=== PATIENT | female | born 1940 | race Two or more races ===

== ENCOUNTER 2017-09-18 14:10 | Inpatient (IN) | payer OTHER ==
[~2017-09-18] VITALS: Ht 162.6 cm; Wt 44.0 kg
[2017-09-18 14:10] VITALS: BP 140/62
[2017-09-18] MEDS ORDERED: Sodium Chloride 500ML 500 ML IV ONE (14:16)
--- NOTE | 2017-09-18 14:32 | Emergency Room Report ---
History of Present Illness General Chief Complaint: Dizziness Source: Patient, EMS Present Illness HPI Patient presents with complaints of significant dizziness Patient also had what sounds to be likely syncopal episode However the patient is a poor historian Reports that she has had dizziness in the past denies any change in medications she has felt weak over the past few days Denies any obvious fevers denies any focal weakness denies any vomiting or diarrhea denies any dysuria frequency Allergies: Uncoded Allergies: "ANTIBIOTICS" (Allergy, Unknown, 09/18/17) Patient History Past Medical History: see triage record Pertinent Family History: none Last Menstrual Period: N/A Now: No Reviewed Nursing Documentation: PMH: Agreed; PSxH: Agreed Nursing Documentation-PMH Past Medical History: No History, Except For History Of Psychiatric Problem: Yes - memory loss, depression Review of Systems All Other Systems: negative except mentioned in HPI Physical Exam Vital Signs Date Time Temp Pulse Resp B/P (MAP) Pulse Ox O2 Delivery O2 Flow Rate FiO2 09/18/17 14:00 98.0 82 20 126/68 98 98.1 Sp02 EP Interpretation: reviewed, normal General Appearance: well appearing, no apparent distress Head: normocephalic, atraumatic Eyes: bilateral eye PERRL, bilateral eye EOMI ENT: hearing grossly normal, normal pharynx, TMs + canals normal, uvula midline Neck: full range of motion, supple, no meningismus, no bony tend Respiratory: lungs clear, normal breath sounds, no rhonchi, no respiratory distress, no retraction, no accessory muscle use Cardiovascular #1: normal peripheral pulses, regular rate, rhythm, no edema, no gallop, no JVD, no murmur Gastrointestinal: normal bowel sounds, non tender, soft, no mass, no organomegaly, non-distended, no guarding, no hernia, no pulsatile mass, no rebound Genitourinary: no CVA tenderness Musculoskeletal: normal inspection Neurologic: oriented x3, responsive, separations scientist III-XII nml as tested, motor strength/ tone normal, sensory intact Psychiatric: mood/affect normal Skin: normal color, no rash, warm/dry, palpation normal Lymphatic: normal inspection, no adenopathy Medical Decision Making Diagnostic Impression: Primary Impression: Dizziness Additional Impression: Syncope ER Course Patient is a fairly complex patient with multiple differential to consideration including but not limited to cardiac cardiopulmonary and vascular emergencies Given the patient's significant dizziness as well MRI was obtained which did not show any acute pathology patient receiving further hydration And requires further inpatient care Labs Test 09/18/17 14:30 09/18/17 15:05 09/19/17 07:34 09/19/17 14:15 White Blood Count 7.2 K/UL (4.8-10.8) 6.9 K/UL (4.8-10.8) Red Blood Count 4.40 M/UL (4.20-5.40) 4.62 M/UL (4.20-5.40) Hemoglobin 13.1 G/DL (12.0-16.0) 13.7 G/DL (12.0-16.0) Hematocrit 37.8 % (37.0-47.0) 40.2 % (37.0-47.0) Mean Corpuscular Volume 86 FL (80-99) 87 FL (80-99) Mean Corpuscular Hemoglobin 29.8 PG (27.0-31.0) 29.7 PG (27.0-31.0) Mean Corpuscular Hemoglobin Concent 34.8 G/DL (32.0-36.0) 34.2 G/DL (32.0-36.0) Red Cell Distribution Width 11.8 % (11.6-14.8) 12.1 % (11.6-14.8) Platelet Count 295 K/UL (150-450) 343 K/UL (150-450) Mean Platelet Volume 5.4 FL (6.5-10.1) 5.2 FL (6.5-10.1) Neutrophils (%) (Auto) 55.7 % (45.0-75.0) 45.4 % (45.0-75.0) Lymphocytes (%) (Auto) 26.3 % (20.0-45.0) 31.6 % (20.0-45.0) Monocytes (%) (Auto) 7.0 % (1.0-10.0) 6.3 % (1.0-10.0) Eosinophils (%) (Auto) 10.2 % (0.0-3.0) 16.0 % (0.0-3.0) Basophils (%) (Auto) 0.9 % (0.0-2.0) 0.7 % (0.0-2.0) Prothrombin Time 10.2 SEC (9.30-11.50) 9.7 SEC (9.30-11.50) Prothromb Time International Ratio 1.0 (0.9-1.1) 0.9 (0.9-1.1) Activated Partial Thromboplast Time 24 SEC (23-33) 19 SEC (23-33) Sodium Level 136 MMOL/L (136-145) 141 MMOL/L (136-145) Potassium Level 3.3 MMOL/L (3.5-5.1) 4.0 MMOL/L (3.5-5.1) Chloride Level 99 MMOL/L (98-107) 104 MMOL/L (98-107) Carbon Dioxide Level 27 MMOL/L (21-32) 27 MMOL/L (21-32) Anion Gap 10 mmol/L (5-15) 10 mmol/L (5-15) Blood Urea Nitrogen 10 mg/dL (7-18) 13 mg/dL (7-18) Creatinine 0.8 MG/DL (0.55-1.30) 0.8 MG/DL (0.55-1.30) Estimat Glomerular Filtration Rate mL/min (>60) mL/min (>60) Glucose Level 107 MG/DL (74-106) 107 MG/DL (74-106) Calcium Level 9.1 MG/DL (8.5-10.1) 9.6 MG/DL (8.5-10.1) Total Bilirubin 0.4 MG/DL (0.2-1.0) 0.5 MG/DL (0.2-1.0) Aspartate Amino Transf (AST/SGOT) 24 U/L (15-37) 24 U/L (15-37) Alanine Aminotransferase (ALT/SGPT) 28 U/L (12-78) 34 U/L (12-78) Alkaline Phosphatase 75 U/L (46-116) 78 U/L (46-116) Total Creatine Kinase 70 U/L (26-308) Creatine Kinase MB < 0.5 NG/ML (0.0-3.6) Creatine Kinase MB Relative Index 0.7 Troponin I 0.000 ng/mL (0.000-0.056) 0.003 ng/mL (0.000-0.056) Total Protein 7.2 G/DL (6.4-8.2) 7.6 G/DL (6.4-8.2) Albumin 3.7 G/DL (3.4-5.0) 3.9 G/DL (3.4-5.0) Globulin 3.5 g/dL 3.7 g/dL Albumin/Globulin Ratio 1.1 (1.0-2.7) 1.1 (1.0-2.7) Lipase 164 U/L (73-393) Urine Color Pale yellow Urine Appearance Clear Urine pH 8 (4.5-8.0) Urine Specific [place] 1.010 (1.005-1.035) Urine Protein Negative (NEGATIVE) Urine Glucose (UA) Negative (NEGATIVE) Urine Ketones Negative (NEGATIVE) Urine Occult Blood 1+ (NEGATIVE) Urine Nitrite Negative (NEGATIVE) Urine Bilirubin Negative (NEGATIVE) Urine Urobilinogen Normal MG/DL (0.0-1.0) Urine Leukocyte Esterase 1+ (NEGATIVE) Urine RBC 2-4 /HPF (0 - 2) Urine WBC 0-2 /HPF (0 - 2) Urine Squamous Epithelial Cells Few /LPF (NONE/OCC) Urine Amorphous Sediment Few /LPF (NONE) Urine Bacteria Few /HPF (NONE) Triglycerides Level 235 MG/DL (30-150) Cholesterol Level 290 MG/DL (< 200) LDL Cholesterol 208 mg/dL (<100) HDL Cholesterol 56 MG/DL (40-60) Cholesterol/HDL Ratio 5.2 (3.3-4.4) Thyroid Stimulating Hormone (TSH) 2.208 uiU/mL (0.358-3.740) EKG Diagnostic Results Rate: normal Rhythm: NSR ST Segments: no acute changes Rhythm Strip Diag. Results EP Interpretation: yes Rate: 66 Rhythm: NSR, no PVC's, no ectopy Chest X-Ray Diagnostic Results Chest X-Ray Diagnostic Results : Chest X-Ray Ordered: Yes # of Views/Limited/Complete: 1 View Indication: Chest Pain EP Interpretation: Yes Interpretation: no consolidation, no effusion Impression: No acute disease Electronically Signed by: Compa Payton, CT/MRI/US Diagnostic Results CT/MRI/US Diagnostic Results : Impression MRI brain no acute disease Last Vital Signs Date Time Temp Pulse Resp B/P (MAP) Pulse Ox O2 Delivery O2 Flow Rate FiO2 09/18/17 14:00 98.0 82 20 126/68 98 98.1 Status: improved Disposition: ADMITTED INPATIENT Condition: Serious Compa Payton DO Sep 18, 2017 14:32
[2017-09-18 15:00] LABS: BASOPHILS % (AUTO) 0.9 % (0.0-2.0); EOSINOPHILS % (AUTO) 10.2 % (0.0-3.0); HEMATOCRIT 37.8 % (37.0-47.0); HEMOGLOBIN 13.1 G/DL (12.0-16.0); LYMPHOCYTES % (AUTO) 26.3 % (20.0-45.0); MEAN CORPUSCULAR VOLUME 86 FL (80-99); NEUTROPHILS % (AUTO) 55.7 % (45.0-75.0); PLATELET COUNT 295 K/UL (150-450); RED CELL DISTRIBUTION WIDTH 11.8 % (11.6-14.8); WHITE BLOOD COUNT 7.2 K/UL (4.8-10.8)
[2017-09-18 15:10] LABS: ANION GAP 10 mmol/L (5-15); BLOOD UREA NITROGEN 10 mg/dL (7-18); CALCIUM 9.1 MG/DL (8.5-10.1); CARBON DIOXIDE 27 MMOL/L (21-32); CHLORIDE 99 MMOL/L (98-107); CREATININE 0.8 MG/DL (0.55-1.30); POTASSIUM 3.3 MMOL/L (3.5-5.1); SODIUM 136 MMOL/L (136-145)
[2017-09-18 15:11] VITALS: BP 135/60
[2017-09-18 15:23] LABS: ALANINE AMINOTRANSFERASE 28 U/L (12-78); ALBUMIN 3.7 G/DL (3.4-5.0); ALBUMIN/GLOBULIN RATIO 1.1 (1.0-2.7); ALKALINE PHOSPHATASE 75 U/L (46-116); ASPARTATE AMINO TRANSFERASE 24 U/L (15-37); BILIRUBIN,TOTAL 0.4 MG/DL (0.2-1.0); CKMB < 0.5 NG/ML (0.0-3.6); CREATINE KINASE 70 U/L (26-308)
[2017-09-18] MEDS ORDERED: RANITIDINE HCL150 MG ORAL (15:36)
[2017-09-18] MEDS ORDERED: FOLIC ACID1 MG ORAL (15:36)
[2017-09-18] MEDS ORDERED: DONEPEZIL HCL5 M2 ORAL (15:36)
[2017-09-18] MEDS ORDERED: D3 DOTS2000 UNI1 PO (15:36)
--- NOTE | 2017-09-18 15:48 | Diagnostic Imaging Report ---
Indication: Chest pain Technique: One view of the chest Comparison: none Findings: Lungs and pleural spaces are clear. Heart size is normal. The aorta is somewhat tortuous and ectatic. There are left axillary surgical clips Impression: No acute process
[2017-09-18 15:50] LABS: APPEARANCE,URINE CLEAR; BILIRUBIN, URINE NEGATIVE (NEGATIVE); COLOR,URINE PALE YELLOW; GLUCOSE, URINE (UA) NEGATIVE (NEGATIVE); KETONES,URINE NEGATIVE (NEGATIVE); LEUKOCYTE ESTERASE ,URINE 1+ (NEGATIVE); NITRITE,URINE NEGATIVE (NEGATIVE); PH,URINE 8 (4.5-8.0); PROTEIN,URINE NEGATIVE (NEGATIVE); UROBILINOGEN,URINE NORMAL MG/DL (0.0-1.0)
[2017-09-18 16:30] VITALS: BP 132/64
[2017-09-18 19:20] VITALS: BP 142/54
[2017-09-18] MEDS ORDERED: Mylanta II UD 30ml ORAL PRN (19:30)
[2017-09-18] MEDS ORDERED: Nitroglycerin Subl 0.4mg tab SL PRN (19:30)
[2017-09-18] MEDS ORDERED: Albuterol/Ipratropium 3ml neb HHN PRN (19:30)
[2017-09-18] MEDS ORDERED: Morphine Sulfate 4mg/ml Inj IVP PRN (19:30)
[2017-09-18] MEDS ORDERED: LORazepam Inj 2mg/ml 1ml IV PRN (19:30)
[2017-09-18] MEDS ORDERED: Miralax 17gm pkt ORAL PRN (19:30)
[2017-09-18 20:54] VITALS: BP 123/65
[2017-09-18] MEDS: Heparin 5000 units/ml inj SUBQ SCH (22:06)
[2017-09-19] VITALS: BP 140/69
[2017-09-19] MEDS ORDERED: ALENDRONATE SOD70 MG PO (02:02)
[2017-09-19] MEDS ORDERED: MIRTAZAPINE15 M3 PO (02:02)
[2017-09-19 04:00] VITALS: BP 144/62
[2017-09-19 08:00] VITALS: BP 128/64
[2017-09-19] MEDS: Donepezil 5mg Tab ORAL SCH (08:15)
[2017-09-19] MEDS: Heparin 5000 units/ml inj SUBQ SCH ×2 (08:17→21:14)
--- NOTE | 2017-09-19 08:44 | Diagnostic Imaging Report ---
Indication: Dizziness and vertigo Technique: sagittal T1 fast spin echo, axial T1 FLAIR, axial T2 FLAIR, axial T2 FS PROPELLER, axial T2* GRE, axial diffusion weighted images. ADC and exponential ADC maps generated Comparison: none Findings: No abnormal areas of restricted diffusion to suggest acute infarction. No acute hemorrhage or edema. No mass effect nor midline shift. There is mild age-related enlargement of the ventricles and extra axial CSF spaces. There is evidence of prior bilateral cataract surgery. The sinuses are unremarkable. The vascular flow voids are preserved. Impression: Essentially unremarkable exam. Minimal age-related volume loss is noted This agrees with the preliminary interpretation provided overnight by [facility] teleradiology service.
[2017-09-19 09:10] LABS: INR 0.9 (0.9-1.1)
[2017-09-19 09:11] LABS: BASOPHILS % (AUTO) 0.7 % (0.0-2.0); HEMATOCRIT 40.2 % (37.0-47.0); HEMOGLOBIN 13.7 G/DL (12.0-16.0); LYMPHOCYTES % (AUTO) 31.6 % (20.0-45.0); MEAN CORPUSCULAR VOLUME 87 FL (80-99); MONOCYTES % (AUTO) 6.3 % (1.0-10.0); NEUTROPHILS % (AUTO) 45.4 % (45.0-75.0); PLATELET COUNT 343 K/UL (150-450); RED BLOOD COUNT 4.62 M/UL (4.20-5.40); RED CELL DISTRIBUTION WIDTH 12.1 % (11.6-14.8); WHITE BLOOD COUNT 6.9 K/UL (4.8-10.8)
[2017-09-19 09:37] LABS: ALANINE AMINOTRANSFERASE 34 U/L (12-78); ALBUMIN 3.9 G/DL (3.4-5.0); ALBUMIN/GLOBULIN RATIO 1.1 (1.0-2.7); ALKALINE PHOSPHATASE 78 U/L (46-116); ANION GAP 10 mmol/L (5-15); ASPARTATE AMINO TRANSFERASE 24 U/L (15-37); BILIRUBIN,TOTAL 0.5 MG/DL (0.2-1.0); BLOOD UREA NITROGEN 13 mg/dL (7-18); CALCIUM 9.6 MG/DL (8.5-10.1); CARBON DIOXIDE 27 MMOL/L (21-32); CHLORIDE 104 MMOL/L (98-107); CHOLESTEROL 290 MG/DL (< 200); CREATININE 0.8 MG/DL (0.55-1.30); HDL CHOLESTEROL 56 MG/DL (40-60); SODIUM 141 MMOL/L (136-145); TRIGLYCERIDES 235 MG/DL (30-150)
--- NOTE | 2017-09-19 11:55 | Cardiology Progress Note ---
Assessment/Plan Assessment/Plan syncope diarrhea hyperlipiedemia breast cancer hx s/p lumpectomy and chem ivf othostatic trop this am echo to be reviwed repeat ekgh tele so fare neg watch for diarrhea carotidiu duplex treat hyperlipdiemai if any vascular disease on carotid info obtained vie staff who speak khmer [id number] Objective Last 24 Hour Vital Signs Date Time Temp Pulse Resp B/P (MAP) Pulse Ox O2 Delivery O2 Flow Rate FiO2 09/19/17 10:15 80 18 Room Air 21 09/19/17 08:00 97.6 80 19 128/64 97 Room Air 97.6 09/19/17 08:00 86 09/19/17 04:08 74 09/19/17 04:00 97.6 74 19 144/62 97 Room Air 97.6 09/19/17 00:00 98.0 78 18 140/69 98 Room Air 98.0 09/19/17 00:00 71 09/18/17 21:20 98.3 71 12 123/65 99 Room Air 98.3 09/18/17 20:54 98.3 71 12 123/65 99 Room Air 98.3 09/18/17 19:20 98.3 70 13 142/54 99 Room Air 98.3 09/18/17 16:30 98.1 74 16 132/64 100 Room Air 98.1 09/18/17 15:11 98.1 75 14 135/60 100 Room Air 98.1 09/18/17 14:10 98.1 76 14 140/62 99 Room Air 98.1 09/18/17 14:00 98.0 82 20 126/68 98 98.1 Intake and Output 09/18/17 09/19/17 19:00 07:00 Intake Total 0 ml 240 ml Balance 0 ml 240 ml Intake Oral 0 ml 240 ml # Voids 4 Laboratory Tests Test 09/18/17 14:30 09/18/17 15:05 09/19/17 07:34 White Blood Count 7.2 K/UL (4.8-10.8) 6.9 K/UL (4.8-10.8) Red Blood Count 4.40 M/UL (4.20-5.40) 4.62 M/UL (4.20-5.40) Hemoglobin 13.1 G/DL (12.0-16.0) 13.7 G/DL (12.0-16.0) Hematocrit 37.8 % (37.0-47.0) 40.2 % (37.0-47.0) Mean Corpuscular Volume 86 FL (80-99) 87 FL (80-99) Mean Corpuscular Hemoglobin 29.8 PG (27.0-31.0) 29.7 PG (27.0-31.0) Mean Corpuscular Hemoglobin Concent 34.8 G/DL (32.0-36.0) 34.2 G/DL (32.0-36.0) Red Cell Distribution Width 11.8 % (11.6-14.8) 12.1 % (11.6-14.8) Platelet Count 295 K/UL (150-450) 343 K/UL (150-450) Mean Platelet Volume 5.4 FL (6.5-10.1) L 5.2 FL (6.5-10.1) L Neutrophils (%) (Auto) 55.7 % (45.0-75.0) 45.4 % (45.0-75.0) Lymphocytes (%) (Auto) 26.3 % (20.0-45.0) 31.6 % (20.0-45.0) Monocytes (%) (Auto) 7.0 % (1.0-10.0) 6.3 % (1.0-10.0) Eosinophils (%) (Auto) 10.2 % (0.0-3.0) H 16.0 % (0.0-3.0) H Basophils (%) (Auto) 0.9 % (0.0-2.0) 0.7 % (0.0-2.0) Prothrombin Time 10.2 SEC (9.30-11.50) 9.7 SEC (9.30-11.50) Prothromb Time International Ratio 1.0 (0.9-1.1) 0.9 (0.9-1.1) Activated Partial Thromboplast Time 24 SEC (23-33) 19 SEC (23-33) L Sodium Level 136 MMOL/L (136-145) 141 MMOL/L (136-145) Potassium Level 3.3 MMOL/L (3.5-5.1) L 4.0 MMOL/L (3.5-5.1) Chloride Level 99 MMOL/L (98-107) 104 MMOL/L (98-107) Carbon Dioxide Level 27 MMOL/L (21-32) 27 MMOL/L (21-32) Anion Gap 10 mmol/L (5-15) 10 mmol/L (5-15) Blood Urea Nitrogen 10 mg/dL (7-18) 13 mg/dL (7-18) Creatinine 0.8 MG/DL (0.55-1.30) 0.8 MG/DL (0.55-1.30) Estimat Glomerular Filtration Rate mL/min (>60) mL/min (>60) Glucose Level 107 MG/DL (74-106) H 107 MG/DL (74-106) H Calcium Level 9.1 MG/DL (8.5-10.1) 9.6 MG/DL (8.5-10.1) Total Bilirubin 0.4 MG/DL (0.2-1.0) 0.5 MG/DL (0.2-1.0) Aspartate Amino Transf (AST/SGOT) 24 U/L (15-37) 24 U/L (15-37) Alanine Aminotransferase (ALT/SGPT) 28 U/L (12-78) 34 U/L (12-78) Alkaline Phosphatase 75 U/L (46-116) 78 U/L (46-116) Total Creatine Kinase 70 U/L (26-308) Creatine Kinase MB < 0.5 NG/ML (0.0-3.6) Creatine Kinase MB Relative Index 0.7 Troponin I 0.000 ng/mL (0.000-0.056) Total Protein 7.2 G/DL (6.4-8.2) 7.6 G/DL (6.4-8.2) Albumin 3.7 G/DL (3.4-5.0) 3.9 G/DL (3.4-5.0) Globulin 3.5 g/dL 3.7 g/dL Albumin/Globulin Ratio 1.1 (1.0-2.7) 1.1 (1.0-2.7) Lipase 164 U/L (73-393) Urine Color Pale yellow Urine Appearance Clear Urine pH 8 (4.5-8.0) Urine Specific [place] 1.010 (1.005-1.035) Urine Protein Negative (NEGATIVE) Urine Glucose (UA) Negative (NEGATIVE) Urine Ketones Negative (NEGATIVE) Urine Occult Blood 1+ (NEGATIVE) H Urine Nitrite Negative (NEGATIVE) Urine Bilirubin Negative (NEGATIVE) Urine Urobilinogen Normal MG/DL (0.0-1.0) Urine Leukocyte Esterase 1+ (NEGATIVE) H Urine RBC 2-4 /HPF (0 - 2) H Urine WBC 0-2 /HPF (0 - 2) Urine Squamous Epithelial Cells Few /LPF (NONE/OCC) Urine Amorphous Sediment Few /LPF (NONE) H Urine Bacteria Few /HPF (NONE) Triglycerides Level 235 MG/DL (30-150) H Cholesterol Level 290 MG/DL (< 200) H LDL Cholesterol 208 mg/dL (<100) H HDL Cholesterol 56 MG/DL (40-60) Cholesterol/HDL Ratio 5.2 (3.3-4.4) H Thyroid Stimulating Hormone (TSH) 2.208 uiU/mL (0.358-3.740) GISELA CLINE Sep 19, 2017 11:55
[2017-09-19 12:00] VITALS: BP 127/70
--- NOTE | 2017-09-19 12:29 | History and Physical ---
History of Present Illness General Date patient seen: Sep 19, 2017 Reason for Hospitalization: Dizziness Present Illness HPI 77 year old female with hx of Depression, breast cancer, s/p resection and chemo BIBA from bus stop where patient has a syncopal episode but denies LOC. Patient fell to her buttocks and denies any injury nor trauma. Patient is [place] Zealander speaking only. Patient is A/OX4, ambulatory, calm and cooperative. She is c/o of recent diarrhea. No episode of chest pain reported. Allergies: Uncoded Allergies: "ANTIBIOTICS" (Allergy, Unknown, 09/18/17) Medication History Scheduled Alendronate Sodium* (Fosamax*), 70 MG PO QWEEK, (Reported) Cholecalciferol (Vitamin D3) (D3 Dots), 100 UNIT PO DAILY, (Reported) Donepezil Hcl* (Donepezil Hcl*), 5 MG ORAL DAILY, (Reported) Folic Acid* (Folic Acid*), 1 MG ORAL DAILY, (Reported) Mirtazapine* (Mirtazapine*), 15 MG PO DAILY, (Reported) Ranitidine Hcl* (Zantac*), 150 MG ORAL TWICE A DAY, (Reported) Patient History Healthcare decision maker Resuscitation status Full Code Advanced Directive on File Past Medical/Surgical History Past Medical/Surgical History: (1) Hypertension (2) Breast cancer Review of Systems All Other Systems: negative except mentioned in HPI Physical Exam General Appearance: cachetic Lines, tubes and drains: peripheral HEENT: normocephalic, atraumatic Neck: non-tender, normal alignment Respiratory/Chest: chest wall non-tender, lungs clear Breasts: no masses Cardiovascular/Chest: normal peripheral pulses Genitourinary/Rectal: normal genital exam Extremities: normal range of motion Skin Exam: normal pigmentation Last 24 Hour Vital Signs Date Time Temp Pulse Resp B/P (MAP) Pulse Ox O2 Delivery O2 Flow Rate FiO2 09/19/17 10:15 80 18 Room Air 21 09/19/17 08:00 97.6 80 19 128/64 97 Room Air 97.6 09/19/17 08:00 86 09/19/17 04:08 74 09/19/17 04:00 97.6 74 19 144/62 97 Room Air 97.6 09/19/17 00:00 98.0 78 18 140/69 98 Room Air 98.0 09/19/17 00:00 71 09/18/17 21:20 98.3 71 12 123/65 99 Room Air 98.3 09/18/17 20:54 98.3 71 12 123/65 99 Room Air 98.3 09/18/17 19:20 98.3 70 13 142/54 99 Room Air 98.3 09/18/17 16:30 98.1 74 16 132/64 100 Room Air 98.1 09/18/17 15:11 98.1 75 14 135/60 100 Room Air 98.1 09/18/17 14:10 98.1 76 14 140/62 99 Room Air 98.1 09/18/17 14:00 98.0 82 20 126/68 98 98.1 Intake and Output 09/18/17 09/19/17 19:00 07:00 Intake Total 0 ml 240 ml Balance 0 ml 240 ml Intake Oral 0 ml 240 ml # Voids 4 Laboratory Tests Test 09/18/17 14:30 09/18/17 15:05 09/19/17 07:34 White Blood Count 7.2 K/UL (4.8-10.8) 6.9 K/UL (4.8-10.8) Red Blood Count 4.40 M/UL (4.20-5.40) 4.62 M/UL (4.20-5.40) Hemoglobin 13.1 G/DL (12.0-16.0) 13.7 G/DL (12.0-16.0) Hematocrit 37.8 % (37.0-47.0) 40.2 % (37.0-47.0) Mean Corpuscular Volume 86 FL (80-99) 87 FL (80-99) Mean Corpuscular Hemoglobin 29.8 PG (27.0-31.0) 29.7 PG (27.0-31.0) Mean Corpuscular Hemoglobin Concent 34.8 G/DL (32.0-36.0) 34.2 G/DL (32.0-36.0) Red Cell Distribution Width 11.8 % (11.6-14.8) 12.1 % (11.6-14.8) Platelet Count 295 K/UL (150-450) 343 K/UL (150-450) Mean Platelet Volume 5.4 FL (6.5-10.1) L 5.2 FL (6.5-10.1) L Neutrophils (%) (Auto) 55.7 % (45.0-75.0) 45.4 % (45.0-75.0) Lymphocytes (%) (Auto) 26.3 % (20.0-45.0) 31.6 % (20.0-45.0) Monocytes (%) (Auto) 7.0 % (1.0-10.0) 6.3 % (1.0-10.0) Eosinophils (%) (Auto) 10.2 % (0.0-3.0) H 16.0 % (0.0-3.0) H Basophils (%) (Auto) 0.9 % (0.0-2.0) 0.7 % (0.0-2.0) Prothrombin Time 10.2 SEC (9.30-11.50) 9.7 SEC (9.30-11.50) Prothromb Time International Ratio 1.0 (0.9-1.1) 0.9 (0.9-1.1) Activated Partial Thromboplast Time 24 SEC (23-33) 19 SEC (23-33) L Sodium Level 136 MMOL/L (136-145) 141 MMOL/L (136-145) Potassium Level 3.3 MMOL/L (3.5-5.1) L 4.0 MMOL/L (3.5-5.1) Chloride Level 99 MMOL/L (98-107) 104 MMOL/L (98-107) Carbon Dioxide Level 27 MMOL/L (21-32) 27 MMOL/L (21-32) Anion Gap 10 mmol/L (5-15) 10 mmol/L (5-15) Blood Urea Nitrogen 10 mg/dL (7-18) 13 mg/dL (7-18) Creatinine 0.8 MG/DL (0.55-1.30) 0.8 MG/DL (0.55-1.30) Estimat Glomerular Filtration Rate mL/min (>60) mL/min (>60) Glucose Level 107 MG/DL (74-106) H 107 MG/DL (74-106) H Calcium Level 9.1 MG/DL (8.5-10.1) 9.6 MG/DL (8.5-10.1) Total Bilirubin 0.4 MG/DL (0.2-1.0) 0.5 MG/DL (0.2-1.0) Aspartate Amino Transf (AST/SGOT) 24 U/L (15-37) 24 U/L (15-37) Alanine Aminotransferase (ALT/SGPT) 28 U/L (12-78) 34 U/L (12-78) Alkaline Phosphatase 75 U/L (46-116) 78 U/L (46-116) Total Creatine Kinase 70 U/L (26-308) Creatine Kinase MB < 0.5 NG/ML (0.0-3.6) Creatine Kinase MB Relative Index 0.7 Troponin I 0.000 ng/mL (0.000-0.056) Total Protein 7.2 G/DL (6.4-8.2) 7.6 G/DL (6.4-8.2) Albumin 3.7 G/DL (3.4-5.0) 3.9 G/DL (3.4-5.0) Globulin 3.5 g/dL 3.7 g/dL Albumin/Globulin Ratio 1.1 (1.0-2.7) 1.1 (1.0-2.7) Lipase 164 U/L (73-393) Urine Color Pale yellow Urine Appearance Clear Urine pH 8 (4.5-8.0) Urine Specific [place] 1.010 (1.005-1.035) Urine Protein Negative (NEGATIVE) Urine Glucose (UA) Negative (NEGATIVE) Urine Ketones Negative (NEGATIVE) Urine Occult Blood 1+ (NEGATIVE) H Urine Nitrite Negative (NEGATIVE) Urine Bilirubin Negative (NEGATIVE) Urine Urobilinogen Normal MG/DL (0.0-1.0) Urine Leukocyte Esterase 1+ (NEGATIVE) H Urine RBC 2-4 /HPF (0 - 2) H Urine WBC 0-2 /HPF (0 - 2) Urine Squamous Epithelial Cells Few /LPF (NONE/OCC) Urine Amorphous Sediment Few /LPF (NONE) H Urine Bacteria Few /HPF (NONE) Triglycerides Level 235 MG/DL (30-150) H Cholesterol Level 290 MG/DL (< 200) H LDL Cholesterol 208 mg/dL (<100) H HDL Cholesterol 56 MG/DL (40-60) Cholesterol/HDL Ratio 5.2 (3.3-4.4) H Thyroid Stimulating Hormone (TSH) 2.208 uiU/mL (0.358-3.740) Height (Feet): 5 Height (Inches): 4.00 Weight (Pounds): 97 Medications Current Medications Medications (Trade) Dose Ordered Sig/Michael Route PRN Reason Start Time Stop Time Status Last Admin Dose Admin Acetaminophen (Tylenol) 650 mg Q4H PRN ORAL Mild Pain/Temp > 100.5 09/19/17 03:30 10/18/17 19:29 Al Hydroxide/Mg Hydroxide (Mylanta II) 30 ml Q6H PRN ORAL dyspepsia 09/18/17 19:30 10/18/17 19:29 Albuterol/ Ipratropium (Albuterol/ Ipratropium) 3 ml EVERY 4 HOURS PRN HHN Shortness of Breath 09/18/17 19:30 09/23/17 19:29 Clonidine HCl (Catapres Tab) 0.1 mg Q4H PRN ORAL For High Blood Pressure 09/18/17 19:30 10/18/17 19:29 Dextrose (Dextrose 50%) 25 ml STAT PRN IV Hypoglycemia 09/18/17 19:30 10/18/17 19:29 Dextrose (Dextrose 50%) 50 ml STAT PRN IV Hypoglycemia 09/18/17 19:30 10/18/17 19:29 Donepezil HCl (Aricept) 5 mg DAILY ORAL 09/19/17 09:00 10/19/17 08:59 09/19/17 08:15 Heparin Sodium (Porcine) (Heparin 5000 units/ml) 5,000 units EVERY 12 HOURS SUBQ 09/18/17 21:00 10/18/17 20:59 09/19/17 08:17 Lorazepam (Ativan 2mg/ml 1ml) 0.5 mg Q4H PRN IV For Anxiety 09/18/17 19:30 09/25/17 19:29 Morphine Sulfate (Morphine Sulfate) 1 mg EVERY 4 HOURS PRN IVP For Pain 7-10 09/18/17 19:30 09/25/17 19:29 Nitroglycerin (Ntg) 0.4 mg Q5M X 3 DOSES PRN SL Prn Chest Pain 09/18/17 19:30 10/18/17 19:29 Ondansetron HCl (Zofran) 4 mg Q6H PRN IVP Nausea & Vomiting 09/18/17 19:30 10/18/17 19:29 Polyethylene Glycol (Miralax) 17 gm HSPRN PRN ORAL Constipation 09/18/17 19:30 10/18/17 19:29 Sodium Chloride 1,000 ml @ 75 mls/hr [id number] IV 09/19/17 12:00 10/19/17 11:59 Temazepam (Restoril) 15 mg HSPRN PRN ORAL Insomnia 09/18/17 19:30 09/25/17 19:29 Assessment/Plan Problem List: (1) Acute encephalopathy ICD Codes: G93.40 - Encephalopathy, unspecified SNOMED: 31287970, [id number] (2) Syncope ICD Codes: R55 - Syncope and collapse SNOMED: 613824278 (3) Breast cancer ICD Codes: C50.919 - Malignant neoplasm of unspecified site of unspecified female breast SNOMED: 435647961 (4) Depression ICD Codes: F32.9 - Major depressive disorder, single episode, unspecified SNOMED: 87231098 Assessment/Plan telemetry monitoring echo doppler of carotid artery cardiology evaluation Maryse Estes MD Sep 19, 2017 12:29
--- NOTE | 2017-09-19 12:59 | Cardiology Report ---
APPROVED REPORT EXAM: Two-dimensional and M-mode echocardiogram with Doppler and color Doppler. INDICATION LV function M-Mode DIMENSIONS IVSd1.3 (0.7-1.1cm)Left Atrium (MM)2.2 (1.6-4.0cm) LVDd4.8 (3.5-5.6cm)Aortic Root3.1 (2.0-3.7cm) PWd1.3 (0.7-1.1cm)Aortic Cusp Exc.1.7 (1.5-2.0cm) LVDs3.2 (2.5-4.0cm) PWs1.7 cm Normal left ventricular chamber size, systolic function and wall motion. Left ventricular ejection fraction estimated to be 500-55 %. Mild left ventricular hypertrophy. No evidence of pericardial effusion. All other cardiac chamber sizes are within normal limits. Mild focal aortic valve sclerosis with adequate cusp excursion. Mildly thickened mitral valve leaflets with normal excursion. Mitral annulus and aortic root calcification. Pulmonic valve not well visualized. Normal tricuspid valve structure. IVC at normal size with physiologic collapse. A color flow and spectral Doppler study was performed and revealed: Mild aortic regurgitation. Mild mitral regurgitation. Mitral diastolic velocities suggest reduced left ventricular relaxation c/w mild LV diastolic dysfunction (Grade I ). Mild tricuspid regurgitation. Tricuspid systolic velocities suggests peak right ventricular systolic pressure of 34 mmHg.
--- NOTE | 2017-09-19 13:43 | Cardiology Report ---
APPROVED REPORT EKG Measurement Heart [id number] Normal sinus rhythm Prolonged QT Abnormal ECG
[2017-09-19 16:00] VITALS: BP 143/70
--- NOTE | 2017-09-19 18:00 | Consultation ---
DATE OF CONSULTATION: 09/19/2017 CARDIOLOGY CONSULTATION CONSULTING PHYSICIAN: Pepe Arriaza M.D. REFERRING PHYSICIAN: Maryse Estes M.D. REASON FOR REFERRAL: Possible syncope. HISTORY OF PRESENT ILLNESS: This is an elderly female, who has had an episode of falling yesterday. She had a couple bouts of diarrhea at home and she got up to go to the store into the light and as she was walking she felt dizzy and she passed out and fell on the floor. She tried to get up the second time, got up stood up and then felt dizzy and fainted again. The paramedics were summoned. The patient was evaluated by them and their notes indicate the patient was found oriented, complaining of dizziness with a ground level fall. No other complaints at that time. She did not injure herself. They mention that she did not have any syncope. They documented a blood pressure of 130/75 with a heart rate of 88 at the time of being found saturation of 98% and her blood pressure does not seem to change much on route. The patient does however indicate that she has had episodes of syncope on several occasions previously a year ago. She has been eating, but no vomiting. She did have the diarrhea yesterday as mentioned. The patient denies any pain, pressure or tightness in her chest. She does occasionally get up because of shortness of breath. Walks around, drink some milk and eventually goes back to bed. She has occasionally had to sleep in a sitting position because of shortness of breath. She denies any heart pounding or palpitations. PAST MEDICAL HISTORY: Positive for depression and history of breast cancer status post lumpectomy and chemotherapy. She also has a depression and osteoporosis. She denies any diabetes or high blood pressure high cholesterol, heart attack, stroke, hepatitis, tuberculosis, asthma, emphysema. No ulcers. No kidney, liver problems, thyroid problems, anemia, or arthritis. ALLERGIES: She is allergic to seafood and several antibiotics. SOCIAL HISTORY: She does not smoke, does not drink alcoholic beverages and no drug use. She lives alone by herself. REVIEW OF SYSTEMS: GASTROINTESTINAL: Positive for diarrhea on a couple occasions yesterday. No bloody or black stools. GENITOURINARY: She denies. PULMONARY: She denies. CONSTITUTIONAL: She does have some sweats at times. NEUROLOGIC: Negative. PHYSICAL EXAMINATION: GENERAL: Shows to be elderly female, in no respiratory distress. HEENT: Unremarkable. NECK: Supple. No jugular venous distention. No abdominojugular reflux noted. LUNGS: Appear to be clear to auscultation and percussion. CARDIAC: S1 is normal. S2 is normal. Regular rate and rhythm. No heaves, thrills, or gallops noted. ABDOMEN: Soft and nontender. Positive bowel sounds. EXTREMITIES: There is no edema. NEUROLOGICAL: Awake, alert, and responsive, in no apparent respiratory distress. LABORATORY AND DIAGNOSTIC DATA: White count 6.9, hemoglobin 13.7, and platelet count 343. Sodium is 141, potassium 4.0, chloride 104, bicarbonate 27, BUN of 13 and creatinine 0.8. She did have a blood sugar of 107. Troponin one set was okay. Albumin of 3.9. Triglycerides of 235 and total cholesterol of 290 with a LDL of 208 and HDL of 56, and TSH of 2.2. Her coagulations, INR 0.9 and PTT of 19. Her urinalysis is fairly unremarkable with 1+ leukocyte esterase, 2-4 rbc's and 0-2 wbc's. She has had some studies including a chest x-ray that showed no acute processes and she did have an MRI of her brain already today that shows unremarkable examination, minimal age related volume loss is noted. Her electrocardiogram shows normal sinus rhythm with some nonspecific T-wave changes and telemetry is unremarkable. The preliminary echocardiogram shows ejection fraction of 60% and moderate aortic regurgitation being documented. ASSESSMENT AND PLAN: 1. Syncope/near syncope. 2. Diarrhea. 3. History of breast cancer. 4. Osteoporosis. 5. Depression. 6. Hyperlipidemia. Dr. Estes, this patient was seen in cardiac consultation. The patient's episode of syncope occurred apparently after 2 sets of diarrhea. Her telemetry and EKG are fairly unremarkable. Echocardiogram shows normal wall motion. Preliminary, she does have some aortic regurgitation and does not appear to be in any significant degree. I will review that echocardiogram. Orthostatic vitals will be ordered. IV fluids will be administered for the time being and she does have significantly elevated cholesterol. She should have a carotid duplex performed if she has any degree of calcification of her carotid arteries. I suspect she should be on medication for her significant elevated lipids and repeat cardiac enzymes to be performed, although she does not endorse any symptoms of coronary syndrome. Pepe Arriaza M.D. DR: ANDREA JOB#: [id number] CC:
[2017-09-19 20:00] VITALS: BP 130/72
--- NOTE | 2017-09-19 23:27 | Consultation ---
History of Present Illness General Date patient seen: Sep 19, 2017 Chief Complaint: Dizziness Present Illness HPI the pt is a 77 yo female with hx of depression mmp who was admitted after a fall. the pt stated that she has been dx with dementia however it is mild. she came to hospital on remeron and aricept. the pt has been anxious. no si/hi Allergies: Uncoded Allergies: "ANTIBIOTICS" (Allergy, Unknown, 09/18/17) Medication History Scheduled Alendronate Sodium* (Fosamax*), 70 MG PO QWEEK, (Reported) Cholecalciferol (Vitamin D3) (D3 Dots), 100 UNIT PO DAILY, (Reported) Donepezil Hcl* (Donepezil Hcl*), 5 MG ORAL DAILY, (Reported) Folic Acid* (Folic Acid*), 1 MG ORAL DAILY, (Reported) Mirtazapine* (Mirtazapine*), 15 MG PO DAILY, (Reported) Ranitidine Hcl* (Zantac*), 150 MG ORAL TWICE A DAY, (Reported) Patient History Limited by: medical condition History Provided By: Patient, Medical Record, PMD Healthcare decision maker Resuscitation status Full Code Advanced Directive on File Past Medical/Surgical History Past Medical/Surgical History: (1) Breast cancer (2) Hypertension (3) Depression (4) Syncope (5) Acute encephalopathy Review of Systems Psychiatric: Reports: prior hx, anxiety, depressed feelings, emotional problems Physical Exam General Appearance: no apparent distress, alert Neurologic: oriented x 3, responsive, depressed affect Last 24 Hour Vital Signs Date Time Temp Pulse Resp B/P (MAP) Pulse Ox O2 Delivery O2 Flow Rate FiO2 09/19/17 20:00 83 09/19/17 20:00 97.9 74 16 130/72 97 Room Air 21 97.9 09/19/17 16:00 97.6 92 18 143/70 97 Room Air 21 97.6 09/19/17 16:00 93 09/19/17 12:00 97.6 78 18 127/70 97 Room Air 21 97.6 09/19/17 12:00 73 09/19/17 11:58 78 79 77 09/19/17 10:15 80 18 Room Air 21 09/19/17 08:00 97.6 80 19 128/64 97 Room Air 97.6 09/19/17 08:00 86 09/19/17 04:08 74 09/19/17 04:00 97.6 74 19 144/62 97 Room Air 97.6 09/19/17 00:00 98.0 78 18 140/69 98 Room Air 98.0 09/19/17 00:00 71 Intake and Output 09/18/17 09/19/17 19:00 07:00 Intake Total 0 ml 240 ml Balance 0 ml 240 ml Intake Oral 0 ml 240 ml # Voids 4 Laboratory Tests Test 09/19/17 07:34 09/19/17 14:15 White Blood Count 6.9 K/UL (4.8-10.8) Red Blood Count 4.62 M/UL (4.20-5.40) Hemoglobin 13.7 G/DL (12.0-16.0) Hematocrit 40.2 % (37.0-47.0) Mean Corpuscular Volume 87 FL (80-99) Mean Corpuscular Hemoglobin 29.7 PG (27.0-31.0) Mean Corpuscular Hemoglobin Concent 34.2 G/DL (32.0-36.0) Red Cell Distribution Width 12.1 % (11.6-14.8) Platelet Count 343 K/UL (150-450) Mean Platelet Volume 5.2 FL (6.5-10.1) L Neutrophils (%) (Auto) 45.4 % (45.0-75.0) Lymphocytes (%) (Auto) 31.6 % (20.0-45.0) Monocytes (%) (Auto) 6.3 % (1.0-10.0) Eosinophils (%) (Auto) 16.0 % (0.0-3.0) H Basophils (%) (Auto) 0.7 % (0.0-2.0) Prothrombin Time 9.7 SEC (9.30-11.50) Prothromb Time International Ratio 0.9 (0.9-1.1) Activated Partial Thromboplast Time 19 SEC (23-33) L Sodium Level 141 MMOL/L (136-145) Potassium Level 4.0 MMOL/L (3.5-5.1) Chloride Level 104 MMOL/L (98-107) Carbon Dioxide Level 27 MMOL/L (21-32) Anion Gap 10 mmol/L (5-15) Blood Urea Nitrogen 13 mg/dL (7-18) Creatinine 0.8 MG/DL (0.55-1.30) Estimat Glomerular Filtration Rate mL/min (>60) Glucose Level 107 MG/DL (74-106) H Calcium Level 9.6 MG/DL (8.5-10.1) Total Bilirubin 0.5 MG/DL (0.2-1.0) Aspartate Amino Transf (AST/SGOT) 24 U/L (15-37) Alanine Aminotransferase (ALT/SGPT) 34 U/L (12-78) Alkaline Phosphatase 78 U/L (46-116) Total Protein 7.6 G/DL (6.4-8.2) Albumin 3.9 G/DL (3.4-5.0) Globulin 3.7 g/dL Albumin/Globulin Ratio 1.1 (1.0-2.7) Triglycerides Level 235 MG/DL (30-150) H Cholesterol Level 290 MG/DL (< 200) H LDL Cholesterol 208 mg/dL (<100) H HDL Cholesterol 56 MG/DL (40-60) Cholesterol/HDL Ratio 5.2 (3.3-4.4) H Thyroid Stimulating Hormone (TSH) 2.208 uiU/mL (0.358-3.740) Troponin I 0.003 ng/mL (0.000-0.056) Height (Feet): 5 Height (Inches): 4.00 Weight (Pounds): 97 Medications Current Medications Medications (Trade) Dose Ordered Sig/Michael Route PRN Reason Start Time Stop Time Status Last Admin Dose Admin Acetaminophen (Tylenol) 650 mg Q4H PRN ORAL Mild Pain/Temp > 100.5 09/19/17 03:30 10/18/17 19:29 Al Hydroxide/Mg Hydroxide (Mylanta II) 30 ml Q6H PRN ORAL dyspepsia 09/18/17 19:30 10/18/17 19:29 Albuterol/ Ipratropium (Albuterol/ Ipratropium) 3 ml EVERY 4 HOURS PRN HHN Shortness of Breath 09/18/17 19:30 09/23/17 19:29 Clonidine HCl (Catapres Tab) 0.1 mg Q4H PRN ORAL For High Blood Pressure 09/18/17 19:30 10/18/17 19:29 Dextrose (Dextrose 50%) 25 ml STAT PRN IV Hypoglycemia 09/18/17 19:30 10/18/17 19:29 Dextrose (Dextrose 50%) 50 ml STAT PRN IV Hypoglycemia 09/18/17 19:30 10/18/17 19:29 Donepezil HCl (Aricept) 5 mg DAILY ORAL 09/19/17 09:00 10/19/17 08:59 09/19/17 08:15 Heparin Sodium (Porcine) (Heparin 5000 units/ml) 5,000 units EVERY 12 HOURS SUBQ 09/18/17 21:00 10/18/17 20:59 09/19/17 21:14 Lorazepam (Ativan 2mg/ml 1ml) 0.5 mg Q4H PRN IV For Anxiety 09/18/17 19:30 09/25/17 19:29 Morphine Sulfate (Morphine Sulfate) 1 mg EVERY 4 HOURS PRN IVP For Pain 7-10 09/18/17 19:30 09/25/17 19:29 Nitroglycerin (Ntg) 0.4 mg Q5M X 3 DOSES PRN SL Prn Chest Pain 09/18/17 19:30 10/18/17 19:29 Ondansetron HCl (Zofran) 4 mg Q6H PRN IVP Nausea & Vomiting 09/18/17 19:30 10/18/17 19:29 Polyethylene Glycol (Miralax) 17 gm HSPRN PRN ORAL Constipation 09/18/17 19:30 10/18/17 19:29 Sodium Chloride 1,000 ml @ 75 mls/hr [id number] IV 09/19/17 12:00 10/19/17 11:59 09/19/17 12:58 Temazepam (Restoril) 15 mg HSPRN PRN ORAL Insomnia 09/18/17 19:30 09/25/17 19:29 Assessment/Plan Status: stable Assessment/Plan mdd anxiety d/o dementia remeron 5mg qhs Lorena Menchaca M.D. Sep 19, 2017 23:27
[2017-09-20] VITALS: BP 131/68
[2017-09-20 04:00] VITALS: BP 121/65
[2017-09-20 08:00] VITALS: BP 129/73
[2017-09-20] MEDS: Donepezil 5mg Tab ORAL SCH (08:18)
[2017-09-20] MEDS: Heparin 5000 units/ml inj SUBQ SCH (08:20)
[2017-09-20 12:00] VITALS: BP 113/59
--- NOTE | 2017-09-20 12:22 | Pulmonology Progress Note ---
Assessment/Plan Problems: (1) Acute encephalopathy (2) Syncope (3) Breast cancer (4) Depression Assessment/Plan asymptoamtic telemetry reviewed PT noted reviewed echo reviewed pt feeling better, asymptomatic dc home with HH today Subjective ROS Limited/Unobtainable: No Allergies: Uncoded Allergies: "ANTIBIOTICS" (Allergy, Unknown, 09/18/17) Objective Last 24 Hour Vital Signs Date Time Temp Pulse Resp B/P (MAP) Pulse Ox O2 Delivery O2 Flow Rate FiO2 09/20/17 08:10 86 09/20/17 08:05 79 09/20/17 08:00 98.0 94 20 129/73 99 Room Air 98.0 09/20/17 08:00 77 09/20/17 08:00 73 09/20/17 07:45 111 16 Room Air 21 09/20/17 04:00 73 09/20/17 04:00 98.0 82 16 121/65 90 98.0 09/20/17 00:00 97 09/20/17 00:00 97.7 74 16 131/68 97 Room Air 21 97.7 09/19/17 20:00 83 09/19/17 20:00 97.9 74 16 130/72 97 Room Air 21 97.9 09/19/17 19:08 77 16 Room Air 21 09/19/17 16:00 97.6 92 18 143/70 97 Room Air 21 97.6 09/19/17 16:00 93 Intake and Output 09/19/17 09/20/17 19:00 07:00 Intake Total 1410 ml Balance 1410 ml IV Total 450 ml Other 960 ml # Voids 4 2 Objective General Appearance: WD/WN, no acute distress HEENT: atraumatic Respiratory/Chest: normal breath sounds Abdomen: normal bowel sounds, soft, non tender Extremities: no cyanosis Skin: no ulcers Neurologic/Psychiatric: art preparator II-XII grossly normal, no motor/sensory deficits Laboratory Tests 09/19/17 14:15: Troponin I 0.003 Current Medications Medications (Trade) Dose Ordered Sig/Michael Route PRN Reason Start Time Stop Time Status Last Admin Dose Admin Acetaminophen (Tylenol) 650 mg Q4H PRN ORAL Mild Pain/Temp > 100.5 09/19/17 03:30 10/18/17 19:29 Al Hydroxide/Mg Hydroxide (Mylanta II) 30 ml Q6H PRN ORAL dyspepsia 09/18/17 19:30 10/18/17 19:29 Albuterol/ Ipratropium (Albuterol/ Ipratropium) 3 ml EVERY 4 HOURS PRN HHN Shortness of Breath 09/18/17 19:30 09/23/17 19:29 Clonidine HCl (Catapres Tab) 0.1 mg Q4H PRN ORAL For High Blood Pressure 09/18/17 19:30 10/18/17 19:29 Dextrose (Dextrose 50%) 25 ml STAT PRN IV Hypoglycemia 09/18/17 19:30 10/18/17 19:29 Dextrose (Dextrose 50%) 50 ml STAT PRN IV Hypoglycemia 09/18/17 19:30 10/18/17 19:29 Donepezil HCl (Aricept) 5 mg DAILY ORAL 09/19/17 09:00 10/19/17 08:59 09/20/17 08:18 Heparin Sodium (Porcine) (Heparin 5000 units/ml) 5,000 units EVERY 12 HOURS SUBQ 09/18/17 21:00 10/18/17 20:59 09/20/17 08:20 Lorazepam (Ativan 2mg/ml 1ml) 0.5 mg Q4H PRN IV For Anxiety 09/18/17 19:30 09/25/17 19:29 Mirtazapine (Remeron) 15 mg BEDTIME ORAL 09/20/17 21:00 10/20/17 20:59 Morphine Sulfate (Morphine Sulfate) 1 mg EVERY 4 HOURS PRN IVP For Pain 7-10 09/18/17 19:30 09/25/17 19:29 Nitroglycerin (Ntg) 0.4 mg Q5M X 3 DOSES PRN SL Prn Chest Pain 09/18/17 19:30 10/18/17 19:29 Ondansetron HCl (Zofran) 4 mg Q6H PRN IVP Nausea & Vomiting 09/18/17 19:30 10/18/17 19:29 Polyethylene Glycol (Miralax) 17 gm HSPRN PRN ORAL Constipation 09/18/17 19:30 10/18/17 19:29 Sodium Chloride 1,000 ml @ 75 mls/hr [id number] IV 09/19/17 12:00 5/24/18 11:59 09/20/17 01:36 Temazepam (Restoril) 15 mg HSPRN PRN ORAL Insomnia 09/18/17 19:30 09/25/17 19:29 Maryse Estes MD Sep 20, 2017 12:22
--- NOTE | 2017-09-21 14:40 | General Progress Note ---
Assessment/Plan Status: stable, progressing Assessment/Plan mdd anxiety d/o dementia remeron 5mg qhs aricept Subjective Date patient seen: Sep 20, 2017 Allergies: Uncoded Allergies: "ANTIBIOTICS" (Allergy, Unknown, 09/18/17) Subjective this is the late entry the pt was seen on 09/20 Objective Height (Feet): 5 Height (Inches): 4.00 Weight (Pounds): 97 General Appearance: WD/WN, no apparent distress, alert Lorena Calvillo M.D. Sep 21, 2017 14:40
--- NOTE | 2017-09-21 17:02 | Discharge Summary ---
Discharge Summary Discharge Summary Discharge Summary DATE OF ADMISSION: 09/18/2017 DATE OF DISCHARGE: 09/20/2017 CONSULTANTS: Dr. Lorena Arriaza BRIEF HOSPITAL COURSE: Patient is a 77-year-old female with history of depression, breast CA status post resection and chemotherapy, was brought in by ambulance from a bus stop where patient had a syncopal episode however denied loss of consciousness. She fell on her buttocks, denied any injury or trauma. On evaluation at ED, EKG was in normal sinus rhythm. Chest x-ray showed no acute disease. MRI of the brain showed no acute disease. She was admitted for syncope and acute encephalopathy. She underwent cardiac evaluation. She denied chest pain pressure or tightness in the chest. Electrocardiogram with nonspecific T-wave changes, telemetry was unremarkable. Echocardiogram showed ejection fraction 50-55%. There was mild left ventricular hypertrophy, no evidence of pericardial effusion, mild aortic regurgitation, mild mitral vegetation. Carotid duplex showed no significant plaque in the common carotid artery. There was minimal degree of stenosis in the right internal carotid and minimal stenosis in the external carotid artery on the right; there was minimal stenosis on the internal carotid and external carotid on the left. Vertebral arteries were patent. Cholesterol panel was checked. Patient had been anxious and has dementia. She was continued on Remeron and Aricept. She was feeling better and was asymptomatic. She was given physical therapy. She was eventually discharged home with home health. FINAL DIAGNOSES: Acute encephalopathy resolved Syncope Major depressive disorder Anxiety disorder Dementia History of breast CA DISPOSITION: Patient was discharged home with home health DISCHARGE MEDICATIONS: Refer to Discharge Medication List. DISCHARGE INSTRUCTIONS: Follow up with PCP in a week. I have been assigned to dictate discharge summary on this account, and I was not involved in the patient's management. Kassi Motley NP Sep 21, 2017 17:02
== END 2017-09-20 13:45 | disposition home or self-care (01) | DRG 72 ==
LOC: EDBD 14:10 → EMR 16:15 → OBSVTOIN 18:12 → 2E 18:12 → EDBEDREQ 18:58
DX: G93.40 Encephalopathy, unspecified (principal); R55 Syncope and collapse; R19.7 Diarrhea, unspecified; Z85.3 Personal history of malignant neoplasm of breast; M81.0 Age-related osteoporosis without current pathological fracture; F32.9 Major depressive disorder, single episode, unspecified; E78.5 Hyperlipidemia, unspecified; F41.9 Anxiety disorder, unspecified; F03.90 Unspecified dementia, unspecified severity, without behavioral disturbance, psychotic disturbance, mood disturbance, and anxiety; I10 Essential (primary) hypertension; Z91.81 History of falling; Z88.1 Allergy status to other antibiotic agents
CPT/HCPCS: 36415; 70551; 71045; 80053; 80061; 81003; 82550; 82553; 83690; 84443; 84484; 85025; 85610; 85730; 93005; 93306; 93880; 94664; 99285; J8499

== ENCOUNTER 2017-11-01 21:13 | Emergency (ER) | payer MEDICARE, MEDICAID ==
[~2017-11-01] VITALS: Ht 152.4 cm; Wt 47.6 kg
--- NOTE | 2017-11-01 21:12 | Emergency Room Report ---
History of Present Illness Present Illness HPI Patient is a 78 year-old female who presented by EMS after increased dizziness for approximately one week. Patient prior history dementia as well as depression. She reports having increased dizziness. The patient states she lives by herself. She went to her relatives house ambulate. The patient was noted to have elevated blood pressure and was subsequently transported to the hospital. The patient does not remember what the blood pressure was. Allergies: Coded Allergies: PENICILLINS (Unverified Allergy, Unknown, 11/01/17) Uncoded Allergies: "ANTIBIOTICS" (Allergy, Unknown, 09/18/17) Patient History Past Medical History: see triage record Reviewed Nursing Documentation: PMH: Agreed; PSxH: Agreed Review of Systems All Other Systems: negative except mentioned in HPI Physical Exam Sp02 EP Interpretation: reviewed, normal General Appearance: normal inspection, well appearing, no apparent distress, alert, GCS 15, Chronically Ill Head: atraumatic ENT: normal ENT inspection, hearing grossly normal, normal voice Neck: normal inspection, full range of motion, supple, no bony tend Respiratory: normal inspection, lungs clear, normal breath sounds, no respiratory distress, no retraction, no wheezing Cardiovascular #1: regular rate, rhythm, no edema Gastrointestinal: normal inspection, normal bowel sounds, non tender, soft, no guarding, no hernia Genitourinary: no CVA tenderness Musculoskeletal: normal inspection, back normal, normal range of motion Neurologic: normal inspection, alert, oriented x3, responsive, tax accounting manager III-XII nml as tested, speech normal Psychiatric: normal inspection, judgement/insight normal, mood/affect normal Skin: normal inspection, normal color, no rash Medical Decision Making Diagnostic Impression: Primary Impression: Hypothyroid ER Course The patient presented for dizziness. Differential diagnosis included but not limited to urinary tract infection, anemia, arrhythmia, abdominal aortic aneurysm, CVA, subarachnoid hemorrhage, benign positional vertigo.Because of complexity of patient's case laboratory testing and imaging studies were ordered.The laboratory testing was notable for mildly elevated TSH. On previous blood draws had been normal. The patient does not appear to be in any acute distress. EKG interpreted by me showed normal sinus rhythm with a rate of [address] or T wave changes.The patient is advised to follow up with primary care doctor in 1-2 days. Patient is advised to return if any worsening condition or if any changes in status that are concerning. This report is dictated with [employer] rebar bender software which may occasionally lead to discrepancies related to use of this software. Labs Test 11/01/17 21:40 11/01/17 21:45 Urine Color Pale yellow Urine Appearance Clear Urine pH 8 (4.5-8.0) Urine Specific Avery 1.010 (1.005-1.035) Urine Protein Negative (NEGATIVE) Urine Glucose (UA) Negative (NEGATIVE) Urine Ketones Negative (NEGATIVE) Urine Occult Blood 2+ (NEGATIVE) Urine Nitrite Negative (NEGATIVE) Urine Bilirubin Negative (NEGATIVE) Urine Urobilinogen Normal MG/DL (0.0-1.0) Urine Leukocyte Esterase Negative (NEGATIVE) Urine RBC 0-2 /HPF (0 - 2) Urine WBC 0 /HPF (0 - 2) Urine Squamous Epithelial Cells Occasional /LPF Urine Bacteria None /HPF (NONE) White Blood Count 8.0 K/UL (4.8-10.8) Red Blood Count 4.51 M/UL (4.20-5.40) Hemoglobin 13.1 G/DL (12.0-16.0) Hematocrit 38.0 % (37.0-47.0) Mean Corpuscular Volume 84 FL (80-99) Mean Corpuscular Hemoglobin 28.9 PG (27.0-31.0) Mean Corpuscular Hemoglobin Concent 34.4 G/DL (32.0-36.0) Red Cell Distribution Width 11.2 % (11.6-14.8) Platelet Count 180 K/UL (150-450) Mean Platelet Volume 5.7 FL (6.5-10.1) Neutrophils (%) (Auto) 46.3 % (45.0-75.0) Lymphocytes (%) (Auto) 35.4 % (20.0-45.0) Monocytes (%) (Auto) 7.9 % (1.0-10.0) Eosinophils (%) (Auto) 8.6 % (0.0-3.0) Basophils (%) (Auto) 1.7 % (0.0-2.0) Erythrocyte Sedimentation Rate 27 MM/HR (0-30) Sodium Level 136 MMOL/L (136-145) Potassium Level 3.7 MMOL/L (3.5-5.1) Chloride Level 98 MMOL/L (98-107) Carbon Dioxide Level 29 MMOL/L (21-32) Anion Gap 9 mmol/L (5-15) Blood Urea Nitrogen 14 mg/dL (7-18) Creatinine 0.8 MG/DL (0.55-1.30) Estimat Glomerular Filtration Rate mL/min (>60) Glucose Level 142 MG/DL (74-106) Calcium Level 9.7 MG/DL (8.5-10.1) Total Bilirubin 0.3 MG/DL (0.2-1.0) Aspartate Amino Transf (AST/SGOT) 34 U/L (15-37) Alanine Aminotransferase (ALT/SGPT) 32 U/L (12-78) Alkaline Phosphatase 75 U/L (46-116) Pro-B-Type Natriuretic Peptide 181 pg/mL (0-125) Total Protein 7.9 G/DL (6.4-8.2) Albumin 4.0 G/DL (3.4-5.0) Globulin 3.9 g/dL Albumin/Globulin Ratio 1.0 (1.0-2.7) Thyroid Stimulating Hormone (TSH) 3.766 uiU/mL (0.358-3.740) EKG Diagnostic Results Rate: normal Rhythm: NSR ST Segments: no acute changes ASA given to the pt in ED: No Status: improved Disposition: HOME, SELF-CARE Condition: Stable Scripts Levothyroxine Sodium* (SYNTHROID*) 25 Mcg Tablet 25 MCG ORAL DAILY, #14 TAB Take in the morning on an empty stomach, at least 30 minutes before food. Prov: Terrell Harrison MD 11/01/17 Terrell Harrison MD Nov 01, 2017 21:12
[~2017-11-01 21:13] MED LIST: ALENDRONATE SOD70 MG PO; D3 DOTS2000 UNI1 PO; DONEPEZIL HCL5 M2 ORAL; FOLIC ACID1 MG ORAL; MIRTAZAPINE15 M3 PO; RANITIDINE HCL150 MG ORAL
[2017-11-01 21:30] VITALS: BP 140/72
[2017-11-01] MEDS ORDERED: Meclizine 25mg tab ORAL ONE (21:30)
[2017-11-01] MEDS ORDERED: Thiamine HCl 100 MG in D5W 55 ML IVPB ONE (21:30)
[2017-11-01 21:52] LABS: APPEARANCE,URINE CLEAR; BILIRUBIN, URINE NEGATIVE (NEGATIVE); COLOR,URINE PALE YELLOW; GLUCOSE, URINE (UA) NEGATIVE (NEGATIVE); KETONES,URINE NEGATIVE (NEGATIVE); LEUKOCYTE ESTERASE ,URINE NEGATIVE (NEGATIVE); NITRITE,URINE NEGATIVE (NEGATIVE); PH,URINE 8 (4.5-8.0); PROTEIN,URINE NEGATIVE (NEGATIVE); UROBILINOGEN,URINE NORMAL MG/DL (0.0-1.0)
[2017-11-01 21:55] LABS: BASOPHILS % (AUTO) 1.7 % (0.0-2.0); EOSINOPHILS % (AUTO) 8.6 % (0.0-3.0); HEMOGLOBIN 13.1 G/DL (12.0-16.0); LYMPHOCYTES % (AUTO) 35.4 % (20.0-45.0); MEAN CORPUSCULAR VOLUME 84 FL (80-99); MONOCYTES % (AUTO) 7.9 % (1.0-10.0); NEUTROPHILS % (AUTO) 46.3 % (45.0-75.0); PLATELET COUNT 180 K/UL (150-450); RED BLOOD COUNT 4.51 M/UL (4.20-5.40); RED CELL DISTRIBUTION WIDTH 11.2 % (11.6-14.8)
[2017-11-01] MEDS ORDERED: Meclizine 25mg tab ONE (22:00)
[2017-11-01] MEDS ORDERED: Thiamine HCl 100mg/ml 2 ml Inj ONE (22:00)
[2017-11-01 22:06] LABS: ANION GAP 9 mmol/L (5-15); BLOOD UREA NITROGEN 14 mg/dL (7-18); CALCIUM 9.7 MG/DL (8.5-10.1); CARBON DIOXIDE 29 MMOL/L (21-32); CHLORIDE 98 MMOL/L (98-107); CREATININE 0.8 MG/DL (0.55-1.30); POTASSIUM 3.7 MMOL/L (3.5-5.1); SODIUM 136 MMOL/L (136-145)
[2017-11-01 22:18] LABS: ALANINE AMINOTRANSFERASE 32 U/L (12-78); ALKALINE PHOSPHATASE 75 U/L (46-116); ASPARTATE AMINO TRANSFERASE 34 U/L (15-37); BILIRUBIN,TOTAL 0.3 MG/DL (0.2-1.0)
[2017-11-01 22:30] VITALS: BP 139/68
[2017-11-01] MEDS ORDERED: SYNTHROID25 MCG ORAL (22:52)
[2017-11-01 23:05] VITALS: BP 140/72
--- NOTE | 2017-11-02 09:14 | Diagnostic Imaging Report ---
Indication: Syncope times one day Technique: Continuous helical CT scanning of the head was performed without intravenous contrast material. Axial and coronal 5 mm sections were generated. Radiation dose was minimized using automated exposure control Dose: Total Dose Length Product - DLP 1295.[address] Dose Index - CTDIvol(s) 70.38 mGy. Comparison: none Findings: The ventricular system is normal in size and configuration for age. There is no shift of midline structures. No abnormal extra-axial fluid collections are noted. There is no evidence of intracerebral bleeding. No other abnormal high or low density areas are noted within the brain. Impression: Normal CT scan of the head without contrast material. This agrees with the preliminary interpretation provided overnight by [facility] teleradiology service. The CT scanner at [facility] is accredited by the [employer] and the scans are performed using protocols designed to limit radiation exposure to as low as reasonably achievable to attain images of sufficient resolution adequate for diagnostic evaluation. Noncontrast
--- NOTE | 2017-11-03 12:34 | Cardiology Report ---
APPROVED REPORT EKG Measurement Heart [id number] Normal sinus rhythm Minimal voltage criteria for LVH, may be normal variant Borderline ECG
== END 2017-11-01 23:05 | disposition home or self-care (01) ==
LOC: EDBD 21:13 → EMR 21:42
DX: E03.9 Hypothyroidism, unspecified (principal); Z88.0 Allergy status to penicillin; R55 Syncope and collapse
CPT/HCPCS: 36415; 70450; 80053; 81001; 83880; 84443; 85025; 85651; 93005; 96360; 96365; 96374; 96375; 99283; 99284

== ENCOUNTER 2018-11-20 19:57 | Inpatient (IN) | payer OTHER, MEDICAID ==
[~2018-11-20] VITALS: Ht 152.4 cm; Wt 46.7 kg
[~2018-11-20 19:57] MED LIST changes: +SYNTHROID25 MCG ORAL
[2018-11-20 20:00] VITALS: BP 145/88
--- NOTE | 2018-11-20 20:00 | NUR ---
ED Nurse Note: Pt BIBA from home c/o dizziness that started this afternoon, pt was crying during ambulance ride. PT appears anxious. VSS Pt A&Ox4. Daughters and bedside
[2018-11-20] MEDS ORDERED: Meclizine 25mg tab ORAL ONE (20:15)
[2018-11-20] MEDS ORDERED: Metoclopramide 10mg/2ml Inj IVP ONE (20:15)
[2018-11-20 20:35] LABS: APPEARANCE,URINE CLEAR; BILIRUBIN, URINE NEGATIVE (NEGATIVE); COLOR,URINE PALE YELLOW; GLUCOSE, URINE (UA) NEGATIVE (NEGATIVE); KETONES,URINE NEGATIVE (NEGATIVE); LEUKOCYTE ESTERASE ,URINE NEGATIVE (NEGATIVE); NITRITE,URINE NEGATIVE (NEGATIVE); PH,URINE 8 (4.5-8.0); PROTEIN,URINE NEGATIVE (NEGATIVE); UROBILINOGEN,URINE NORMAL MG/DL (0.0-1.0)
[2018-11-20] MEDS ORDERED: ARICEPT5 MG ORAL (20:57)
[2018-11-20 21:30] LABS: BASOPHILS % (AUTO) 1.1 % (0.0-2.0); EOSINOPHILS % (AUTO) 4.8 % (0.0-3.0); HEMATOCRIT 37.8 % (37.0-47.0); HEMOGLOBIN 12.8 G/DL (12.0-16.0); LYMPHOCYTES % (AUTO) 27.3 % (20.0-45.0); MEAN CORPUSCULAR VOLUME 85 FL (80-99); MONOCYTES % (AUTO) 7.1 % (1.0-10.0); NEUTROPHILS % (AUTO) 59.8 % (45.0-75.0); PLATELET COUNT 346 K/UL (150-450); RED BLOOD COUNT 4.42 M/UL (4.20-5.40); RED CELL DISTRIBUTION WIDTH 10.5 % (11.6-14.8); WHITE BLOOD COUNT 9.4 K/UL (4.8-10.8)
[2018-11-20 21:41] LABS: ANION GAP 13 mmol/L (5-15); BLOOD UREA NITROGEN 14 mg/dL (7-18); CALCIUM 9.4 MG/DL (8.5-10.1); CARBON DIOXIDE 25 MMOL/L (21-32); CHLORIDE 98 MMOL/L (98-107); CREATININE 0.8 MG/DL (0.55-1.30); POTASSIUM 4.4 MMOL/L (3.5-5.1); SODIUM 135 MMOL/L (136-145)
[2018-11-20 21:55] LABS: ALANINE AMINOTRANSFERASE 24 U/L (12-78); ALBUMIN 4.1 G/DL (3.4-5.0); ALBUMIN/GLOBULIN RATIO 1.2 (1.0-2.7); ALKALINE PHOSPHATASE 82 U/L (46-116); ASPARTATE AMINO TRANSFERASE 52 U/L (15-37); BILIRUBIN,TOTAL 0.5 MG/DL (0.2-1.0); CKMB 1.3 NG/ML (0.0-3.6); CREATINE KINASE 246 U/L (26-308)
--- NOTE | 2018-11-20 21:57 | Emergency Room Report ---
History of Present Illness General Chief Complaint: Dizziness Source: Patient (Nelson Hutchins MD) Present Illness HPI 78-year-old female presents ED for evaluation. Patient brought in by EMS from home complaining of dizziness today. States that she nearly passed out. States she feels weak. Denies chest pain or shortness of breath. Denies fevers or chills. No other aggravating relieving factors. Denies any other associated symptoms (Nelson Hutchins MD) Allergies: Coded Allergies: PENICILLINS (Unverified Allergy, Unknown, 11/01/17) Uncoded Allergies: "ANTIBIOTICS" (Allergy, Unknown, 09/18/17) Patient History Past Medical History: HTN Past Surgical History: none Pertinent Family History: none Social History: Denies: smoking, alcohol use, drug use Now: No Immunizations: UTD Reviewed Nursing Documentation: PMH: Agreed; PSxH: Agreed (Nelson Hutchins MD) Nursing Documentation-PMH Hx Hypertension: Yes Hx Cancer: Yes Hx Gastrointestinal Problems: No Hx Neurological Problems: Yes Hx Memory Loss: Yes Hx Syncope: Yes (Nelson Hutchins MD) Review of Systems All Other Systems: negative except mentioned in HPI (Nelson Hutchins MD) Physical Exam Vital Signs Date Time Temp Pulse Resp B/P (MAP) Pulse Ox O2 Delivery O2 Flow Rate FiO2 11/20/18 19:53 96.4 88 16 154/87 (109) 98 11/20/18 20:00 Room Air Sp02 EP Interpretation: reviewed, normal General Appearance: no apparent distress, alert, GCS 15, non-toxic Head: normocephalic, atraumatic Eyes: bilateral eye normal inspection, bilateral eye PERRL ENT: hearing grossly normal, normal pharynx, no angioedema, normal voice Neck: full range of motion, supple/symm/no masses Respiratory: chest non-tender, lungs clear, normal breath sounds, speaking full sentences Cardiovascular #1: regular rate, rhythm, no edema Cardiovascular #2: 2+ carotid (R), 2+ carotid (L), 2+ radial (R), 2+ radial (L) , 2+ dorsalis pedis (R), 2+ dorsalis pedis (L) Gastrointestinal: normal bowel sounds, non tender, soft, non-distended, no guarding, no rebound Rectal: deferred Genitourinary: normal inspection, no CVA tenderness Musculoskeletal: back normal, gait/station normal, normal range of motion, non- tender Neurologic: alert, oriented x3, responsive, motor strength/tone normal, sensory intact, speech normal Psychiatric: judgement/insight normal, memory normal, mood/affect normal, no suicidal/homicidal ideation Reflexes: 3+ bicep (R), 3+ bicep (L), 3+ tricep (R), 3+ tricep (L), 3+ knee (R) , 3+ knee (L) Skin: normal color, no rash, warm/dry, well hydrated Lymphatic: no adenopathy (Nelson Hutchins MD) Medical Decision Making Medicare Attestation The history of Latonia Riggs has been reviewed and management options for her have been examined and discussed by Nelson Hutchins. I have personally examined and interviewed the patient. (Nelson Hutchins MD) Diagnostic Impression: Primary Impression: Syncope Qualified Codes: R55 - Syncope and collapse Additional Impression: Dizziness Labs Test 11/20/18 20:00 11/20/18 21:15 Urine Color Pale yellow Urine Appearance Clear Urine pH 8 (4.5-8.0) Urine Specific [place] 1.010 (1.005-1.035) Urine Protein Negative (NEGATIVE) Urine Glucose (UA) Negative (NEGATIVE) Urine Ketones Negative (NEGATIVE) Urine Blood 2+ (NEGATIVE) Urine Nitrite Negative (NEGATIVE) Urine Bilirubin Negative (NEGATIVE) Urine Urobilinogen Normal MG/DL (0.0-1.0) Urine Leukocyte Esterase Negative (NEGATIVE) Urine RBC 0-2 /HPF (0 - 2) Urine WBC 0 /HPF (0 - 2) Urine Squamous Epithelial Cells Occasional /LPF Urine Bacteria None /HPF (NONE) White Blood Count 9.4 K/UL (4.8-10.8) Red Blood Count 4.42 M/UL (4.20-5.40) Hemoglobin 12.8 G/DL (12.0-16.0) Hematocrit 37.8 % (37.0-47.0) Mean Corpuscular Volume 85 FL (80-99) Mean Corpuscular Hemoglobin 28.8 PG (27.0-31.0) Mean Corpuscular Hemoglobin Concent 33.8 G/DL (32.0-36.0) Red Cell Distribution Width 10.5 % (11.6-14.8) Platelet Count 346 K/UL (150-450) Mean Platelet Volume 5.0 FL (6.5-10.1) Neutrophils (%) (Auto) 59.8 % (45.0-75.0) Lymphocytes (%) (Auto) 27.3 % (20.0-45.0) Monocytes (%) (Auto) 7.1 % (1.0-10.0) Eosinophils (%) (Auto) 4.8 % (0.0-3.0) Basophils (%) (Auto) 1.1 % (0.0-2.0) Sodium Level 135 MMOL/L (136-145) Potassium Level 4.4 MMOL/L (3.5-5.1) Chloride Level 98 MMOL/L (98-107) Carbon Dioxide Level 25 MMOL/L (21-32) Anion Gap 13 mmol/L (5-15) Blood Urea Nitrogen 14 mg/dL (7-18) Creatinine 0.8 MG/DL (0.55-1.30) Estimat Glomerular Filtration Rate mL/min (>60) Glucose Level 122 MG/DL (74-106) Calcium Level 9.4 MG/DL (8.5-10.1) Troponin I 0.000 ng/mL (0.000-0.056) (Nelson Hutchins MD) ER Course Patient presents with dizziness and near syncope. She signed out to me. Labs unremarkable. Urine negative for infection. She felt better now. Because of her age and medical problems, we will place her in telemetry observation. She is approved for admission here. I discussed the case with Dr. Ya. (Ho Dennis MD) EKG Diagnostic Results Rate: normal Rhythm: NSR ST Segments: no acute changes ASA given to the pt in ED: No (Nelson Hutchins MD) Rhythm Strip Diag. Results EP Interpretation: yes Rhythm: NSR, no PVC's, no ectopy (Nelson Hutchins MD) Chest X-Ray Diagnostic Results Chest X-Ray Diagnostic Results : Chest X-Ray Ordered: Yes # of Views/Limited/Complete: 1 View Indication: Other EP Interpretation: Yes Interpretation: no consolidation, no effusion, no pneumothorax, no acute cardiopulmonary disease Impression: No acute disease Electronically Signed by: Electronically signed by Nelson Hutchins MD (Nelson Hutchins MD) CT/MRI/US Diagnostic Results CT/MRI/US Diagnostic Results : Imaging Test Ordered: CT Head Impression no acute process (Nelson Hutchins MD) Last Vital Signs Date Time Temp Pulse Resp B/P (MAP) Pulse Ox O2 Delivery O2 Flow Rate FiO2 11/20/18 20:00 98.4 80 16 145/88 98 Room Air Status: improved (Nelson Hutchins MD) Status: improved (Ho Dennis MD) Disposition: PLACE IN OBSERVATION Condition: Serious Referrals: NOT CHOSEN IPA/,REFERRING (PCP) Nelson Hutchins MD Nov 20, 2018 21:57 Ho Dennis MD Nov 20, 2018 22:40
[2018-11-20 22:00] VITALS: BP 133/78
[2018-11-20 23:30] VITALS: BP 145/65
[2018-11-20] MEDS ORDERED: Acetaminophen 500mg (ES) tab ORAL PRN (23:30)
--- NOTE | 2018-11-20 23:30 | NUR ---
TRANSFER TO FLOOR: Patient transferred to as ordered, per Dr Parekh. Report given to KATHLEEN Lugo. Belongings and medications given to . Family and or S/O informed of transfer.
--- NOTE | 2018-11-20 23:31 | NUR ---
NURSE NOTES: Received pt from ED via gurney. Pt is being admitted for dizziness. Pt is awake, AOx4. In no acute distress. VS stable. Placed on engine monitor. Oriented pt to room and unit. Bed in lowest position, call light within reach. Admission orders received and carried out.
[2018-11-21] MEDS ORDERED: ATORVASTATIN CA20 MG ORAL (01:46)
[2018-11-21] MEDS ORDERED: amoxicillin (01:46)
[2018-11-21] MEDS ORDERED: IBUPROFEN600 MG ORAL (01:46)
[2018-11-21 04:00] VITALS: BP 120/50
--- NOTE | 2018-11-21 07:22 | NUR ---
HAND-OFF: Report given to KATHLEEN Parks.
--- NOTE | 2018-11-21 07:28 | NUR ---
NURSE NOTES: Received bedside report from Parish WANG. Pt. in bed, awake, a/o x 4. No sign of distress. Denies pain at present. IV at left hand #22g. in placed S.L. Bed in low position, locked. Call light within reach. Will cont. to monitor.
[2018-11-21 08:00] VITALS: BP 113/49
[2018-11-21 08:54] LABS: BASOPHILS % (AUTO) 1.1 % (0.0-2.0); EOSINOPHILS % (AUTO) 10.9 % (0.0-3.0); HEMATOCRIT 38.1 % (37.0-47.0); HEMOGLOBIN 12.8 G/DL (12.0-16.0); LYMPHOCYTES % (AUTO) 30.7 % (20.0-45.0); MEAN CORPUSCULAR VOLUME 85 FL (80-99); MONOCYTES % (AUTO) 7.4 % (1.0-10.0); NEUTROPHILS % (AUTO) 49.9 % (45.0-75.0); PLATELET COUNT 297 K/UL (150-450); RED BLOOD COUNT 4.49 M/UL (4.20-5.40); RED CELL DISTRIBUTION WIDTH 11.2 % (11.6-14.8); WHITE BLOOD COUNT 5.6 K/UL (4.8-10.8)
[2018-11-21 09:19] LABS: ALANINE AMINOTRANSFERASE 22 U/L (12-78); ALBUMIN 3.9 G/DL (3.4-5.0); ALBUMIN/GLOBULIN RATIO 1.3 (1.0-2.7); ALKALINE PHOSPHATASE 79 U/L (46-116); ANION GAP 10 mmol/L (5-15); ASPARTATE AMINO TRANSFERASE 20 U/L (15-37); BILIRUBIN,TOTAL 0.6 MG/DL (0.2-1.0); BLOOD UREA NITROGEN 11 mg/dL (7-18); CALCIUM 8.7 MG/DL (8.5-10.1); CARBON DIOXIDE 26 MMOL/L (21-32); CHLORIDE 104 MMOL/L (98-107); CREATININE 0.8 MG/DL (0.55-1.30); POTASSIUM 3.1 MMOL/L (3.5-5.1); SODIUM 140 MMOL/L (136-145)
--- NOTE | 2018-11-21 10:33 | Diagnostic Imaging Report ---
Indication: Headache Technique: Contiguous 5 mm thick transaxial imaging of the head obtained in a Siemens Sensation [address] scanner. Soft tissue and bone windows generated. Automatic Exposure Control was utilized. Total Dose length Product (DLP): 1333.[address] Dose Index Volume (CTDIvol): 70.38 mGy Comparison: 11/01/2017 Findings: There is mild prominence of the ventricles, basal cisterns, and cerebral sulci consistent with atrophy. Mild, nonspecific, white matter hypoattenuation is noted throughout the brain consistent with chronic small vessel disease. There is no midline shift, edema, acute hemorrhage, mass effect, or abnormal extra-axial fluid collections. Bones are unremarkable. Impression: No acute intracranial bleed, mass effect or edema. Mild atrophy of the brain. Nonspecific white matter hypoattenuation probably due to chronic small vessel disease. [facility] has communicated the preliminary results to the Emergency Department. Their findings are largely concordant with this report. The CT scanner at [facility] is accredited by the [employer] and the scans are performed using dose optimization techniques as appropriate to a performed exam including Automatic Exposure control.
[2018-11-21 12:00] VITALS: BP 118/57
--- NOTE | 2018-11-21 12:23 | Diagnostic Imaging Report ---
Indication: Dyspnea Comparison: 09/18/2017 A single view chest radiograph was obtained. Findings: Cardiomediastinal appearance is within normal limits for age. The lungs are clear. Pulmonary vascularity is appropriate. The diaphragmatic contour is smooth and costophrenic angles are sharp. No pleural effusions are identified. The bones are osteopenic. Surgical clips noted in the left axilla. Impression: No acute findings
--- NOTE | 2018-11-21 12:54 | NUR ---
*-* INSURANCE *-* ALL CLINICALS HAVE BEEN FAXED TO: [facility] NCM: NONE AT THIS TIME PLEASE FAX THE REVIEW/CLINICAL COORD: JOSH GAXIOLA P- [phone] FX: [phone].(PROVIDED BY [facility]) FX: [phone]...REVIEW/CLINICAL
--- NOTE | 2018-11-21 13:12 | NUR ---
CASE MANAGEMENT:REVIEW 78 YR OLD FEMALE BIBA FROM HOME CC: DIZZINESS SI:DIZZINESS 96.4 88 16 154/87 98% ON RA GLUCOSE+122 IS: MECLIZINE PO IV REGLAN 1L NS BOLUS CT HEAD CHEST XRAY : TELEMETRY STATUS PLAN: NEURO CHECKS Q4HRS
--- NOTE | 2018-11-21 15:54 | Consultation ---
History of Present Illness General Date patient seen: Nov 21, 2018 Chief Complaint: Dizziness Referring physician: Dr. Benton Present Illness Allergies: Coded Allergies: PENICILLINS (Unverified Allergy, Unknown, 11/01/17) Uncoded Allergies: "ANTIBIOTICS" (Allergy, Unknown, 09/18/17) Medication History Scheduled Alendronate Sodium* (Fosamax*), 70 MG PO QWEEK, (Reported) Atorvastatin Calcium* (Atorvastatin Calcium*), 10 MG ORAL BEDTIME, (Reported) Cholecalciferol (Vitamin D3) (D3 Dots), 100 UNIT PO DAILY, (Reported) Donepezil Hcl* (Donepezil Hcl*), 5 MG ORAL DAILY, (Reported) Donepezil Hcl* (Aricept*), 5 MG ORAL DAILY, (Reported) Folic Acid* (Folic Acid*), 1 MG ORAL DAILY, (Reported) Levothyroxine Sodium* (Synthroid*), 25 MCG ORAL DAILY Mirtazapine* (Mirtazapine*), 15 MG PO DAILY, (Reported) Ranitidine Hcl* (Zantac*), 150 MG ORAL TWICE A DAY, (Reported) [amoxicillin], 500 MG Q8HR, (Reported) Scheduled PRN Ibuprofen* (Motrin*), 600 MG ORAL Q4HR PRN for For Pain, (Reported) Patient History Healthcare decision maker Resuscitation status Full Code Advanced Directive on File Physical Exam Last 24 Hour Vital Signs Date Time Temp Pulse Resp B/P (MAP) Pulse Ox O2 Delivery O2 Flow Rate FiO2 11/21/18 12:00 98.1 88 20 118/57 (77) 98 11/21/18 09:00 Room Air 11/21/18 08:00 98.4 72 18 113/49 (70) 97 11/21/18 07:53 73 11/21/18 04:00 56 11/21/18 04:00 97.4 56 18 120/50 (73) 97 11/20/18 23:59 69 11/20/18 23:30 97.5 69 18 145/65 (91) 97 11/20/18 23:30 98.4 80 18 136/78 98 Room Air 11/20/18 22:00 98.4 78 16 133/78 98 Room Air 11/20/18 21:00 Room Air 11/20/18 20:00 98.4 80 16 145/88 98 Room Air 11/20/18 20:00 80 18 11/20/18 19:53 96.4 88 16 154/87 (109) 98 Intake and Output 11/20/18 11/21/18 19:00 07:00 # Voids 2 Laboratory Tests Test 11/20/18 20:00 11/20/18 21:15 11/21/18 07:42 Urine Color Pale yellow Urine Appearance Clear Urine pH 8 (4.5-8.0) Urine Specific [place] 1.010 (1.005-1.035) Urine Protein Negative (NEGATIVE) Urine Glucose (UA) Negative (NEGATIVE) Urine Ketones Negative (NEGATIVE) Urine Blood 2+ (NEGATIVE) H Urine Nitrite Negative (NEGATIVE) Urine Bilirubin Negative (NEGATIVE) Urine Urobilinogen Normal MG/DL (0.0-1.0) Urine Leukocyte Esterase Negative (NEGATIVE) Urine RBC 0-2 /HPF (0 - 2) Urine WBC 0 /HPF (0 - 2) Urine Squamous Epithelial Cells Occasional /LPF Urine Bacteria None /HPF (NONE) White Blood Count 9.4 K/UL (4.8-10.8) 5.6 K/UL (4.8-10.8) Red Blood Count 4.42 M/UL (4.20-5.40) 4.49 M/UL (4.20-5.40) Hemoglobin 12.8 G/DL (12.0-16.0) 12.8 G/DL (12.0-16.0) Hematocrit 37.8 % (37.0-47.0) 38.1 % (37.0-47.0) Mean Corpuscular Volume 85 FL (80-99) 85 FL (80-99) Mean Corpuscular Hemoglobin 28.8 PG (27.0-31.0) 28.4 PG (27.0-31.0) Mean Corpuscular Hemoglobin Concent 33.8 G/DL (32.0-36.0) 33.4 G/DL (32.0-36.0) Red Cell Distribution Width 10.5 % (11.6-14.8) L 11.2 % (11.6-14.8) L Platelet Count 346 K/UL (150-450) 297 K/UL (150-450) Mean Platelet Volume 5.0 FL (6.5-10.1) L 4.8 FL (6.5-10.1) L Neutrophils (%) (Auto) 59.8 % (45.0-75.0) 49.9 % (45.0-75.0) Lymphocytes (%) (Auto) 27.3 % (20.0-45.0) 30.7 % (20.0-45.0) Monocytes (%) (Auto) 7.1 % (1.0-10.0) 7.4 % (1.0-10.0) Eosinophils (%) (Auto) 4.8 % (0.0-3.0) H 10.9 % (0.0-3.0) H Basophils (%) (Auto) 1.1 % (0.0-2.0) 1.1 % (0.0-2.0) Sodium Level 135 MMOL/L (136-145) L 140 MMOL/L (136-145) Potassium Level 4.4 MMOL/L (3.5-5.1) 3.1 MMOL/L (3.5-5.1) L Chloride Level 98 MMOL/L (98-107) 104 MMOL/L (98-107) Carbon Dioxide Level 25 MMOL/L (21-32) 26 MMOL/L (21-32) Anion Gap 13 mmol/L (5-15) 10 mmol/L (5-15) Blood Urea Nitrogen 14 mg/dL (7-18) 11 mg/dL (7-18) Creatinine 0.8 MG/DL (0.55-1.30) 0.8 MG/DL (0.55-1.30) Estimat Glomerular Filtration Rate mL/min (>60) mL/min (>60) Glucose Level 122 MG/DL (74-106) H 116 MG/DL (74-106) H Calcium Level 9.4 MG/DL (8.5-10.1) 8.7 MG/DL (8.5-10.1) Total Bilirubin 0.5 MG/DL (0.2-1.0) 0.6 MG/DL (0.2-1.0) Aspartate Amino Transf (AST/SGOT) 52 U/L (15-37) H 20 U/L (15-37) Alanine Aminotransferase (ALT/SGPT) 24 U/L (12-78) 22 U/L (12-78) Alkaline Phosphatase 82 U/L (46-116) 79 U/L (46-116) Total Creatine Kinase 246 U/L (26-308) Creatine Kinase MB 1.3 NG/ML (0.0-3.6) Creatine Kinase MB Relative Index 0.5 Troponin I 0.000 ng/mL (0.000-0.056) Pro-B-Type Natriuretic Peptide 209 pg/mL (0-125) H Total Protein 7.4 G/DL (6.4-8.2) 6.9 G/DL (6.4-8.2) Albumin 4.1 G/DL (3.4-5.0) 3.9 G/DL (3.4-5.0) Globulin 3.3 g/dL 3.0 g/dL Albumin/Globulin Ratio 1.2 (1.0-2.7) 1.3 (1.0-2.7) Height (Feet): 5 Height (Inches): 4.00 Weight (Pounds): 103 Medications Current Medications Medications (Trade) Dose Ordered Sig/Michael Route PRN Reason Start Time Stop Time Status Last Admin Dose Admin Acetaminophen (Tylenol) 500 mg Q4H PRN ORAL Mild Pain/Temp > 100.5 11/20/18 23:30 12/20/18 23:29 Assessment/Plan Problem List: (1) Breast cancer ICD Codes: C50.919 - Malignant neoplasm of unspecified site of unspecified female breast SNOMED: 312863138 (2) Hypertension ICD Codes: I10 - Essential (primary) hypertension SNOMED: 52107147 (3) Depression ICD Codes: F32.9 - Major depressive disorder, single episode, unspecified SNOMED: 80327414 (4) Acute encephalopathy ICD Codes: G93.40 - Encephalopathy, unspecified SNOMED: 01075081, 070140948 (5) Hypothyroid ICD Codes: E03.9 - Hypothyroidism, unspecified SNOMED: 09752495 (6) Syncope ICD Codes: R55 - Syncope and collapse SNOMED: 026186302 Qualifiers: Qualified Codes: R55 - Syncope and collapse (7) Dizziness ICD Codes: R42 - Dizziness and giddiness SNOMED: 657799365, 930509305 (8) Dizziness of unknown cause ICD Codes: R42 - Dizziness and giddiness SNOMED: 294720826 Jing Reyes N.P. Nov 21, 2018 15:54
[2018-11-21 16:00] VITALS: BP 103/58
--- NOTE | 2018-11-21 19:15 | NUR ---
NURSE NOTES: Received pt and report from KATHLEEN Parks. Observed pt resting in bed with both eyes open. school lunch monitor is in placed, IV site intact, asymptomatic, and patent. Bed is in the lowest position and locked. Call light within reach. No signs/symptoms of acute distress noted at this time. Will continue plan of care.
--- NOTE | 2018-11-21 19:23 | NUR ---
HAND-OFF: Report given to Tawny Rn. Pt. remain stable.
[2018-11-21 20:00] VITALS: BP 122/55
[2018-11-22] VITALS: BP 136/65
[2018-11-22 04:00] VITALS: BP_SYST 130; BP_SYST 145; BP_DIAS 48; BP_DIAS 56
--- NOTE | 2018-11-22 04:00 | History and Physical Report ---
DATE OF ADMISSION: 11/20/2018 HISTORY OF PRESENT ILLNESS: The patient is admitted for near-syncope and dizziness. The patient cannot speak Upper Sorbian. She states that she was feeling lightheaded and about to pass out, but did not and admitted for those symptoms. The patient has a family history of breast cancer. Denies nausea, vomiting, diarrhea, fever, or chills. She also has history of hypertension. Denies fever or chills. PAST MEDICAL HISTORY: Osteoporosis, hyperlipidemia, organic brain syndrome, hypothyroidism, depression, GERD, breast cancer, hypertension. PAST SURGICAL HISTORY: Status post removal of breast cancer. ALLERGIES: To penicillin. MEDICATIONS: Levoxyl, folic acid, donepezil, vitamin C, Lipitor, and Fosamax. FAMILY HISTORY: Noncontributory. SOCIAL HISTORY: Denies smoking, alcohol, or illicit drugs. REVIEW OF SYSTEMS: HEENT: Denies headaches. RESPIRATORY: Denies shortness of breath. Denies cough. CARDIOVASCULAR: Denies chest pain. Denies orthopnea. GASTROINTESTINAL: Denies nausea, vomiting, or diarrhea. EXTREMITIES: Feels weak. NEUROLOGIC: Does have dizziness and presyncope. . The patient is a relatively poor historian. PHYSICAL EXAMINATION: VITAL SIGNS: Temperature 98.1, pulse is 98, blood pressure 118/57. HEENT: PERRLA. NECK: Supple. CHEST: Clear to auscultation. CARDIOVASCULAR: Regular rate and rhythm. No murmurs or extra sounds. GASTROINTESTINAL: Soft, nontender, and nondistended. No organomegaly. EXTREMITIES: No edema. Moves all extremities. Sensory intact. Reflexes equal on both sides. LABORATORY DATA: WBC 9.4, hemoglobin of 12.8, platelets 284,000. Sodium 135, potassium 4.4, BUN 14, creatinine . ASSESSMENT AND PLAN: Syncopal episode. I have asked Dr. Davis and Dr. Ibanez to see the patient for the dizziness to rule out vertigo workup. Compa Ya M.D. DR: Wagner JOB#: [id number] CC:
--- NOTE | 2018-11-22 07:19 | NUR ---
NURSE NOTES: Report received from KATHLEEN Hector. Observed patient in bed eating breakfast. Denies pain at this time. No distress noted in room air. IV site intact and patent. Bed in lowest position. Call light within reach. Will continue to monitor.
--- NOTE | 2018-11-22 07:32 | NUR ---
HAND-OFF: Report given to KATHLEEN Simpson.
[2018-11-22 08:00] VITALS: BP 123/67
[2018-11-22 10:09] LABS: BASOPHILS % (AUTO) 0.7 % (0.0-2.0); EOSINOPHILS % (AUTO) 11.3 % (0.0-3.0); HEMATOCRIT 38.5 % (37.0-47.0); HEMOGLOBIN 12.7 G/DL (12.0-16.0); LYMPHOCYTES % (AUTO) 25.5 % (20.0-45.0); MEAN CORPUSCULAR VOLUME 86 FL (80-99); MONOCYTES % (AUTO) 8.9 % (1.0-10.0); NEUTROPHILS % (AUTO) 53.6 % (45.0-75.0); PLATELET COUNT 347 K/UL (150-450); RED BLOOD COUNT 4.48 M/UL (4.20-5.40); RED CELL DISTRIBUTION WIDTH 11.2 % (11.6-14.8)
[2018-11-22 10:42] LABS: ALANINE AMINOTRANSFERASE 23 U/L (12-78); ALBUMIN 3.5 G/DL (3.4-5.0); ALKALINE PHOSPHATASE 77 U/L (46-116); ANION GAP 8 mmol/L (5-15); ASPARTATE AMINO TRANSFERASE 16 U/L (15-37); BILIRUBIN,TOTAL 0.3 MG/DL (0.2-1.0); BLOOD UREA NITROGEN 20 mg/dL (7-18); CALCIUM 9.6 MG/DL (8.5-10.1); CARBON DIOXIDE 28 MMOL/L (21-32); CHLORIDE 104 MMOL/L (98-107); CREATININE 0.8 MG/DL (0.55-1.30); POTASSIUM 3.6 MMOL/L (3.5-5.1); SODIUM 140 MMOL/L (136-145)
--- NOTE | 2018-11-22 11:30 | NUR ---
NURSE NOTES: Patient discharged to home via private vehicle accompanied with family member. Patient is alert and oriented x 4 and verbally responsive. No distress noted in room air. All discharge instructions given to patient and family member with verbalized understanding. Belongings checked with patient. Skin is intact. personnel monitor, IV site, and ID band removed prior to discharge. Able to ambulate by herself. Escorted the patient to down stairs. Stable condition.
--- NOTE | 2018-11-22 12:32 | Diagnostic Imaging Report ---
APPROVED REPORT CPT Code: 91790 Present Symptoms Comments: Screening BILATERAL: Imaging reveals a patent deep venous system bilaterally. There is no evidence of thrombus within the common femoral, superficial femoral, popliteal or tibial segments. The greater saphenous veins are within normal limits. Doppler indicates normal spontaneous flow within these segments.
--- NOTE | 2018-11-23 08:01 | Discharge Summary ---
Discharge Summary Discharge Summary _ DATE OF ADMISSION: 11/20/2018 DATE OF DISCHARGE: 11/22/2028 DISCHARGED BY: Dr. Compa Lugo CONSULTANTS: Dr. Pepito Davis [facility] HOSPITAL COURSE: Patient is an 78-year-old female, who was admitted for near syncope and dizziness. She was feeling lightheaded and was about to pass out, but did not. She has history of osteoporosis, hyperlipidemia, organic brain syndrome, hypothyroidism, depression, GERD, breast cancer and hypertension. On evaluation at the ED, blood pressure 154/87, pulse rate 88, she was saturating 98% on room air. Blood work did not show any leukocytosis. Hemoglobin and hematocrit were stable. Electrolytes were normal. Kidney function normal. Troponin was negative. Urinalysis was negative for infection. EKG showed normal sinus rhythm with no acute changes. Chest x-ray did not show any acute disease. CT of the head with no acute process. She was given IV hydration. She was given meclizine and Reglan. She was then admitted for evaluation of syncope and dizziness. She was admitted to monitored floor. Neurologist was consulted. She was given electrolyte replacement. Venous duplex of the lower extremity was negative for DVT. Vital signs were stable. She had improvement in symptoms. She was eventually discharged home. FINAL DIAGNOSES: Near syncope Dizziness Hypothyroidism Acute encephalopathy Depression Hypertension Breast cancer DISPOSITION: Patient was discharged home. DISCHARGE MEDICATIONS: Refer to Discharge Medication List. DISCHARGE INSTRUCTIONS: Follow-up in a week. I have been assigned to complete a discharge summary on this account, I was not involved with the patient's management.--WILLARD Norman Jacqueline Robles NP Nov 23, 2018 08:01
--- NOTE | 2018-11-23 12:18 | Cardiology Report ---
APPROVED REPORT EKG Measurement Heart [id number] [place] [id number] Normal sinus rhythm Normal ECG
== END 2018-11-22 11:30 | disposition home or self-care (01) | DRG 149 ==
LOC: EDBD 19:57 → EMR 20:35 → 2E 22:22 → EDBEDREQ 22:53 → OBSVTOIN 23:23 → 2E 11-21 06:31
DX: R42 Dizziness and giddiness (principal); G93.40 Encephalopathy, unspecified; R55 Syncope and collapse; M81.0 Age-related osteoporosis without current pathological fracture; E78.5 Hyperlipidemia, unspecified; F09 Unspecified mental disorder due to known physiological condition; E03.9 Hypothyroidism, unspecified; K21.9 Gastro-esophageal reflux disease without esophagitis; Z85.3 Personal history of malignant neoplasm of breast; I10 Essential (primary) hypertension; Z88.0 Allergy status to penicillin; F32.9 Major depressive disorder, single episode, unspecified
CPT/HCPCS: 36415; 70450; 71045; 80053; 81003; 82550; 82553; 83880; 84484; 85025; 93005; 93970; 96374; 99285; J2765; J8499

== ENCOUNTER 2018-12-16 19:47 | Emergency (ER) | payer BC, MEDICAID ==
[~2018-12-16] VITALS: Ht 162.6 cm; Wt 54.4 kg
[~2018-12-16 19:47] MED LIST changes: +ARICEPT5 MG ORAL; +ATORVASTATIN CA20 MG ORAL; +IBUPROFEN600 MG ORAL; +amoxicillin
--- NOTE | 2018-12-16 19:50 | NUR ---
ED Nurse Note: Pt BIBA from home c/o generalized weakness and near syncopal episode. Pt is A&Ox4. Pt c/o 07/08 LAMBERT. VSS
[2018-12-16 19:53] VITALS: BP 139/64
[2018-12-16 20:00] VITALS: BP 139/64
[2018-12-16] MEDS ORDERED: Sodium Chloride 550 ML IV SCH (20:00)
[2018-12-16] MEDS ORDERED: UNOBMED (20:01)
--- NOTE | 2018-12-16 20:01 | Emergency Room Report ---
History of Present Illness General Chief Complaint: Generalized Weakness Source: Patient Present Illness [facility] transported the patient. They understood that she had fallen. She states that she felt that she was going to fall but did not fall. She has a mild headache. She rates the pain 2/10. She has difficulty characterizing it. Is not radiating. She was admitted in October for evaluation of syncope. She denies any chest pain, palpitations, fever, dyspnea, nausea, vomiting, constipation. She has had some loose stools today. She denies dysuria. She has a slight headache at this time left-sided. She has borderline diabetes. Accu-Chek was normal in the field. D/C dx October: Near syncope Dizziness Hypothyroidism Acute encephalopathy Depression Hypertension Breast cancer Allergies: Coded Allergies: PENICILLINS (Unverified Allergy, Unknown, 11/01/17) Uncoded Allergies: "ANTIBIOTICS" (Allergy, Unknown, 09/18/17) Patient History Past Medical History: see triage record Past Surgical History: other - Left lumpectomy Social History: Denies: smoking Social History Narrative This with her daughter Now: No Reviewed Nursing Documentation: PMH: Agreed; PSxH: Agreed Nursing Documentation-PMH Past Medical History: No History, Except For Hx Cardiac Problems: Yes Hx Hypertension: Yes Hx Diabetes: Yes - borderline DM Hx Cancer: Yes Hx Gastrointestinal Problems: No Hx Neurological Problems: Yes Hx Memory Loss: Yes Hx Syncope: Yes Review of Systems All Other Systems: negative except mentioned in HPI Physical Exam Vital Signs Date Time Temp Pulse Resp B/P (MAP) Pulse Ox O2 Delivery O2 Flow Rate FiO2 12/16/18 19:43 98.4 90 18 139/64 (89) 90 Sp02 EP Interpretation: reviewed, normal General Appearance: well appearing, no apparent distress, GCS 15 Head: normocephalic, atraumatic Eyes: bilateral eye normal inspection, bilateral eye PERRL, bilateral eye EOMI ENT: moist mucus membranes Neck: full range of motion, supple, no bony tend Respiratory: chest non-tender, lungs clear, normal breath sounds Cardiovascular #1: regular rate, rhythm Cardiovascular #2: 2+ radial (R) Gastrointestinal: normal inspection, normal bowel sounds, non tender, non- distended Genitourinary: no CVA tenderness Musculoskeletal: back normal, gait/station normal, normal range of motion Neurologic: alert, stock digger III-XII nml as tested, motor strength/tone normal, DTRs symmetric, sensory intact, cerebellar normal, normal gait, speech normal, oriented - X2 Psychiatric: depressed affect Skin: no rash Medical Decision Making Diagnostic Impression: Primary Impression: Near syncope Additional Impression: Hypokalemia ER Course Patient presents with alleged near syncope. Differential includes acute myocardial infarction, arrhythmia, electrolyte imbalance, volume depletion, occult infection amongst others. Evaluation with EKG, chest x-ray and labs. She has a nonfocal neurologic exam at this time and CT of the head is not indicated. EKG without injury. Chest x-ray unremarkable. Labs significant for low potassium. Negative troponin. Potassium given to the patient. The patient is not orthostatic. Discussed findings with patient and daughter. The daughter states that she frequently has low potassium. She was advised to discuss this with the private doctor. No medical emergency at this time. Patient stable for outpatient observation and treatment. Laboratory Tests Test 12/16/18 20:00 12/16/18 20:40 White Blood Count 7.7 K/UL (4.8-10.8) Red Blood Count 4.44 M/UL (4.20-5.40) Hemoglobin 12.5 G/DL (12.0-16.0) Hematocrit 37.9 % (37.0-47.0) Mean Corpuscular Volume 85 FL (80-99) Mean Corpuscular Hemoglobin 28.2 PG (27.0-31.0) Mean Corpuscular Hemoglobin Concent 33.1 G/DL (32.0-36.0) Red Cell Distribution Width 10.8 % (11.6-14.8) L Platelet Count 339 K/UL (150-450) Mean Platelet Volume 4.8 FL (6.5-10.1) L Neutrophils (%) (Auto) 47.3 % (45.0-75.0) Lymphocytes (%) (Auto) 31.2 % (20.0-45.0) Monocytes (%) (Auto) 8.2 % (1.0-10.0) Eosinophils (%) (Auto) 12.6 % (0.0-3.0) H Basophils (%) (Auto) 0.9 % (0.0-2.0) Erythrocyte Sedimentation Rate 32 MM/HR (0-30) H Prothrombin Time 10.7 SEC (9.30-11.50) Prothrombin Time INR 1.0 (0.9-1.1) PTT 26 SEC (23-33) Sodium Level 135 MMOL/L (136-145) L Potassium Level 3.1 MMOL/L (3.5-5.1) L Chloride Level 99 MMOL/L (98-107) Carbon Dioxide Level 31 MMOL/L (21-32) Anion Gap 6 mmol/L (5-15) Blood Urea Nitrogen 17 mg/dL (7-18) Creatinine 0.8 MG/DL (0.55-1.30) Estimate Glomerular Filtration Rate mL/min (>60) Glucose Level 120 MG/DL (74-106) H Calcium Level 9.7 MG/DL (8.5-10.1) Total Bilirubin 0.3 MG/DL (0.2-1.0) Aspartate Amino Transferase (AST) 18 U/L (15-37) Alanine Aminotransferase (ALT) 18 U/L (12-78) Alkaline Phosphatase 80 U/L (46-116) Total Creatine Kinase 134 U/L (26-308) Troponin I 0.004 ng/mL (0.000-0.056) Pro-B-Type Natriuretic Peptide 285 pg/mL (0-125) H Total Protein 6.8 G/DL (6.4-8.2) Albumin 4.0 G/DL (3.4-5.0) Globulin 2.8 g/dL Albumin/Globulin Ratio 1.4 (1.0-2.7) Thyroid Stimulating Hormone (TSH) 1.406 uiU/mL (0.358-3.740) Urine Color Pale yellow Urine Appearance Clear Urine pH 7 (4.5-8.0) Urine Specific [place] 1.005 (1.005-1.035) Urine Protein Negative (NEGATIVE) Urine Glucose (UA) Negative (NEGATIVE) Urine Ketones Negative (NEGATIVE) Urine Blood 1+ (NEGATIVE) H Urine Nitrite Negative (NEGATIVE) Urine Bilirubin Negative (NEGATIVE) Urine Urobilinogen Normal MG/DL (0.0-1.0) Urine Leukocyte Esterase Negative (NEGATIVE) Urine RBC 0-2 /HPF (0 - 2) Urine WBC 0-2 /HPF (0 - 2) Urine Squamous Epithelial Cells Occasional /LPF Urine Bacteria None /HPF (NONE) Urine Opiates Screen Negative (NEGATIVE) Urine Barbiturates Screen Negative (NEGATIVE) Phencyclidine (PCP) Screen Negative (NEGATIVE) Urine Amphetamines Screen Negative (NEGATIVE) Urine Benzodiazepines Screen Negative (NEGATIVE) Urine Cocaine Screen Negative (NEGATIVE) Urine Marijuana (THC) Screen Negative (NEGATIVE) EKG Diagnostic Results Rate: normal Rhythm: NSR ST Segments: no acute changes Rhythm Strip Diag. Results EP Interpretation: yes Rhythm: NSR, no PVC's, no ectopy Chest X-Ray Diagnostic Results Chest X-Ray Diagnostic Results : Chest X-Ray Ordered: Yes # of Views/Limited/Complete: 1 View Indication: Other EP Interpretation: Yes Interpretation: no consolidation, no effusion, no pneumothorax, other - tortuous aorta Impression: Other Electronically Signed by: Electronically signed by David Fernández MD Last Vital Signs Date Time Temp Pulse Resp B/P (MAP) Pulse Ox O2 Delivery O2 Flow Rate FiO2 12/16/18 22:15 98.4 90 18 139/64 90 Status: improved Disposition: HOME, SELF-CARE Condition: Improved Scripts Potassium Chloride* (K-DUR*) 10 Meq Capsule.er 10 MEQ ORAL DAILY, #7 TAB 0 Refills Prov: David Fernández MD 12/16/18 David Fernández MD Dec 16, 2018 20:01
[2018-12-16 20:39] LABS: ANION GAP 6 mmol/L (5-15); BLOOD UREA NITROGEN 17 mg/dL (7-18); CALCIUM 9.7 MG/DL (8.5-10.1); CARBON DIOXIDE 31 MMOL/L (21-32); CHLORIDE 99 MMOL/L (98-107); CREATININE 0.8 MG/DL (0.55-1.30); POTASSIUM 3.1 MMOL/L (3.5-5.1); SODIUM 135 MMOL/L (136-145)
[2018-12-16 20:45] LABS: BASOPHILS % (AUTO) 0.9 % (0.0-2.0); EOSINOPHILS % (AUTO) 12.6 % (0.0-3.0); HEMATOCRIT 37.9 % (37.0-47.0); HEMOGLOBIN 12.5 G/DL (12.0-16.0); LYMPHOCYTES % (AUTO) 31.2 % (20.0-45.0); MEAN CORPUSCULAR VOLUME 85 FL (80-99); MONOCYTES % (AUTO) 8.2 % (1.0-10.0); NEUTROPHILS % (AUTO) 47.3 % (45.0-75.0); PLATELET COUNT 339 K/UL (150-450); RED BLOOD COUNT 4.44 M/UL (4.20-5.40); RED CELL DISTRIBUTION WIDTH 10.8 % (11.6-14.8); WHITE BLOOD COUNT 7.7 K/UL (4.8-10.8)
[2018-12-16 20:53] LABS: ALANINE AMINOTRANSFERASE 18 U/L (12-78); ALBUMIN/GLOBULIN RATIO 1.4 (1.0-2.7); ALKALINE PHOSPHATASE 80 U/L (46-116); ASPARTATE AMINO TRANSFERASE 18 U/L (15-37); BILIRUBIN,TOTAL 0.3 MG/DL (0.2-1.0); CREATINE KINASE 134 U/L (26-308)
[2018-12-16 21:06] LABS: APPEARANCE,URINE CLEAR; BILIRUBIN, URINE NEGATIVE (NEGATIVE); COLOR,URINE PALE YELLOW; GLUCOSE, URINE (UA) NEGATIVE (NEGATIVE); KETONES,URINE NEGATIVE (NEGATIVE); LEUKOCYTE ESTERASE ,URINE NEGATIVE (NEGATIVE); NITRITE,URINE NEGATIVE (NEGATIVE); PH,URINE 7 (4.5-8.0); PROTEIN,URINE NEGATIVE (NEGATIVE); UROBILINOGEN,URINE NORMAL MG/DL (0.0-1.0)
--- NOTE | 2018-12-16 21:55 | NUR ---
Note sudheerone in EDM - 12/16/18 at 2155 by KDEARING ER DISCHARGE NOTE: Patient is cleared to be discharged per ERMD, pt is aox4, on room air, with stable vital signs. pt was given dc and prescription instructions, pt was able to verbalize understanding, pt id band and iv site removed without complications. pt is able to ambulate with steady gait. pt took all belongings.
[2018-12-16] MEDS ORDERED: POTASSIUM CHLO10 MEQ ORAL (22:13)
[2018-12-16 22:15] VITALS: BP 139/64
--- NOTE | 2018-12-16 22:15 | NUR ---
ER DISCHARGE NOTE: Patient is cleared to be discharged per ERMD, pt is aox4, on room air, with stable vital signs. pt was given dc and prescription instructions, pt was able to verbalize understanding, pt id band and iv site removed without complications. pt is able to ambulate with steady gait. pt took all belongings.
--- NOTE | 2018-12-17 12:12 | Diagnostic Imaging Report ---
Indication: Chest pain Technique: One view of the chest Comparison: 11/20/2018 Findings: Patient is rotated to the left. The aorta is tortuous ectatic and calcified. The heart size is normal. There are left axillary surgical clips. No significant interim change Impression: No acute process
--- NOTE | 2018-12-17 21:04 | Cardiology Report ---
APPROVED REPORT EKG Measurement Heart [id number] Normal sinus rhythm Normal ECG
== END 2018-12-16 21:15 | disposition home or self-care (01) ==
LOC: EDBD 19:47 → EMR 20:19
DX: R55 Syncope and collapse (principal); E87.6 Hypokalemia; I10 Essential (primary) hypertension; Z88.0 Allergy status to penicillin; Z85.3 Personal history of malignant neoplasm of breast; F32.9 Major depressive disorder, single episode, unspecified
CPT/HCPCS: 36415; 71045; 80053; 80307; 81003; 82550; 83880; 84443; 84484; 85025; 85610; 85651; 85730; 93005; 96360; 96361; 99284; J8499

== ENCOUNTER 2018-12-30 18:00 | Emergency (ER) | payer OTHER, MEDICAID ==
[~2018-12-30] VITALS: Ht 152.4 cm; Wt 54.4 kg
[2018-12-30] VITALS (7 sets, daily range): BP systolic 130–135; BP diastolic 58–86
[~2018-12-30 18:00] MED LIST changes: +POTASSIUM CHLO10 MEQ ORAL; +UNOBMED
--- NOTE | 2018-12-30 18:13 | NUR ---
ED Nurse Note: Pt brought in by RA 834 from home due to dizziness x 3 days. Pt states she fell around 1640 this afternoon. Denies head injury or any pain. No associated vomiting. AAO x4, follows commands with non labored breathing.
--- NOTE | 2018-12-30 18:59 | Emergency Room Report ---
History of Present Illness General Chief Complaint: Dizziness Source: Patient, Medical Record Present Illness HPI Disclaimer: Please note that this report is being documented using DRAGON technology. This can lead to erroneous entry secondary to incorrect interpretation by the dictating instrument. HPI: History obtained using translato as she is primarily Cymro-speaking r. 78-year-old female with history of recurrent near syncopal episodes, hypothyroidism, hypokalemia, depression, memory loss and remote history of breast cancer presents for evaluation of lightheadedness. Approximately 4:30 PM this afternoon the patient states she felt unsteady and lightheaded causing her to fall forward but denies any head injury. She was able to rise on her own though this continues to feel lightheadedness describing it as her "head coming off." She denies any vertiginous symptoms, chest pain, palpitations, difficulty breathing, diaphoresis. There was no loss of consciousness. She is been evaluated several times for similar complaints in the past and been admitted in November where work-up revealed no significant findings aside from persistent hypokalemia. She states she has been taking her supplements. Denies any recent fever, chills, visual changes, vomiting, diarrhea, rash, dysuria. She denies any headache or visual changes currently. PMH: Hypertension, hypokalemia, recurrent near syncopal episodes, hypothyroidism , breast cancer Allergies: Penicillin Social Hx:, denies alcohol or drug abuse Allergies: Coded Allergies: PENICILLINS (Unverified Allergy, Unknown, 11/01/17) Uncoded Allergies: "ANTIBIOTICS" (Allergy, Unknown, 09/18/17) Patient History Last Menstrual Period: menopause Now: No Nursing Documentation-PMH Hx Cardiac Problems: Yes Hx Hypertension: Yes Hx Diabetes: Yes - borderline DM Hx Cancer: Yes Hx Gastrointestinal Problems: No Hx Neurological Problems: Yes Hx Memory Loss: Yes Hx Syncope: Yes Review of Systems All Other Systems: negative except mentioned in HPI Physical Exam Vital Signs Date Time Temp Pulse Resp B/P (MAP) Pulse Ox O2 Delivery O2 Flow Rate FiO2 12/30/18 18:03 97.5 88 16 126/66 (86) 98 Room Air General: Awake and alert, no acute distress HEENT: NC/AT. EOMI. PERRLA. No nystagmus. Moist mucous membranes Neck: Supple, trachea midline Chest Wall: No tenderness, no deformity Cardiovascular: RRR. S1 and S2 normal. No murmur appreciated Resp: Normal work of breathing. No cough, wheezing or crackles appreciated Abdomen: Abdomen is soft, nondistended. Nontender Skin: Intact. No abrasions, laceration or rash over the exposed skin. No ecchymosis or breakdown MSK: Normal tone and bulk. Moving all extremities. No obvious deformity. No tenderness or effusion in the shoulders, elbows, wrists, hands, hips, knees or ankles. Pelvis is stable. Neuro: Awake and alert. Mentating appropriately. Good attention and concentration. No dysarthria. No ataxia. Medical Decision Making Diagnostic Impression: Primary Impression: Near syncope Additional Impression: Hypokalemia ER Course 78-year-old female with a history of hypokalemia, recurrent episodes of syncope , hypertension presents for evaluation after near syncopal episode with fall but no head injury. Differential includes but is not limited to orthostatic hypotension, ACS, arrhythmia, electrolyte abnormality, infection, near syncope of unknown cause, dehydration. Will start broad metabolic work-up, EKG, start IV fluids and check orthostatic pressures. Given that the patient has had multiple emergency department visits with similar presentations and an inpatient admission and work-up if labs, EKG, imaging are within normal limits she may be suitable for discharge and outpatient follow-up however she remains symptomatic she may be admitted if needed. Laboratory Tests Test 12/30/18 19:00 12/30/18 20:15 White Blood Count 7.6 K/UL (4.8-10.8) Red Blood Count 4.29 M/UL (4.20-5.40) Hemoglobin 12.3 G/DL (12.0-16.0) Hematocrit 36.0 % (37.0-47.0) L Mean Corpuscular Volume 84 FL (80-99) Mean Corpuscular Hemoglobin 28.7 PG (27.0-31.0) Mean Corpuscular Hemoglobin Concent 34.1 G/DL (32.0-36.0) Red Cell Distribution Width 10.9 % (11.6-14.8) L Platelet Count 321 K/UL (150-450) Mean Platelet Volume 4.8 FL (6.5-10.1) L Neutrophils (%) (Auto) 48.0 % (45.0-75.0) Lymphocytes (%) (Auto) 26.1 % (20.0-45.0) Monocytes (%) (Auto) 12.8 % (1.0-10.0) H Eosinophils (%) (Auto) 12.0 % (0.0-3.0) H Basophils (%) (Auto) 1.1 % (0.0-2.0) Sodium Level 138 MMOL/L (136-145) Potassium Level 3.2 MMOL/L (3.5-5.1) L Chloride Level 101 MMOL/L (98-107) Carbon Dioxide Level 28 MMOL/L (21-32) Anion Gap 9 mmol/L (5-15) Blood Urea Nitrogen 10 mg/dL (7-18) Creatinine 0.8 MG/DL (0.55-1.30) Estimat Glomerular Filtration Rate mL/min (>60) Glucose Level 126 MG/DL (74-106) H Calcium Level 9.1 MG/DL (8.5-10.1) Total Bilirubin 0.3 MG/DL (0.2-1.0) Aspartate Amino Transf (AST/SGOT) 17 U/L (15-37) Alanine Aminotransferase (ALT/SGPT) 16 U/L (12-78) Alkaline Phosphatase 75 U/L (46-116) Total Creatine Kinase 120 U/L (26-308) Creatine Kinase MB 0.9 NG/ML (0.0-3.6) Creatine Kinase MB Relative Index 0.7 Troponin I 0.004 ng/mL (0.000-0.056) Pro-B-Type Natriuretic Peptide 269 pg/mL (0-125) H Total Protein 6.8 G/DL (6.4-8.2) Albumin 3.5 G/DL (3.4-5.0) Globulin 3.3 g/dL Albumin/Globulin Ratio 1.1 (1.0-2.7) Urine Color Pale yellow Urine Appearance Clear Urine pH 8 (4.5-8.0) Urine Specific [place] 1.010 (1.005-1.035) Urine Protein Negative (NEGATIVE) Urine Glucose (UA) Negative (NEGATIVE) Urine Ketones Negative (NEGATIVE) Urine Blood 1+ (NEGATIVE) H Urine Nitrite Negative (NEGATIVE) Urine Bilirubin Negative (NEGATIVE) Urine Urobilinogen Normal MG/DL (0.0-1.0) Urine Leukocyte Esterase Negative (NEGATIVE) Urine RBC 5-10 /HPF (0 - 2) H Urine WBC 0-2 /HPF (0 - 2) Urine Squamous Epithelial Cells Few /LPF (NONE/OCC) Urine Bacteria Few /HPF (NONE) EKG Diagnostic Results EKG Time: 19:04 Rate: normal Rhythm: NSR ST Segments: no acute changes Other Impression Incomplete right bundle branch block pattern V3 Rhythm Strip Diag. Results Rhythm Strip Time: 19:04 EP Interpretation: yes Rate: 80s Rhythm: NSR Chest X-Ray Diagnostic Results Chest X-Ray Diagnostic Results : # of Views/Limited/Complete: 1 View Indication: Other - Near syncope EP Interpretation: Yes Interpretation: no consolidation, no effusion, no pneumothorax, other - Normal cardiac silhouette Impression: No acute disease Electronically Signed by: Electronically signed by Dr. Sancho Mercer Reevaluation Time: 21:22 Last Vital Signs Date Time Temp Pulse Resp B/P (MAP) Pulse Ox O2 Delivery O2 Flow Rate FiO2 12/30/18 18:13 76 20 Room Air 12/30/18 18:03 97.5 126/66 (86) 98 Status: improved Reevaluation Impression Labs have returned largely within normal limits aside from findings of hypokalemia with a level of 3.2. Troponin is negative. EKG shows sinus rhythm with an incomplete right bundle branch block pattern but no ischemic changes, normal intervals, normal axis and is otherwise unremarkable. The patient's is now completely asymptomatic. She is no longer taking potassium. We will give an IV and oral dose of potassium in the emergency department and discharged to follow-up with her PMD. She already has a scheduled appointment for an 3 days from now. If she cannot see her PMD we have also included a list of clinics in the area where she can be followed up. Will discharge on a short course of potassium. We discussed reasons to return to the emergency department and she verbalized understanding with and agreement treatment plan. Disposition: HOME, SELF-CARE Condition: Improved Scripts Potassium Chloride (KLOR-CON) 20 Meq Packet 20 MEQ ORAL DAILY, #5 PKT 0 Refills Prov: Sancho Mercer MD 12/30/18 Sancho Mercer MD Dec 30, 2018 18:59
--- NOTE | 2018-12-30 19:09 | NUR ---
ED Nurse Note: Collected blood specimen then sent.
--- NOTE | 2018-12-30 19:10 | NUR ---
HAND-OFF: Report given to Kira WANG.
[2018-12-30 19:19] LABS: BASOPHILS % (AUTO) 1.1 % (0.0-2.0); HEMOGLOBIN 12.3 G/DL (12.0-16.0); LYMPHOCYTES % (AUTO) 26.1 % (20.0-45.0); MEAN CORPUSCULAR VOLUME 84 FL (80-99); MONOCYTES % (AUTO) 12.8 % (1.0-10.0); PLATELET COUNT 321 K/UL (150-450); RED BLOOD COUNT 4.29 M/UL (4.20-5.40); RED CELL DISTRIBUTION WIDTH 10.9 % (11.6-14.8); WHITE BLOOD COUNT 7.6 K/UL (4.8-10.8)
[2018-12-30 19:31] LABS: ANION GAP 9 mmol/L (5-15); BLOOD UREA NITROGEN 10 mg/dL (7-18); CALCIUM 9.1 MG/DL (8.5-10.1); CARBON DIOXIDE 28 MMOL/L (21-32); CHLORIDE 101 MMOL/L (98-107); CREATININE 0.8 MG/DL (0.55-1.30); POTASSIUM 3.2 MMOL/L (3.5-5.1); SODIUM 138 MMOL/L (136-145)
[2018-12-30 19:44] LABS: ALANINE AMINOTRANSFERASE 16 U/L (12-78); ALBUMIN 3.5 G/DL (3.4-5.0); ALBUMIN/GLOBULIN RATIO 1.1 (1.0-2.7); ALKALINE PHOSPHATASE 75 U/L (46-116); ASPARTATE AMINO TRANSFERASE 17 U/L (15-37); BILIRUBIN,TOTAL 0.3 MG/DL (0.2-1.0); CKMB 0.9 NG/ML (0.0-3.6); CREATINE KINASE 120 U/L (26-308)
--- NOTE | 2018-12-30 20:29 | NUR ---
ER Nurse Note: All orders completed per ERMD orders. Pt a&ox4, VSS, no signs of distress. Pt on RA, calm and cooperative. SLIV RT AC; patent. All safety measures met; will continue to montior.
[2018-12-30 20:37] LABS: APPEARANCE,URINE CLEAR; BILIRUBIN, URINE NEGATIVE (NEGATIVE); COLOR,URINE PALE YELLOW; GLUCOSE, URINE (UA) NEGATIVE (NEGATIVE); KETONES,URINE NEGATIVE (NEGATIVE); LEUKOCYTE ESTERASE ,URINE NEGATIVE (NEGATIVE); NITRITE,URINE NEGATIVE (NEGATIVE); PH,URINE 8 (4.5-8.0); PROTEIN,URINE NEGATIVE (NEGATIVE); UROBILINOGEN,URINE NORMAL MG/DL (0.0-1.0)
[2018-12-30] MEDS ORDERED: KLOR-CON20 MEQ ORAL (21:18)
--- NOTE | 2018-12-30 22:40 | NUR ---
ER Nurse Note: Pt seen, treated, medically cleared for discharge by ERMD. Discharge instuctions and prescriptions given with repeat verbalization by pt. Emphasized to follow up with primay care provider; take whole course of medication. Explained each medication. All orders completed per ERMD orders. Pt a&ox4, VSS, no signs of distress. ID band removed. IV discontinued; site clean and bandaged. All questions answered per pt's questions. Pt left with all belongings, left with own transportation.
--- NOTE | 2018-12-31 12:13 | Cardiology Report ---
APPROVED REPORT EKG Measurement Heart [id number] Normal sinus rhythm Normal ECG
== END 2018-12-30 22:40 | disposition home or self-care (01) ==
LOC: EDBD 18:00 → EMR 21:12
DX: R55 Syncope and collapse (principal); E87.6 Hypokalemia; I10 Essential (primary) hypertension; E03.9 Hypothyroidism, unspecified; Z85.3 Personal history of malignant neoplasm of breast; Z88.0 Allergy status to penicillin; E11.9 Type 2 diabetes mellitus without complications
CPT/HCPCS: 36415; 80053; 81003; 82550; 82553; 83880; 84484; 85025; 93005; 96361; 96365; 99284; J3480; J8499

== ENCOUNTER 2019-02-22 19:38 | Emergency (ER) | payer OTHER, MEDICAID ==
[~2019-02-22] VITALS: Ht 160 cm; Wt 68.0 kg
[~2019-02-22 19:38] MED LIST changes: +KLOR-CON20 MEQ ORAL
--- NOTE | 2019-02-22 19:46 | NUR ---
ED Nurse Note: Patient borught in by ambulance with complaints of altered blood pressure. Patient denies hypertension diagnosis and vital signs taken upon arrival reveal blood pressure within normal range. Patient denies pain at this time. Will continue to monitor. Addendum: 02/22/19 at 2016 by PATRICIA ED Nurse Note: Patient brought in by [id number].
[2019-02-22 19:47] VITALS: BP 128/78
--- NOTE | 2019-02-22 20:00 | NUR ---
ED Nurse Note: Patient able to ambulate to restroom and provide urine sample. Sample taken to lab.
[2019-02-22 20:07] LABS: APPEARANCE,URINE CLEAR; BILIRUBIN, URINE NEGATIVE (NEGATIVE); COLOR,URINE PALE YELLOW; GLUCOSE, URINE (UA) NEGATIVE (NEGATIVE); KETONES,URINE NEGATIVE (NEGATIVE); LEUKOCYTE ESTERASE ,URINE 1+ (NEGATIVE); NITRITE,URINE NEGATIVE (NEGATIVE); PH,URINE 6.5 (4.5-8.0); PROTEIN,URINE NEGATIVE (NEGATIVE); UROBILINOGEN,URINE NORMAL MG/DL (0.0-1.0)
--- NOTE | 2019-02-22 20:09 | Emergency Room Report ---
History of Present Illness General Chief Complaint: General Complaint Source: Patient Present Illness HPI This is an 78-year-old female brought in by EMS after increased anxiousness. Patient denies any pain. She denies any palpitations or shortness of breath. She states that she feels as if her blood pressure may be elevated. She denies any headache. Patient was brought in by EMS and had been noted to have normal blood pressure. She states that she had been having some slight lip swelling after eating some pineapple. She denies any fever or chills. She denies any abdominal pain. Allergies: Coded Allergies: PENICILLINS (Unverified Allergy, Unknown, 11/01/17) Uncoded Allergies: "ANTIBIOTICS" (Allergy, Unknown, 09/18/17) Patient History Past Medical History: see triage record Last Menstrual Period: na Reviewed Nursing Documentation: PMH: Agreed; PSxH: Agreed Nursing Documentation-PMH Hx Cardiac Problems: Yes Hx Hypertension: Yes Hx Diabetes: Yes - borderline DM Hx Cancer: Yes Hx Gastrointestinal Problems: No Hx Neurological Problems: Yes Hx Memory Loss: Yes Hx Syncope: Yes Review of Systems All Other Systems: negative except mentioned in HPI Physical Exam Vital Signs Date Time Temp Pulse Resp B/P (MAP) Pulse Ox O2 Delivery O2 Flow Rate FiO2 02/22/19 19:42 98.6 84 16 128/78 (95) 98 Room Air Sp02 EP Interpretation: reviewed, normal General Appearance: normal inspection, well appearing, no apparent distress, alert, GCS 15 Head: atraumatic ENT: normal ENT inspection, hearing grossly normal, normal voice Neck: normal inspection, full range of motion, supple, no bony tend Respiratory: normal inspection, lungs clear, normal breath sounds, no respiratory distress, no retraction, no wheezing Cardiovascular #1: regular rate, rhythm, no edema Gastrointestinal: normal inspection, normal bowel sounds, non tender, soft, no guarding, no hernia Genitourinary: no CVA tenderness Musculoskeletal: normal inspection, back normal, normal range of motion Neurologic: normal inspection, alert, oriented x3, responsive, melt superintendant III-XII nml as tested, speech normal Psychiatric: normal inspection, judgement/insight normal, mood/affect normal Medical Decision Making Diagnostic Impression: Primary Impression: Anxiety ER Course Patient presented for generalized anxiety. Differential diagnosis include was not limited to myocardial infarction, arrhythmia, depression, anxiety among others. Patient has a benign exam and does not appear to require any imaging or laboratory testing at this time. EKG interpreted by me showed normal sinus rhythm with a rate of [address] or T wave changes. Patient was noted to be normotensive. Labs Test 02/22/19 20:00 Urine Color Pale yellow Urine Appearance Clear Urine pH 6.5 (4.5-8.0) Urine Specific [place] 1.010 (1.005-1.035) Urine Protein Negative (NEGATIVE) Urine Glucose (UA) Negative (NEGATIVE) Urine Ketones Negative (NEGATIVE) Urine Blood 3+ (NEGATIVE) Urine Nitrite Negative (NEGATIVE) Urine Bilirubin Negative (NEGATIVE) Urine Urobilinogen Normal MG/DL (0.0-1.0) Urine Leukocyte Esterase 1+ (NEGATIVE) Urine RBC 5-10 /HPF (0 - 2) Urine WBC 0-2 /HPF (0 - 2) Urine Squamous Epithelial Cells None /LPF (NONE/OCC) Urine Bacteria None /HPF (NONE) EKG Diagnostic Results Rate: normal Rhythm: NSR ST Segments: no acute changes Last Vital Signs Date Time Temp Pulse Resp B/P (MAP) Pulse Ox O2 Delivery O2 Flow Rate FiO2 02/22/19 19:47 98.6 79 16 128/78 98 Room Air Status: improved Disposition: HOME, SELF-CARE Condition: Stable Terrell Harrison MD Feb 22, 2019 20:08
--- NOTE | 2019-02-22 21:15 | NUR ---
ED Nurse Note: Patient cleared for discharge by ERMD. Patient verbalized understanding of discharge instructions. ID band removed. Patient has no s/s of acute distress. 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
[2019-02-22 21:17] VITALS: BP 128/78
--- NOTE | 2019-02-25 11:43 | Cardiology Report ---
APPROVED REPORT EKG Measurement Heart [id number] Normal sinus rhythm Normal ECG
== END 2019-02-22 21:18 | disposition home or self-care (01) ==
LOC: EDBD 19:38 → EMR 20:55
DX: F41.9 Anxiety disorder, unspecified (principal); I10 Essential (primary) hypertension; R73.03 Prediabetes; Z85.9 Personal history of malignant neoplasm, unspecified; Z88.0 Allergy status to penicillin; Z88.1 Allergy status to other antibiotic agents
CPT/HCPCS: 81003; 93005; 99283

== ENCOUNTER 2019-04-04 17:00 | Emergency (ER) | payer OTHER, MEDICAID ==
[~2019-04-04] VITALS: Ht 152.4 cm; Wt 54.4 kg
--- NOTE | 2019-04-04 17:07 | Emergency Room Report ---
History of Present Illness General Chief Complaint: Headache Source: Patient Present Illness HPI Disclaimer: Please note that this report is being documented using DRAGON technology. This can lead to erroneous entry secondary to incorrect interpretation by the dictating instrument. HPI: 79-year-old primarily Indian-speaking female with history of recurrent near syncopal episodes, hypothyroidism, hypokalemia, depression, history of breast cancer many years ago presents for evaluation of headache and near syncope. Patient states she was in her usual state of health until she had a profound coughing fit earlier today after which she became lightheaded and experienced some vertigo. There was no fall, no head injury, no loss of consciousness. This is happened to her many times in the past. She states that there was a "aroma" in the air that triggered a coughing fit but otherwise has not been coughing denies any purulent phlegm. Denies any fever chills, chest pain, palpitations, abdominal pain. She did have some profusely watery diarrhea earlier today without melena or hematochezia. Denies abdominal pain or cramping. She states that she always gets a headache after she gets her episodes of dizziness. She has been evaluated for similar complaints mobile times in the past. She has been compliant with her supplements. She had a full syncope work-up this November. She took a medication for dizziness but cannot recall the name of it prior to arrival. Did not completely resolve her symptoms but did help a little bit. Denies any changes in her vision, neck stiffness, fever, chills, numbness, tingling or any other symptoms at this time. PMH: Hypertension, hypokalemia, recurrent near syncopal episodes, hypothyroidism , breast cancer Allergies: Penicillin Social Hx: Denies tobacco, alcohol or drug abuse Allergies: Coded Allergies: PENICILLINS (Unverified Allergy, Unknown, 11/01/17) Uncoded Allergies: "ANTIBIOTICS" (Allergy, Unknown, 09/18/17) Nursing Documentation-PMH Hx Cardiac Problems: Yes Hx Hypertension: Yes Hx Diabetes: Yes - borderline DM Hx Cancer: Yes Hx Gastrointestinal Problems: No Hx Neurological Problems: Yes Hx Memory Loss: Yes Hx Syncope: Yes Review of Systems All Other Systems: negative except mentioned in HPI Physical Exam Vital Signs Date Time Temp Pulse Resp B/P (MAP) Pulse Ox O2 Delivery O2 Flow Rate FiO2 11/7/19 16:59 98.1 88 16 120/62 (81) 99 Room Air General: Awake and alert, no acute distress HEENT: NC/AT. EOMI. PERRLA. Pupils are 4 mm and reactive bilaterally. No nystagmus. Facial expressions are symmetrical. No dysarthria. Cardiovascular: RRR. S1 and S2 normal. No murmur appreciated Resp: Normal work of breathing. No cough, wheezing or crackles appreciated Abdomen: Abdomen is soft, nondistended. Nontender Skin: Intact. No abrasions, laceration or rash over the exposed skin MSK: Normal tone and bulk. Moving all extremities. No obvious deformity. Neuro: Awake and alert. Mentating appropriately. Symmetrical facial expressions, no nystagmus, no dysarthria, no ataxia on [id number] testing. Back/Spine: No midline tenderness in the cervical, thoracic or lumbosacral spine. Medical Decision Making Diagnostic Impression: Primary Impression: Dizziness of unknown cause Additional Impressions: Headache Lightheaded ER Course 79-year-old female presents for evaluation of lightheadedness and headache after a profound coughing episode earlier today. She also has noted some watery diarrhea beginning this morning without abdominal pain and her physical exam is otherwise unremarkable; nonfocal and no abdominal tenderness. We will check the patient's electrolytes and provide IV fluids, antiemetics and meclizine. There is no head injury or loss of consciousness and I do not believe she requires emergent imaging at this time. Will evaluate after medication and if improved may be discharged home with outpatient follow-up. Laboratory Tests Test 04/04/19 17:26 04/04/19 17:28 White Blood Count 8.0 K/UL (4.8-10.8) Red Blood Count 4.46 M/UL (4.20-5.40) Hemoglobin 12.6 G/DL (12.0-16.0) Hematocrit 37.4 % (37.0-47.0) Mean Corpuscular Volume 84 FL (80-99) Mean Corpuscular Hemoglobin 28.2 PG (27.0-31.0) Mean Corpuscular Hemoglobin Concent 33.6 G/DL (32.0-36.0) Red Cell Distribution Width 11.0 % (11.6-14.8) L Platelet Count 299 K/UL (150-450) Mean Platelet Volume 5.0 FL (6.5-10.1) L Neutrophils (%) (Auto) 47.6 % (45.0-75.0) Lymphocytes (%) (Auto) 25.2 % (20.0-45.0) Monocytes (%) (Auto) 7.4 % (1.0-10.0) Eosinophils (%) (Auto) 18.9 % (0.0-3.0) H Basophils (%) (Auto) 1.0 % (0.0-2.0) Sodium Level 137 MMOL/L (136-145) Potassium Level 3.8 MMOL/L (3.5-5.1) Chloride Level 101 MMOL/L (98-107) Carbon Dioxide Level 26 MMOL/L (21-32) Anion Gap 10 mmol/L (5-15) Blood Urea Nitrogen 7 mg/dL (7-18) Creatinine 0.7 MG/DL (0.55-1.30) Estimate Glomerular Filtration Rate mL/min (>60) Glucose Level 91 MG/DL (74-106) Calcium Level 8.7 MG/DL (8.5-10.1) Urine Color Pale yellow Urine Appearance Slightly cloudy Urine pH 6 (4.5-8.0) Urine Specific [place] 1.005 (1.005-1.035) Urine Protein Negative (NEGATIVE) Urine Glucose (UA) Negative (NEGATIVE) Urine Ketones Negative (NEGATIVE) Urine Blood 3+ (NEGATIVE) H Urine Nitrite Negative (NEGATIVE) Urine Bilirubin Negative (NEGATIVE) Urine Urobilinogen Normal MG/DL (0.0-1.0) Urine Leukocyte Esterase 3+ (NEGATIVE) H Urine RBC 10-15 /HPF (0 - 2) H Urine WBC 20-30 /HPF (0 - 2) H Urine Squamous Epithelial Cells Moderate /LPF (NONE/OCC) H Urine Bacteria Moderate /HPF (NONE) H EKG Diagnostic Results EKG Time: 17:22 Rate: normal Rhythm: NSR ST Segments: no acute changes Other Impression Sinus rhythm, normal axis, normal intervals, no ST segment changes. Rhythm Strip Diag. Results Rhythm Strip Time: 17:22 EP Interpretation: yes Rate: 70s Rhythm: NSR, no PVC's, no ectopy Chest X-Ray Diagnostic Results Chest X-Ray Diagnostic Results : Chest X-Ray Ordered: Yes # of Views/Limited/Complete: 1 View Indication: Other - cough Interpretation: no consolidation, no effusion, no pneumothorax Impression: No acute disease Electronically Signed by: Electronically signed by Dr. Sancho Mercer Reevaluation Time: 18:11 Last Vital Signs Date Time Temp Pulse Resp B/P (MAP) Pulse Ox O2 Delivery O2 Flow Rate FiO2 04/04/19 16:59 98.1 88 16 120/62 (81) 99 Room Air Reevaluation Impression EKG is unremarkable and shows no signs of ischemia or other abnormalities. Chest x-ray shows no obvious infiltrate and is largely unchanged from x-ray on . Labs have returned within normal limits aside from evidence of acute urinary tract infection. The patient will be treated with Keflex for 7 days and follow-up with her PMD. She will be given a dose of IV ceftriaxone prior to departure. She is receiving IV fluids and can be discharged home once they are completed. We discussed reasons to return to the emergency department as well as need for prompt follow-up with her PMD. She understands and agrees with this treatment plan will be discharged home. Disposition: HOME, SELF-CARE Condition: Stable Scripts Cephalexin* (KEFLEX*) 500 Mg Capsule 500 MG ORAL EVERY 12 HOURS, #14 CAP 0 Refills Prov: Sancho Mercer MD 04/04/19 Sancho Mercer MD Apr 04, 2019 17:07
[2019-04-04 17:11] VITALS: BP 120/62
[2019-04-04] MEDS ORDERED: Meclizine 25mg tab ORAL PRN (17:15)
[2019-04-04] MEDS ORDERED: Acetaminophen 500mg (ES) tab ORAL ONE (17:15)
--- NOTE | 2019-04-04 17:16 | NUR ---
ED Nurse Note: Patient was BIBA from home in to ER c/o headache, diziness. Srtates was here at [facility] week ago for the same reason. Patient presented weak, c/o headache 01/05. AAO x4, VSS at this time, skin is dry warm to touch.
[2019-04-04 17:40] LABS: EOSINOPHILS % (AUTO) 18.9 % (0.0-3.0); HEMATOCRIT 37.4 % (37.0-47.0); HEMOGLOBIN 12.6 G/DL (12.0-16.0); LYMPHOCYTES % (AUTO) 25.2 % (20.0-45.0); MEAN CORPUSCULAR VOLUME 84 FL (80-99); MONOCYTES % (AUTO) 7.4 % (1.0-10.0); NEUTROPHILS % (AUTO) 47.6 % (45.0-75.0); PLATELET COUNT 299 K/UL (150-450); RED BLOOD COUNT 4.46 M/UL (4.20-5.40)
[2019-04-04 17:55] LABS: APPEARANCE,URINE SLIGHTLY CLOUDY; BILIRUBIN, URINE NEGATIVE (NEGATIVE); COLOR,URINE PALE YELLOW; GLUCOSE, URINE (UA) NEGATIVE (NEGATIVE); KETONES,URINE NEGATIVE (NEGATIVE); LEUKOCYTE ESTERASE ,URINE 3+ (NEGATIVE); NITRITE,URINE NEGATIVE (NEGATIVE); PH,URINE 6 (4.5-8.0); PROTEIN,URINE NEGATIVE (NEGATIVE); UROBILINOGEN,URINE NORMAL MG/DL (0.0-1.0)
[2019-04-04 17:58] LABS: ANION GAP 10 mmol/L (5-15); BLOOD UREA NITROGEN 7 mg/dL (7-18); CALCIUM 8.7 MG/DL (8.5-10.1); CARBON DIOXIDE 26 MMOL/L (21-32); CHLORIDE 101 MMOL/L (98-107); CREATININE 0.7 MG/DL (0.55-1.30); POTASSIUM 3.8 MMOL/L (3.5-5.1); SODIUM 137 MMOL/L (136-145)
[2019-04-04] MEDS ORDERED: CEPHALEXIN500 MG ORAL (18:09)
[2019-04-04] MEDS ORDERED: cefTRIAXone 1 GM in NS 55 ML IVPB ONE (18:45)
[2019-04-04 19:10] VITALS: BP 120/62
--- NOTE | 2019-04-05 10:43 | Diagnostic Imaging Report ---
Indication: Cough Comparison: 12/16/2018 A single view chest radiograph was obtained. Findings: Pulmonary vascular congestion is present with cardiomegaly. No pleural effusion seen. Surgical clips left axilla noted. Bones are osteopenic. IMPRESSION: Suspected CHF
--- NOTE | 2019-04-06 15:24 | Cardiology Report ---
APPROVED REPORT EKG Measurement Heart [id number] Normal sinus rhythm Normal ECG
== END 2019-04-04 19:10 | disposition home or self-care (01) ==
LOC: EDBD 17:00 → EMR 17:25
DX: R42 Dizziness and giddiness (principal); R51 Headache; I10 Essential (primary) hypertension; E87.6 Hypokalemia; E03.9 Hypothyroidism, unspecified; E11.9 Type 2 diabetes mellitus without complications; Z85.3 Personal history of malignant neoplasm of breast; Z88.0 Allergy status to penicillin; Z88.1 Allergy status to other antibiotic agents
CPT/HCPCS: 36415; 71045; 80048; 81003; 85025; 87086; 87181; 93005; 96361; 96365; 99284; J0696; J7030

== ENCOUNTER 2019-05-17 15:07 | Inpatient (IN) | payer OTHER, MEDICAID ==
[~2019-05-17] VITALS: Ht 152.4 cm; Wt 51.3 kg
[~2019-05-17 15:07] MED LIST changes: +CEPHALEXIN500 MG ORAL
[2019-05-17 15:10] VITALS: BP 120/64
--- NOTE | 2019-05-17 15:10 | NUR ---
ED Nurse Note: Pt BIBA, reports anxiety from disagreements with family. ERPA at bedside.
--- NOTE | 2019-05-17 16:06 | NUR ---
ED Nurse Note: Xray at bedside
[2019-05-17 16:21] LABS: BASOPHILS % (AUTO) 0.9 % (0.0-2.0); HEMATOCRIT 34.4 % (37.0-47.0); HEMOGLOBIN 11.6 G/DL (12.0-16.0); LYMPHOCYTES % (AUTO) 27.2 % (20.0-45.0); MEAN CORPUSCULAR VOLUME 84 FL (80-99); MONOCYTES % (AUTO) 9.1 % (1.0-10.0); NEUTROPHILS % (AUTO) 45.8 % (45.0-75.0); PLATELET COUNT 310 K/UL (150-450); RED BLOOD COUNT 4.07 M/UL (4.20-5.40); RED CELL DISTRIBUTION WIDTH 11.6 % (11.6-14.8); WHITE BLOOD COUNT 6.7 K/UL (4.8-10.8)
[2019-05-17 16:22] LABS: APPEARANCE,URINE CLEAR; BILIRUBIN, URINE NEGATIVE (NEGATIVE); COLOR,URINE PALE YELLOW; GLUCOSE, URINE (UA) NEGATIVE (NEGATIVE); KETONES,URINE NEGATIVE (NEGATIVE); LEUKOCYTE ESTERASE ,URINE NEGATIVE (NEGATIVE); NITRITE,URINE NEGATIVE (NEGATIVE); PH,URINE 6 (4.5-8.0); PROTEIN,URINE NEGATIVE (NEGATIVE); UROBILINOGEN,URINE NORMAL MG/DL (0.0-1.0)
[2019-05-17 16:30] LABS: ANION GAP 11 mmol/L (5-15); BLOOD UREA NITROGEN 16 mg/dL (7-18); CALCIUM 9.2 MG/DL (8.5-10.1); CARBON DIOXIDE 28 MMOL/L (21-32); CHLORIDE 98 MMOL/L (98-107); CREATININE 0.8 MG/DL (0.55-1.30); POTASSIUM 3.5 MMOL/L (3.5-5.1); SODIUM 137 MMOL/L (136-145)
[2019-05-17 16:40] LABS: ALANINE AMINOTRANSFERASE 22 U/L (12-78); ALBUMIN 3.6 G/DL (3.4-5.0); ALBUMIN/GLOBULIN RATIO 1.1 (1.0-2.7); ALKALINE PHOSPHATASE 75 U/L (46-116); ASPARTATE AMINO TRANSFERASE 19 U/L (15-37); BILIRUBIN,TOTAL 0.4 MG/DL (0.2-1.0)
--- NOTE | 2019-05-17 16:45 | Diagnostic Imaging Report ---
Indication: Shortness of breath Technique: One view of the chest Comparison: 04/04/2019 Findings: Lungs and pleural spaces are clear. Heart size is normal. Previously demonstrated interstitial congestion is no longer evident. Left axillary surgical clips are again demonstrated Impression: No acute process
--- NOTE | 2019-05-17 17:40 | Emergency Room Report ---
History of Present Illness General Chief Complaint: General Complaint Source: Patient, EMS Present Illness HPI 79-year-old female with history of anxiety, CHF, and dementia brought in by paramedics due to feeling more anxious and dizzy after she got into an argument with her family member earlier today. Patient appears to be stable with stable vital signs. Upon arrival denies any chest pain, shortness of breath, abdominal pain, nausea vomiting palpitation. Patient then started complaining of a 7 out of 10 headache mild, denies any recent fall or injury. Patient is not a good historian. Complains of progressively getting more dizzy and having an unsteady gait. Reports that he has not been taking any medication for anxiety Allergies: Coded Allergies: PENICILLINS (Unverified Allergy, Unknown, 11/01/17) Uncoded Allergies: "ANTIBIOTICS" (Allergy, Unknown, 09/18/17) Patient History Past Medical History: see triage record Past Surgical History: unable to obtain Pertinent Family History: unable to obtain Now: No Immunizations: UTD Reviewed Nursing Documentation: PMH: Agreed; PSxH: Agreed Nursing Documentation-PMH Past Medical History: No History, Except For Hx Cardiac Problems: Yes - syncope; hypercholesteroiemia, Hx Hypertension: Yes Hx Diabetes: Yes - borderline DM Hx Cancer: Yes - breast cancer Hx Gastrointestinal Problems: No Hx Neurological Problems: Yes - osteoporosis Hx Memory Loss: Yes Hx Syncope: Yes Review of Systems All Other Systems: negative except mentioned in HPI Physical Exam Vital Signs Date Time Temp Pulse Resp B/P (MAP) Pulse Ox O2 Delivery O2 Flow Rate FiO2 05/17/19 15:02 98.2 107 20 122/69 (86) 98 Room Air Sp02 EP Interpretation: reviewed, normal General Appearance: no apparent distress, alert, GCS 15, non-toxic Head: normocephalic, atraumatic Eyes: bilateral eye normal inspection, bilateral eye PERRL ENT: hearing grossly normal, normal pharynx, no angioedema, normal voice Neck: full range of motion, supple, supple/symm/no masses Respiratory: chest non-tender, lungs clear, normal breath sounds, no rhonchi, no respiratory distress, no retraction, no accessory muscle use, no wheezing, speaking full sentences Cardiovascular #1: regular rate, rhythm, no edema, no murmur, normal capillary refill Cardiovascular #2: 2+ carotid (R), 2+ carotid (L), 2+ radial (R), 2+ radial (L) Gastrointestinal: normal bowel sounds, non tender, soft, non-distended, no guarding, no rebound Musculoskeletal: back normal, no calf tenderness Neurologic: alert, rent collector III-XII nml as tested, oriented, distal neuro normal, sensory intact, speech normal Psychiatric: judgement/insight normal, memory normal, mood/affect normal, no suicidal/homicidal ideation Skin: no rash Lymphatic: no adenopathy Medical Decision Making PA Attestation All my diagnosis and treatment plans were reviewed ad discussed with my supervising physician Dr. Hutchins Diagnostic Impression: Primary Impression: Dizziness of unknown cause ER Course 79-year-old female with history of anxiety, CHF, and dementia brought in by paramedics due to feeling more anxious and dizzy after she got into an argument with her family member earlier today. Patient appears to be stable with stable vital signs. Upon arrival denies any chest pain, shortness of breath, abdominal pain, nausea vomiting palpitation. Patient then started complaining of a 7 out of 10 headache mild, denies any recent fall or injury. Patient is not a good historian. Complains of progressively getting more dizzy and having an unsteady gait. Reports that he has not been taking any medication for anxiety Patient has been to [facility] multiple times for near syncope and dizziness symptoms. Ddx considered but are not limited to: Dizziness due to alcohol intoxication, dizziness unspecified, dizziness due to head trauma, dizziness secondary to cardiac reasons Vital signs: are WNL, pt. is afebrile H&PE are most consistent with: Dizziness unsteady gait unspecified ORDERS: Chest pain work-up,head CT no contrast ER intervention: tylenol Patient was admitted for diagnosis of dizziness and unsteady gait to Dr. Darden under supervision of : Cuong pt stable at time of admission Chest X-Ray Diagnostic Results Chest X-Ray Diagnostic Results : Chest X-Ray Ordered: Yes # of Views/Limited/Complete: 1 View Indication: Other EP Interpretation: Yes PA Xray: Interpretation reviewed, by supervising MD, and agrees with findings. Interpretation: no consolidation, no effusion, no pneumothorax Impression: No acute disease Electronically Signed by: Muna Victor PA-C CT/MRI/US Diagnostic Results CT/MRI/US Diagnostic Results : Imaging Test Ordered: head CT no contrast Impression IMPRESSION: 1. No acute intracranial abnormality. 2. Mild chronic small vessel ischemic changes and cerebral volume loss. Last Vital Signs Date Time Temp Pulse Resp B/P (MAP) Pulse Ox O2 Delivery O2 Flow Rate FiO2 05/17/19 15:10 98 16 Room Air 05/17/19 15:10 98.0 120/64 98 Disposition: ADMITTED INPATIENT Condition: Stable Referrals: [facility],REFERRING (PCP) Muna Sapmson May 17, 2019 17:40
--- NOTE | 2019-05-17 17:50 | NUR ---
ED Nurse Note: Pt taken to CT
--- NOTE | 2019-05-17 18:03 | Diagnostic Imaging Report ---
EXAM: CT Head Without Intravenous Contrast CLINICAL HISTORY: DIZZY TECHNIQUE: Axial computed tomography images of the head/brain without intravenous contrast. CTDI is 62.7 mGy and DLP is 1269.5 mGy-cm. One or more of the following dose reduction techniques were used: automated exposure control, adjustment of the mA and/or kV according to patient size, use of iterative reconstruction technique. COMPARISON: CT head on 11/20/2018 FINDINGS: Brain: No acute infarct or hemorrhage identified. No extra-axial fluid collection. No mass effect or midline shift. Scattered areas of hypoattenuation in the supratentorial white matter likely represent chronic small vessel ischemic changes. Ventricles and sulci: Prominence of the ventricles and sulci is likely secondary to cerebral volume loss. Bones: Normal. No bony lesion or fracture. Subcutaneous tissues: Normal. Sinuses: Normal. No air-fluid levels or mucosal thickening. Mastoid air cells: Normal. Orbits: Bilateral lens implants. Other: Atherosclerotic calcifications in the intracranial vasculature. IMPRESSION: 1. No acute intracranial abnormality. 2. Mild chronic small vessel ischemic changes and cerebral volume loss.
--- NOTE | 2019-05-17 18:58 | NUR ---
HAND-OFF: Report given to Easton Sahni. Pt remains in stable condition.
[2019-05-17 19:30] VITALS: BP 120/64
--- NOTE | 2019-05-17 20:32 | NUR ---
ED Nurse Note: pt able to ambulate to restroom with a steady gait. she is eating and drinking. she does not appear to be in any distress at this time. will continue to monitor pt
--- NOTE | 2019-05-17 20:49 | NUR ---
ED Nurse Note: called and gave report to KATHLEEN Miller
--- NOTE | 2019-05-17 21:30 | NUR ---
NURSE NOTES: Pt. safely arrived on unit, received report from KATHLEEN Sahni. Belonging list reviewed and signed by pt. Pt. AAOx4, on room air, notably anxious. Pt. denies pain, no shortness of breath noted. Oriented pt. to room and unit. IV left AC intact and patent. Skin intact, redness noted on left arm. Received admission orders from Dr. Darden. Bed is low and locked, side rails x2 are up, bed alarm active, and call light is in reach. Will continue to monitor.
[2019-05-17] MEDS ORDERED: Zolpidem 5mg tab ORAL PRN (22:15)
[2019-05-17] MEDS ORDERED: Milk of Magnesia 30ml Ud ORAL PRN (22:15)
[2019-05-17] MEDS ORDERED: Morphine Sulfate 2mg/ml Inj(IV/IM USE ONLY) IVP PRN (22:15)
[2019-05-17] MEDS: Docusate 100mg cap ORAL SCH (22:15)
[2019-05-17] MEDS: LORazepam 1mg tab ORAL PRN (23:11)
[2019-05-17] MEDS: Enoxaparin 30mg Inj SUBQ SCH (23:32)
[2019-05-17] MEDS: D5 1/2NS 1,000 ML IV SCH (23:33)
[2019-05-18] VITALS: BP 106/46
[2019-05-18 04:00] VITALS: BP 120/76
--- NOTE | 2019-05-18 07:25 | NUR ---
NURSE NOTES: Received patient A/A/Ox4, yemeni speaking. ambulatory. on room air. Pt. denies pain, no shortness of breath noted. IV on left AC intact and patent. IVF infusing well. Skin intact. Bed is low and locked, side rails x2 are up, bed alarm active, and call light is in reach. Will continue to monitor.
--- NOTE | 2019-05-18 07:42 | NUR ---
HAND-OFF: Report given to FADUMO Lowe.
[2019-05-18 08:00] VITALS: BP 116/49
[2019-05-18] MEDS: D5 1/2NS 1,000 ML IV SCH (08:02)
[2019-05-18] MEDS: Aspirin Baby 81mg ORAL SCH (08:02)
[2019-05-18] MEDS: Docusate 100mg cap ORAL SCH ×2 (08:02→21:00)
[2019-05-18 08:24] LABS: ALANINE AMINOTRANSFERASE 21 U/L (12-78); ALBUMIN 3.3 G/DL (3.4-5.0); ALBUMIN/GLOBULIN RATIO 1.1 (1.0-2.7); ALKALINE PHOSPHATASE 70 U/L (46-116); ANION GAP 7 mmol/L (5-15); ASPARTATE AMINO TRANSFERASE 16 U/L (15-37); BILIRUBIN,TOTAL 0.4 MG/DL (0.2-1.0); BLOOD UREA NITROGEN 11 mg/dL (7-18); CALCIUM 8.9 MG/DL (8.5-10.1); CARBON DIOXIDE 27 MMOL/L (21-32); CHLORIDE 102 MMOL/L (98-107); CHOLESTEROL 166 MG/DL (< 200); CREATININE 0.8 MG/DL (0.55-1.30); HDL CHOLESTEROL 71 MG/DL (40-60); POTASSIUM 3.1 MMOL/L (3.5-5.1); SODIUM 136 MMOL/L (136-145)
[2019-05-18 09:58] LABS: TRIGLYCERIDES 108 MG/DL (30-150)
--- NOTE | 2019-05-18 10:04 | NUR ---
NURSE NOTES: made PMD aware of the k+3.1 today. new order obtained. will cont the plan of care.
--- NOTE | 2019-05-18 10:42 | History & Physical ---
History and Physical History & Physicial seen and Examined. Full Dictation completed on 1039 hrs Rowena Darden MD May 18, 2019 10:41
--- NOTE | 2019-05-18 10:43 | General Progress Note ---
Assessment/Plan Assessment/Plan: Full Dictatino in progress Plan; 1- Acute Encephalopathy 2- Hyperlipidemia 3- hypothyroidism Plan: Brain MRI Cardiology consulted Echo Subjective Allergies: Coded Allergies: ADHESIVE TAPE (Verified Allergy, Mild, Itching, 05/18/19) PENICILLINS (Unverified Allergy, Unknown, 11/01/17) Uncoded Allergies: "ANTIBIOTICS" (Allergy, Unknown, 09/18/17) Objective Last 24 Hour Vital Signs Date Time Temp Pulse Resp B/P (MAP) Pulse Ox O2 Delivery O2 Flow Rate FiO2 05/18/19 08:00 99.7 69 18 116/49 (71) 98 05/18/19 04:00 98.0 62 18 120/76 (91) 98 05/18/19 00:00 98.5 69 18 106/46 (66) 99 05/18/19 00:00 Room Air 05/17/19 20:55 98.0 79 14 120/64 98 Room Air 05/17/19 19:30 98.0 79 14 120/64 98 Room Air 05/17/19 15:10 98 16 Room Air 05/17/19 15:10 98.0 98 14 120/64 98 Room Air 05/17/19 15:02 98.2 107 20 122/69 (86) 98 Room Air Intake and Output 05/17/19 05/18/19 18:59 06:59 Intake Total 0 ml 600 ml Output Total 350 ml Balance 0 ml 250 ml Intake Oral 0 ml 0 ml IV Total 600 ml Output Urine Total 350 ml # Voids 1 # Bowel Movements 2 Laboratory Tests 05/17/19 16:10: White Blood Count 6.7, Red Blood Count 4.07L, Hemoglobin 11.6L, Hematocrit 34.4L , Mean Corpuscular Volume 84, Mean Corpuscular Hemoglobin 28.4, Mean Corpuscular Hemoglobin Concent 33.6, Red Cell Distribution Width 11.6, Platelet Count 310, Mean Platelet Volume 5.0L, Neutrophils (%) (Auto) 45.8, Lymphocytes ( %) (Auto) 27.2, Monocytes (%) (Auto) 9.1, Eosinophils (%) (Auto) 17.0H, Basophils (%) (Auto) 0.9, Urine Color Pale yellow, Urine Appearance Clear, Urine pH 6, Urine Specific [place] 1.010, Urine Protein Negative, Urine Glucose (UA) Negative, Urine Ketones Negative, Urine Blood 2+H, Urine Nitrite Negative, Urine Bilirubin Negative, Urine Urobilinogen Normal, Urine Leukocyte Esterase Negative, Urine RBC 0-2, Urine WBC 0-2, Urine Squamous Epithelial Cells Few, Urine Bacteria None, Sodium Level 137, Potassium Level 3.5, Chloride Level 98, Carbon Dioxide Level 28, Anion Gap 11, Blood Urea Nitrogen 16, Creatinine 0.8, Estimat Glomerular Filtration Rate , Glucose Level 96, Calcium Level 9.2, Total Bilirubin 0.4, Aspartate Amino Transf (AST/SGOT) 19, Alanine Aminotransferase ( ALT/SGPT) 22, Alkaline Phosphatase 75, Troponin I 0.013, Pro-B-Type Natriuretic Peptide 733H, Total Protein 7.0, Albumin 3.6, Globulin 3.4, Albumin/Globulin Ratio 1.1, Urine Opiates Screen Negative, Urine Barbiturates Screen Negative, Phencyclidine (PCP) Screen Negative, Urine Amphetamines Screen Negative, Urine Benzodiazepines Screen Negative, Urine Cocaine Screen Negative, Urine Marijuana (THC) Screen Negative 05/18/19 06:55: Sodium Level 136, Potassium Level 3.1L, Chloride Level 102, Carbon Dioxide Level 27, Anion Gap 7, Blood Urea Nitrogen 11, Creatinine 0.8, Estimat Glomerular Filtration Rate , Glucose Level 119H, Calcium Level 8.9, Total Bilirubin 0.4, Aspartate Amino Transf (AST/SGOT) 16, Alanine Aminotransferase ( ALT/SGPT) 21, Alkaline Phosphatase 70, Troponin I 0.000, Pro-B-Type Natriuretic Peptide 660H, Total Protein 6.4, Albumin 3.3L, Globulin 3.1, Albumin/Globulin Ratio 1.1, D-Dimer 0.53H, Hemoglobin A1c 6.0, Triglycerides Level 108, Cholesterol Level 166, LDL Cholesterol 70, HDL Cholesterol 71H, Cholesterol/HDL Ratio 2.3L Height (Feet): 5 Height (Inches): 0.00 Weight (Pounds): 113 Rowena aDrden MD May 18, 2019 10:43
[2019-05-18 12:00] VITALS: BP 118/52
--- NOTE | 2019-05-18 12:32 | NUR ---
CARDIOLOGY: MARIE ZABALA ROOM : [facility] [id number] Temporary 2-D ECHO REPORT Technically difficult study due to poor acoustical windows. Normal left ventricular chamber size. Mild anteroseptal wall basal to distal hypokinesis . Left ventricular ejection fraction estimated to be 45 %. No evidence of left ventricular hypertrophy . No evidence of pericardial effusion. All other cardiac chamber sizes are within normal limits. Focal aortic valve sclerosis with adequate cusp excursion. Thickened mitral valve leaflets with normal excursion. Mitral annulus and aortic root calcification. Pulmonic valve not well visualized. Normal tricuspid valve structure. IVC at normal size with physiologic collapse. A color flow and spectral Doppler study was performed and revealed: Mild to moderate aortic insufficiency. Mild to moderate mitral regurgitation. Mitral diastolic velocities suggest reduced left ventricular relaxation c/w mild LV diastolic dysfunction (Grade I ). Mild tricuspid regurgitation. Tricuspid systolic velocities suggests peak right ventricular systolic pressure of 31mmHg.
--- NOTE | 2019-05-18 14:23 | NUR ---
PT Note PT suzanne completed, treatment initiated. Patient has muscle weakness with postural sway noted all throughout gait training, making her at a risk for falls. Patient needs PT to increase her muscle strength and balance to improve her safety in mobility and gait to enable her to return home. Addendum: 05/18/19 at 1423 by STANTON TAYLOR PT Amended: Links added.
[2019-05-18] MEDS: LORazepam 1mg tab ORAL PRN (14:31)
--- NOTE | 2019-05-18 15:45 | History and Physical Report ---
DATE OF ADMISSION: 05/17/2019 SOURCE OF INFORMATION: The patient and EMR. HISTORY OF PRESENT ILLNESS: The patient is an 79-year-old female with history of dementia, hyperlipidemia, hypothyroidism, who presented for the feeling dizzy for the last 2-5 days. The patient denies any lapse of memory. The patient denies lapse in the consciousness. The patient denies any fall. The patient reported that living with the at home. The patient denies any nausea, vomiting, diarrhea, constipation, fever, or chills. ALLERGIES: To penicillin. FAMILY HISTORY: Reviewed and noncontributory. CURRENT HOSPITAL MEDICATIONS: Including Lovenox subcutaneous, aspirin, Protonix. PAST MEDICAL HISTORY: Including, but not limited to, dementia, hypothyroidism, hyperlipidemia, osteoporosis, GERD. SOCIAL HISTORY: No reported history of illicit drug abuse, smoking, or alcohol abuse. PAST SURGICAL HISTORY: Including, but not limited to C-sections. PHYSICAL EXAMINATION: VITAL SIGNS: Blood pressure 120/80, temperature 98.2, pulse oximetry 98% on room air, pulse rate 100, respiratory rate 18. HEAD AND NECK: Atraumatic and normocephalic. CHEST: Clear to auscultation. HEART: S1, S2. Regular rate and rhythm. ABDOMEN: Soft. No organomegaly. MUSCULOSKELETAL: No gross lateralized deficit. NEUROLOGY: Awake, alert, oriented x3. No gross cranial nerve deficit. LABORATORY DATA: Labs dated May 17 shows hemoglobin of 11.6, MCV of 84, platelet counts of 300. Sodium 137, creatinine 0.8. Troponin x2, negative. BNP 700. LDL of 70. Potassium of 3.5. ASSESSMENT AND PLAN: 1. Acute encephalopathy. 2. Dementia. 3. Hyperlipidemia. 4. Hypothyroidism. 5. Psychiatric disease. 6. GI and DVT prophylaxis. PLAN OF CARE: I would continue with tele monitoring. We will get a 2D echo. We will do the brain MRI. We will continue with home medications. We will hold the anti-psychiatric medications. Cardiology consulted. COMMENTS: The time of this dictation does not reflect the actual time of encounter. Rowena Darden M.D. DR: JAVED JOB#: [id number] CC:
[2019-05-18 16:00] VITALS: BP 127/62
--- NOTE | 2019-05-18 18:30 | NUR ---
NURSE NOTES: patient is tolerating food intake well. no s/s n/v. ambulates with minimal assist. kept bed in the lowest position. siderails are upx2. call light is within reach. placed bed alarm on @ all times. will cont to monitor.
--- NOTE | 2019-05-18 19:11 | NUR ---
HAND-OFF: Report given to [facility].
--- NOTE | 2019-05-18 19:45 | NUR ---
NURSE NOTES: RECEIVED PT FROM KATHLEEN MEJIA. PT IS AWAKE, AAOX4, ON ROOM AIR, DENIES PAIN AND SOB. IV ON RIGHT FOREARM IS INTACT AND PATENT. BED IS LOCKED AND LOW, BED ALARMS ACTIVE, SIDE RAILS UP X2 AND CALL LIGHT IS WITHIN REACH. WILL CONTINUE TO MONITOR.
[2019-05-18 20:00] VITALS: BP 109/46
--- NOTE | 2019-05-18 21:05 | Consultation ---
Consult Note Assessment/Plan Cardiology for Dr. Arriaza full consult dictated #[id number] Korin Capellan MD May 18, 2019 21:05
[2019-05-18] MEDS: Enoxaparin 30mg Inj SUBQ SCH (23:47)
[2019-05-19] VITALS: BP_SYST 116; BP_SYST 117; BP_DIAS 56; BP_DIAS 57
--- NOTE | 2019-05-19 00:15 | Consultation ---
DATE OF CONSULTATION: 05/18/2019 REASON FOR CONSULTATION: Dizziness. Cardiology consult being done as coverage for Dr. Arriaza. HISTORY OF PRESENT ILLNESS: The patient is an 79-year-old woman with a history of hypothyroidism, hyperlipidemia, and cognitive dysfunction (memory loss) who was admitted with dizziness. History is difficult as the patient speaks mostly Peruvian and applications project manager is not currently available. However she reports dizziness sensation of room spinning for the past few days. She had an episode of dizziness followed by a fall but does not believe she lost consciousness. She denies head injury. She has no chest pain, dyspnea, or palpitations. There is no history of coronary disease or heart failure. MEDICATIONS: Currently aspirin 81 mg daily, Protonix 40 mg daily, Lovenox 30 mg q. 24 hours subcutaneously, Tylenol as needed, Colace 100 mg twice daily, Ativan as needed, Zofran as needed. ALLERGIES: Penicillin and adhesive tape. PAST MEDICAL HISTORY: As noted above dementia, hypothyroidism, hyperlipidemia. SOCIAL HISTORY: There is no history of tobacco, alcohol, or drug use. PHYSICAL EXAMINATION: VITAL SIGNS: Blood pressure is 127/62, pulse 72 and regular, respirations 18, afebrile, oxygen saturation 98% on room air. GENERAL: Alert, well-developed female, in no acute distress. HEENT: Normocephalic and atraumatic. Pupils are equal, round, and reactive to light. Sclerae anicteric. Oral mucosa are moist. NECK: Supple. There is no jugular venous distention. Carotid pulses are 2+ bilaterally without bruits. LUNGS: Clear to auscultation bilaterally. HEART: Regular rate and rhythm. S1 and S2 with no murmur or S3 or S4. ABDOMEN: Soft, nontender. No organomegaly or masses. EXTREMITIES: No peripheral edema. A 2+ dorsalis pedis pulses bilaterally. NEUROLOGIC: No gross focal motor deficits. LABORATORY DATA: Hemoglobin 11.6, white blood count 6700, platelets 310,000. Sodium 136, potassium 3.1, chloride 102, bicarbonate 27, BUN 11, creatinine 0.8. Troponin 0. EKG is pending. Head CT showed small vessel disease, no acute hemorrhage or CVA. Chest x-ray showed no acute abnormality, clear lungs, normal heart size. ASSESSMENT AND RECOMMENDATIONS: The patient is an 79-year-old woman with history of hyperlipidemia, hypothyroidism, and dementia, who was admitted with dizziness and a nonsyncopal fall. She is a fair historian. She was monitored on telemetry overnight and had no acute arrhythmia. She has no evidence for myocardial ischemia. Does not appear with evidence for an acute coronary syndrome. The causes of her dizziness and fall may have been due to orthostatic hypotension, arrhythmia or primary neurologic cause of vertigo or unsteady gait. I would favor checking orthostatic vital signs. We will obtain an echo to evaluate left ventricular function and valves. We would consider event monitoring for longer term arrhythmia monitoring. We would also favor Neurology evaluation. Dr. Arriaza will continue to follow the patient starting 05/20/2019. Korin Capellan M.D. DR: Tyshawn JOB#: [id number] CC:
[2019-05-19] MEDS: D5 1/2NS 1,000 ML IV SCH ×3 (03:30→19:33)
[2019-05-19 04:00] VITALS: BP 101/48
--- NOTE | 2019-05-19 07:57 | NUR ---
HAND-OFF: Report given to Raven Rajput RN and KATHLEEN An.
--- NOTE | 2019-05-19 07:58 | NUR ---
NURSE NOTES: Report received from Paul RN. Patient awake and alert x 4 in semi fowlers position in bed. 22 yamel in right forearm flushed and patent. patient resumed on IV fluids at 75 cc/hr. Patient complains of calf pain, D dimer slightly elevated. Doctor Adelso made aware during his morning rounds. Ordered venous duplex and to monitor magnesium levels. Will continue to monitor laboratory values. Bed locked and in lowest position. Table and call light within reach. Will continue to follow plan of care.
[2019-05-19 08:00] VITALS: BP 152/73
--- NOTE | 2019-05-19 08:40 | General Progress Note ---
Assessment/Plan Assessment/Plan: S: I am ok O: reported minimal dizinss, no sob, no cp PHYSICAL EXAMINATION:HEAD AND NECK: Atraumatic and normocephalic. CHEST: Clear to auscultation.HEART: S1, S2. Regular rate and rhythm. ABDOMEN: Soft. No organomegaly.MUSCULOSKELETAL: No gross lateralized deficit. NEUROLOGY: Awake, alert, oriented x3. No gross cranial nerve deficit. LABORATORY DATA: Labs dated May 19 reviewed . ASSESSMENT AND PLAN: 1. Acute encephalopathy. 2. Dementia. 3. Hyperlipidemia. 4. Hypothyroidism. 5. Psychiatric disease. 6. GI and DVT prophylaxis. PLAN OF CARE: pending Brain MRI and echo Cardiology note reviewed Subjective Allergies: Coded Allergies: ADHESIVE TAPE (Verified Allergy, Mild, Itching, 05/18/19) PENICILLINS (Unverified Allergy, Unknown, 11/01/17) Uncoded Allergies: "ANTIBIOTICS" (Allergy, Unknown, 09/18/17) Objective Last 24 Hour Vital Signs Date Time Temp Pulse Resp B/P (MAP) Pulse Ox O2 Delivery O2 Flow Rate FiO2 05/19/19 04:00 98.1 71 16 101/48 (65) 98 05/19/19 00:00 97.2 74 16 116/56 (76) 97 05/19/19 00:00 117/57 (77) 05/18/19 21:00 Room Air 05/18/19 20:00 99.1 78 16 109/46 (67) 98 05/18/19 16:00 97.6 72 19 127/62 (83) 98 05/18/19 12:00 99.2 71 18 118/52 (74) 97 05/18/19 09:00 Room Air Intake and Output 05/18/19 05/19/19 19:00 07:00 Intake Total 1305 ml 540 ml Balance 1305 ml 540 ml Intake Oral 480 ml 240 ml IV Total 825 ml 300 ml # Voids 5 2 Laboratory Tests 05/19/19 06:40: Troponin I 0.000 Height (Feet): 5 Height (Inches): 0.00 Weight (Pounds): 113 Rowena Darden MD May 19, 2019 08:40
[2019-05-19] MEDS: Docusate 100mg cap ORAL SCH ×2 (09:11→21:00)
[2019-05-19] MEDS: Aspirin Baby 81mg ORAL SCH (09:12)
[2019-05-19 12:00] VITALS: BP 121/62
--- NOTE | 2019-05-19 12:45 | NUR ---
NURSE NOTES: Venous duplex conducted. Results show no acute DVT. Copy of results in chart.
--- NOTE | 2019-05-19 12:58 | NUR ---
NURSE NOTES: Called cardiology regarding Holter monitoring, if patient will have it done. Was ordered 05/18/19. Babatunde from cardiology will follow up with crm manager. Waiting to hear back on answer.
--- NOTE | 2019-05-19 14:08 | NUR ---
NURSE NOTES: Spoke with Doctor Capellan regarding Holter monitoring. Reported what cardiology told me. Doctor Capellan stated it would be done tomorrow. Will update order.
--- NOTE | 2019-05-19 14:19 | Cardiology Progress Note ---
Assessment/Plan Problem List: (1) Lightheaded (2) Dizziness of unknown cause (3) Hypertension (4) Breast cancer Status: stable, progressing Status Narrative Stable, with symptoms of dizziness improving - ? vertigo vs lightheadedness ( difficult hx as pt w/ some cognitive dysfunction as well as language barrier) Assessment/Plan check ortho VS 24 hr holter pending PT to evaluate gait Consider neuro consult - evaluate for PLYWOOD LAYUP LINE BACK FEEDER pathology, seizure, or tia/ cva causing dizziness. Subjective ROS Limited/Unobtainable: No Subjective Cardiology for Dr. Arriaza Mrs Banks reports improvement in dizziness. Ambulating in halls with assist. Objective Last 24 Hour Vital Signs Date Time Temp Pulse Resp B/P (MAP) Pulse Ox O2 Delivery O2 Flow Rate FiO2 05/19/19 12:00 98.5 87 18 121/62 (81) 99 05/19/19 09:00 Room Air 05/19/19 08:00 97.8 84 18 152/73 (99) 97 05/19/19 04:00 98.1 71 16 101/48 (65) 98 05/19/19 00:00 97.2 74 16 116/56 (76) 97 05/19/19 00:00 117/57 (77) 05/18/19 21:00 Room Air 05/18/19 20:00 99.1 78 16 109/46 (67) 98 05/18/19 16:00 97.6 72 19 127/62 (83) 98 General Appearance: WD/WN, no apparent distress, alert EENT: PERRL/EOMI Neck: supple, no JVD Rhythm: NSR Cardiovascular: normal rate, regular rhythm, no gallop/murmur Respiratory/Chest: lungs clear Abdomen: non tender, soft Extremities: no swelling Neurologic: alert - no focal motor deficit Intake and Output 05/18/19 05/19/19 19:00 07:00 Intake Total 1305 ml 540 ml Balance 1305 ml 540 ml Intake Oral 480 ml 240 ml IV Total 825 ml 300 ml # Voids 5 2 Laboratory Tests Test 05/19/19 06:40 Magnesium Level 1.8 MG/DL (1.8-2.4) Troponin I 0.000 ng/mL (0.000-0.056) Korin Capellan MD May 19, 2019 14:19
[2019-05-19 16:00] VITALS: BP 116/55
[2019-05-19 16:46] LABS: ANION GAP 9 mmol/L (5-15); BLOOD UREA NITROGEN 22 mg/dL (7-18); CALCIUM 8.9 MG/DL (8.5-10.1); CARBON DIOXIDE 26 MMOL/L (21-32); CHLORIDE 102 MMOL/L (98-107); CREATININE 0.7 MG/DL (0.55-1.30); POTASSIUM 4.2 MMOL/L (3.5-5.1); SODIUM 137 MMOL/L (136-145)
--- NOTE | 2019-05-19 17:00 | NUR ---
NURSE NOTES: Patient found crying in bed. Patient stated that she felt anxious, trapped, and scared. Patient unable to calm down. Gave PRN ativan, turned on a/c, gave drink of water, and vanilla ensure per patient request. Perla WANG was able to stay with the patient until patient was able to calm down. Patient stated that she feels better. Now in bed asleep.
[2019-05-19] MEDS: LORazepam 1mg tab ORAL PRN (17:09)
--- NOTE | 2019-05-19 17:20 | NUR ---
HAND-OFF: Report given to Randa WANG. Addendum: 05/19/19 at 1936 by Juve Koo RN wrong entry. Report given to Giselle WANG.
--- NOTE | 2019-05-19 19:30 | NUR ---
NURSE NOTES: RECEIVED PT FROM KATHLEEN JONES AND KATHLEEN CAIN. PT IS AWAKE, AAOX4, ON ROOM AIR, DENIES PAIN AND SOB, NO ACUTE DISTRESS NOTED. IV ON RIGHT FA IS INTACT AND PATENT. BED IS LOCKED AND LOW, BED ALARMS ACTIVE, SIDE RAILS UP X2 AND CALL LIGHT IS WITHIN REACH. WILL CONTINUE TO MONITOR.
[2019-05-19 20:00] VITALS: BP 107/50
[2019-05-20] VITALS: BP 115/67
[2019-05-20] MEDS: Enoxaparin 30mg Inj SUBQ SCH
[2019-05-20 04:00] VITALS: BP 117/70
[2019-05-20 08:00] VITALS: BP 121/56
--- NOTE | 2019-05-20 08:00 | NUR ---
NURSE NOTES: Patient is alert and oriented,respirations unlabored,IV fluids infusing as ordered,no complaints at this time.Call light within reach.
--- NOTE | 2019-05-20 08:09 | NUR ---
HAND-OFF: Report given to KATHLEEN TOBAR.
--- NOTE | 2019-05-20 08:58 | NUR ---
MRI BRAIN W/O COMPLETED.
[2019-05-20] MEDS: Docusate 100mg cap ORAL SCH (09:44)
[2019-05-20] MEDS: Aspirin Baby 81mg ORAL SCH (09:44)
--- NOTE | 2019-05-20 10:37 | General Progress Note ---
Assessment/Plan Status: stable, progressing Assessment/Plan: S: I am ok O: reported minimal dizinss, no sob, PHYSICAL EXAMINATION:HEAD AND NECK: Atraumatic and normocephalic. CHEST: Clear to auscultation.HEART: S1, S2. Regular rate and rhythm. ABDOMEN: Soft. No organomegaly.MUSCULOSKELETAL: No gross lateralized deficit. NEUROLOGY: Awake, alert, oriented x3. No gross cranial nerve deficit. LABORATORY DATA: Labs dated May 20 reviewed . ASSESSMENT AND PLAN: 1. Acute encephalopathy. 2. Dementia. 3. Hyperlipidemia. 4. Hypothyroidism. 5. Psychiatric disease. 6. GI and DVT prophylaxis. PLAN OF CARE: pending Brain MRI Cardiology note reviewed Subjective Allergies: Coded Allergies: ADHESIVE TAPE (Verified Allergy, Mild, Itching, 05/18/19) PENICILLINS (Unverified Allergy, Unknown, 11/01/17) Uncoded Allergies: "ANTIBIOTICS" (Allergy, Unknown, 09/18/17) Objective Last 24 Hour Vital Signs Date Time Temp Pulse Resp B/P (MAP) Pulse Ox O2 Delivery O2 Flow Rate FiO2 05/20/19 04:40 87 96 87 05/20/19 04:00 97.4 87 19 117/70 (86) 98 05/20/19 00:00 98.0 80 20 115/67 (83) 97 05/19/19 21:00 Room Air 05/19/19 20:00 98.7 84 20 107/50 (69) 98 05/19/19 16:29 93 05/19/19 16:24 83 05/19/19 16:19 79 05/19/19 16:00 98.3 84 18 116/55 (75) 97 05/19/19 12:00 98.5 87 18 121/62 (81) 99 Intake and Output 05/19/19 05/20/19 19:00 07:00 Intake Total 2025 ml 2025 ml Output Total 350 ml Balance 2025 ml 1675 ml Intake Oral 1200 ml 1200 ml IV Total 825 ml 825 ml Output Urine Total 350 ml # Voids 7 7 # Bowel Movements 1 Laboratory Tests 05/19/19 15:48: Sodium Level 137, Potassium Level 4.2, Chloride Level 102, Carbon Dioxide Level 26, Anion Gap 9, Blood Urea Nitrogen 22H, Creatinine 0.7, Estimat Glomerular Filtration Rate , Glucose Level 122H, Calcium Level 8.9 Height (Feet): 5 Height (Inches): 0.00 Weight (Pounds): 113 Rowena Darden MD May 20, 2019 10:37
[2019-05-20] MEDS: D5 1/2NS 1,000 ML IV SCH (11:15)
[2019-05-20 12:00] VITALS: BP 115/53
--- NOTE | 2019-05-20 12:00 | NUR ---
NURSE NOTES: Patient daughter wanted information regarding labs and wanted the printed copy of labs.Daughter informed that patient sign for PHI and will be sent to Medical records for report.Daughter stated that Doctor has not returned her calls and it seems no one knows what is going.Daughter upset charge Nurse aware and assist daughter and try to give daughter update.Daughter wants to speak with supervisor customer records division, supervisor customer records division noted and will speak with daughter.
--- NOTE | 2019-05-20 13:23 | Diagnostic Imaging Report ---
Indication: Dizziness Technique: The head was imaged in a 1.5 Wendy magnet. Sequences obtained include sagittal and axial T1 FLAIR, axial T2 fast spin echo with fat saturation, axial T2* GRE, axial T2 FLAIR, diffusion and ADC map. Comparison: None Findings: There is mild prominence of the sulci, ventricles, and basal cisterns consistent with atrophy. Mild, nonspecific T2 hyperintensity noted within white matter. This may be due to chronic small vessel disease. There is no restricted diffusion. Dangelo-white differentiation is normal. There is no mass effect, midline shift, edema, or hemorrhage. There are no abnormal extra-axial or intra-axial fluid collections. The corpus callosum and sella are unremarkable. The brainstem and cerebellum are unremarkable. Bone marrow signal within the visualized osseous structures appears age appropriate and unremarkable otherwise. Impression: No acute intracranial findings. Mild atrophy and evidence of chronic small vessel disease involving white matter tracts.
--- NOTE | 2019-05-20 13:30 | NUR ---
PT NOTE Patient independent/supervised with ambulation without assistive device, independent with bed mobility and transfers. No further skilled inpatient PT intervention indicated, patient to be discharged from PT, Yennifer WANG notified. Addendum: 05/20/19 at 1439 by ADEEL GUTIERREZ PT Amended: Links added.
--- NOTE | 2019-05-20 13:50 | NUR ---
HAND-OFF: Report given to Louann WANG
--- NOTE | 2019-05-20 13:54 | NUR ---
NURSE NOTES: Patient alert x4, Faroese speaking; on room air, no sing of distress and shortness of breath; no sing of chest pain; IV Nrevn-Nkl-xul 22G D51/2NS 75cc running; side rails up x2, breaks engaged, bed at lowest position, call light within reach; patient's daughter at the bed side;
[2019-05-20] MEDS ORDERED: ASPIRIN81 MG ORAL (14:28)
[2019-05-20] MEDS ORDERED: D5 1/2NS 1000ml IV ONE (15:59)
--- NOTE | 2019-05-20 16:03 | NUR ---
NURSE NOTES: Patient left the floor around 1600, ambulating accompanied by her daughter; IV access and name tag removed upon discharge; belonging list singed by patient and patient had all her belongings with her; printed package given to patient; patient teaching provided at the bed side regarding follow up appointments, when to report and seek medical help; side effects of medications; patient was stable upon discharge.
--- NOTE | 2019-05-21 14:46 | Discharge Summary ---
Discharge Summary Discharge Summary _ Chest summary DATE OF ADMISSION: 05/17/2019 DATE OF DISCHARGE: 05/20/2019 DISCHARGED BY: Dr. Adelso Linton REASON FOR ADMISSION: [] 79 years old female with past medical history CONSULTANTS: creel hand Dr. Leach of congestive heart failure, hypertension, hypercholesterolemia, breast cancer, borderline diabetes mellitus, osteoporosis , dementia, was brought by editing intern due to feeling of anxiety and dizziness. Patient apparently got into the argument with a family member earlier that day. Patient appears to be stable with stable vital signs upon arrival she denied chest pain shortness of breath abdominal pain nausea vomiting palpitation. Patient is a complaint of the headache 7 out of 10 but denies recent fall or injury. Patient by herself is not a good historian patient reported progressively getting more days and having unsteady gait. Patient was not taking her medication for anxiety upon evaluation vital signs were stable. Chest x-ray revealed no acute cardiopulmonary pathology. CT of the head revealed no acute intracranial abnormality. Mild chronic small vessel ischemic changes and cerebral volume loss noted. Laboratory work-up revealed no leukocytosis stable hemoglobin and hematocrit. Troponin negative proBNP 733 stable electrolytes renal parameters and LFT. Urinalysis revealed no evidence of urinary tract infection. Urine toxicology screen was negative. Patient subsequently admitted for further management. neurologist pulmonary ID specialist GI specialist briar shop supervisor hazardous materials waste technician/oncologist surgery psychiatrist HOSPITAL COURSE: [] Patient admitted to telemetry floor. MRI of the brain revealed no acute intracranial finding. Mild atrophy and evidence of chronic small vessel disease involving white matter tracts noted. Carotid duplex revealed no plaque or stenosis in internal carotid artery.. Lipid panel was stable. Repeated troponin x2 were negative. Echocardiogram demonstrated mild anteroseptal wall basal to distal hypokinesis. Left ventricular ejection fraction estimated to be 45%. No evidence of left ventricular hypertrophy. Mild to moderate aortic insufficiency. Mild to moderate mitral regurgitation. Right ventricular pressure of 31. Ammonia Distiller followed. DVT prophylaxis provided. Antiplatelet therapy with aspirin continued. GI prophylaxis provided patient was working with physical therapy full precaution maintained. Anxiolytic provided as needed. Potassium noted low potassium which was replaced. FINAL DIAGNOSES: 1. [] Acute encephalopathy Dizziness of unknown cause with lightheadedness Hypertension Dementia Hyperlipidemia Hypokalemia Breast cancer blood pressure remained stable on current regimen of antihypertensive. Fall precautions maintained. Patient was working with physical therapy. Patient noted orthostatic vital signs revealed orthostatic changes after IV fluids initially revealed changes after IV fluids no further orthostatic changes. Patient clinically stabilized no physical dizziness patient was recommended to have if dizziness persists lightheadedness or dizziness the like were related to orthostatic changes are resolved with IV hydration encourage appropriate hydration. Orthostatic changes resolved. Anxiety was controlled patient was stabilized and ready for discharge home Psychiatric disorder DISCHARGE MEDICATIONS: See Medication Reconciliation list. DISCHARGE INSTRUCTIONS: [] Patient was discharged home . Follow-up with a primary care provider in 1 week. I have been assigned to dictate discharge summary for this account. I was not involved in the patient's management. Bridget Estrella NP May 21, 2019 14:46
== END 2019-05-20 16:00 | disposition home or self-care (01) | DRG 72 ==
LOC: EDBD 15:07 → EMR 15:24 → 4E 20:00 → EDBEDREQ 20:34 → 4E 05-18 00:40
DX: G93.40 Encephalopathy, unspecified (principal); I95.1 Orthostatic hypotension; E03.9 Hypothyroidism, unspecified; Z88.0 Allergy status to penicillin; F03.90 Unspecified dementia, unspecified severity, without behavioral disturbance, psychotic disturbance, mood disturbance, and anxiety; E78.5 Hyperlipidemia, unspecified; E87.6 Hypokalemia; I10 Essential (primary) hypertension; I35.1 Nonrheumatic aortic (valve) insufficiency; Z85.3 Personal history of malignant neoplasm of breast; M81.0 Age-related osteoporosis without current pathological fracture; R26.81 Unsteadiness on feet; I34.0 Nonrheumatic mitral (valve) insufficiency; Z79.82 Long term (current) use of aspirin; Z91.81 History of falling
CPT/HCPCS: 36415; 70450; 70551; 71045; 80048; 80053; 80061; 80307; 81003; 83036; 83735; 83880; 84484; 85025; 85379; 93005; 93306; 93880; 93970; 99285; J8499

== ENCOUNTER 2019-05-23 15:50 | Emergency (ER) | payer OTHER, MEDICAID ==
[~2019-05-23] VITALS: Ht 152.4 cm; Wt 47.6 kg
[~2019-05-23 15:50] MED LIST changes: +ASPIRIN81 MG ORAL
--- NOTE | 2019-05-23 16:06 | NUR ---
ED Nurse Note: PT CAME IN C/O GENERALIZED BODY PAIN X1WK. DENIES INJURY OR RECENT TRAUMA. VSS, NAD, ERMD AT BEDSIDE. WILL CONTINUE TO MONITOR PATIENT.
[2019-05-23] MEDS ORDERED: ACETAMINOPHEN500 M5 ORAL (16:23)
[2019-05-23] MEDS ORDERED: NAPROXEN250 MG ORAL (16:23)
[2019-05-23] MEDS ORDERED: MECLIZINE HCL25 MG ORAL (16:23)
--- NOTE | 2019-05-23 16:24 | Emergency Room Report ---
History of Present Illness General Chief Complaint: Pain Source: Patient Present Illness HPI 79-year-old female, presents with vague symptoms of body aches x1 week no aggravating relieving factors severity is moderate, and intermittent patient is a poor historian, she is not stating weather is affected by cold, she states her body is aching, denies any fever/chills no chest pain or shortness of breath , she states she wants medications she has been taking Tylenol without any relief, patient presents for evaluation. Allergies: Coded Allergies: ADHESIVE TAPE (Verified Allergy, Mild, Itching, 05/18/19) PENICILLINS (Unverified Allergy, Unknown, 11/01/17) Uncoded Allergies: "ANTIBIOTICS" (Allergy, Unknown, 09/18/17) Patient History Past Medical History: see triage record Now: No Reviewed Nursing Documentation: PMH: Agreed; PSxH: Agreed Nursing Documentation-PMH Past Medical History: No History, Except For Hx Cardiac Problems: Yes - syncope; hypercholesteroiemia, Hx Hypertension: Yes Hx Diabetes: Yes - borderline DM Hx Cancer: Yes - breast cancer Hx Gastrointestinal Problems: No Hx Neurological Problems: Yes - osteoporosis Hx Memory Loss: Yes Hx Syncope: Yes Review of Systems All Other Systems: negative except mentioned in HPI Physical Exam Vital Signs Date Time Temp Pulse Resp B/P (MAP) Pulse Ox O2 Delivery O2 Flow Rate FiO2 05/23/19 15:57 98.1 88 18 120/51 (74) 96 Room Air Sp02 EP Interpretation: reviewed, normal General Appearance: well appearing, no apparent distress, alert Head: normocephalic, atraumatic Eyes: bilateral eye PERRL, bilateral eye EOMI ENT: uvula midline, moist mucus membranes Neck: supple, thyroid normal, supple/symm/no masses Respiratory: lungs clear, no respiratory distress, no retraction, no accessory muscle use Cardiovascular #1: normal peripheral pulses, regular rate, rhythm, no edema, no gallop, no murmur Gastrointestinal: non tender, soft, no guarding, no rebound Musculoskeletal: normal inspection Neurologic: alert, oriented x3 Psychiatric: mood/affect normal Skin: no rash, warm/dry Medical Decision Making Diagnostic Impression: Primary Impression: Pain ER Course 79-year-old female presents with vague complaints of pain, patient was admitted to the hospital on May 17 with a negative work-up MRI negative, counseled patient that she needs to follow-up with her primary care doctor differential diagnosis includes psychosomatic, flu, Will provide patient with a shot of Toradol some Tylenol and meclizine Disposition home with return precautions follow-up with PCP Last Vital Signs Date Time Temp Pulse Resp B/P (MAP) Pulse Ox O2 Delivery O2 Flow Rate FiO2 05/23/19 15:57 98.1 88 18 120/51 (74) 96 Room Air Disposition: HOME, SELF-CARE Condition: Stable Scripts Meclizine Hcl* (MECLIZINE*) 25 Mg Tablet 25 MG ORAL THREE TIMES A DAY PRN for for dizziness, #30 TAB Prov: Pepito Zarate MD 05/23/19 Acetaminophen (Acetaminophen) 500 Mg Tablet 1000 MG ORAL Q8HR PRN for For Pain, #60 TAB Prov: Pepito Zarate MD 05/23/19 Naproxen* (NAPROSYN*) 250 Mg Tablet 250 MG ORAL TID PRN for For Pain, #20 TAB 0 Refills Prov: Pepito Zarate MD 05/23/19 Referrals: [facility] Velazco [facility] Patient Instructions: Chronic Pain, Pain Without a Known Cause Additional Instructions: The patient was provided with discharge instructions, notified to follow-up with a primary care doctor and or specialist in the next 24-48 hours, and to return to the ED if they have worsening of their symptoms. Please note that this report is being documented using DRAGON technology. This can lead to erroneous entry secondary to incorrect interpretation by the dictating instrument. Pepito Zarate MD May 23, 2019 16:24
--- NOTE | 2019-05-23 16:26 | NUR ---
ER DISCHARGE NOTE: Patient is cleared to be discharged per ERMD, pt is aox4, on room air, with stable vital signs. pt was given dc and prescription instructions, pt was able to verbalize understanding, pt id band removed without complications. pt is able to ambulate with steady gait. pt took all belongings.
[2019-05-23] MEDS ORDERED: Ketorolac 30mg Inj IM ONE (16:30)
[2019-05-23] MEDS ORDERED: Meclizine 25mg tab ORAL ONE (16:30)
[2019-05-23] MEDS ORDERED: Acetaminophen 500mg (ES) tab ORAL ONE (16:30)
[2019-05-23 16:34] VITALS: BP 121/58
== END 2019-05-23 18:03 | disposition home or self-care (01) ==
LOC: EMR 16:38
DX: R52 Pain, unspecified (principal); E78.00 Pure hypercholesterolemia, unspecified; I10 Essential (primary) hypertension; E11.9 Type 2 diabetes mellitus without complications; Z85.3 Personal history of malignant neoplasm of breast; M81.0 Age-related osteoporosis without current pathological fracture; Z88.0 Allergy status to penicillin; Z88.1 Allergy status to other antibiotic agents; Z91.09 Other allergy status, other than to drugs and biological substances
CPT/HCPCS: 96372; 99283; J1885

== ENCOUNTER 2019-05-25 11:07 | Emergency (ER) | payer OTHER, MEDICAID ==
[~2019-05-25] VITALS: Ht 160 cm; Wt 49.9 kg
[~2019-05-25 11:07] MED LIST changes: +ACETAMINOPHEN500 M5 ORAL; +MECLIZINE HCL25 MG ORAL; +NAPROXEN250 MG ORAL
[2019-05-25 11:14] VITALS: BP 106/53
[2019-05-25] MEDS ORDERED: Meclizine 25mg tab ORAL ONE (11:15)
--- NOTE | 2019-05-25 11:18 | NUR ---
ED Nurse Note: pt brought in to ER by ambulance from home due to dizziness. pt aao x4 but often refused to answer the questions and sobbing and stopping. pt bedridden at this point but per EMS, pt was able to ambulate at scene. pt denied pain. no cardiac or pulmonary distress noted at this time. vss as documented.
[2019-05-25 11:31] LABS: BASOPHILS % (AUTO) 0.4 % (0.0-2.0); EOSINOPHILS % (AUTO) 13.9 % (0.0-3.0); HEMATOCRIT 32.5 % (37.0-47.0); LYMPHOCYTES % (AUTO) 13.7 % (20.0-45.0); MEAN CORPUSCULAR VOLUME 86 FL (80-99); MONOCYTES % (AUTO) 5.9 % (1.0-10.0); PLATELET COUNT 265 K/UL (150-450); RED BLOOD COUNT 3.77 M/UL (4.20-5.40); RED CELL DISTRIBUTION WIDTH 10.4 % (11.6-14.8); WHITE BLOOD COUNT 11.6 K/UL (4.8-10.8)
[2019-05-25 11:42] LABS: ANION GAP 10 mmol/L (5-15); BLOOD UREA NITROGEN 19 mg/dL (7-18); CALCIUM 8.2 MG/DL (8.5-10.1); CARBON DIOXIDE 26 MMOL/L (21-32); CHLORIDE 98 MMOL/L (98-107); CREATININE 0.7 MG/DL (0.55-1.30); POTASSIUM 3.6 MMOL/L (3.5-5.1); SODIUM 134 MMOL/L (136-145)
[2019-05-25 11:47] LABS: ALANINE AMINOTRANSFERASE 25 U/L (12-78); ALBUMIN 3.5 G/DL (3.4-5.0); ALKALINE PHOSPHATASE 66 U/L (46-116); ASPARTATE AMINO TRANSFERASE 19 U/L (15-37); BILIRUBIN,TOTAL 0.2 MG/DL (0.2-1.0); CREATINE KINASE 178 U/L (26-308)
--- NOTE | 2019-05-25 11:51 | NUR ---
ED Nurse Note: pt refused to review medication reconcilation one by one and said everything is the same.
--- NOTE | 2019-05-25 13:57 | Emergency Room Report ---
History of Present Illness General Chief Complaint: Dizziness Source: Patient Present Illness HPI Patient comes in for complaints of dizziness Upon arrival the patient was somewhat combative difficult to obtain full history from the patient Denies any vomiting or diarrhea denies any chest pain Patient continue to complain of dizziness and difficulty ambulating secondary to that Denies any focal weakness she does get somewhat nauseated with the dizziness Denies any fall or trauma denies any headache Denies any dysuria frequency Allergies: Coded Allergies: ADHESIVE TAPE (Verified Allergy, Mild, Itching, 05/18/19) PENICILLINS (Unverified Allergy, Unknown, 11/01/17) Uncoded Allergies: "ANTIBIOTICS" (Allergy, Unknown, 09/18/17) Patient History Past Medical History: see triage record Reviewed Nursing Documentation: PMH: Agreed; PSxH: Agreed Nursing Documentation-PMH Past Medical History: No History, Except For Hx Hypertension: Yes Hx Diabetes: Yes - borderline DM Hx Cancer: Yes - breast cancer Hx Gastrointestinal Problems: No History Of Psychiatric Problem: Yes Hx Neurological Problems: Yes - osteoporosis Hx Memory Loss: Yes Hx Syncope: Yes Review of Systems All Other Systems: negative except mentioned in HPI Physical Exam Vital Signs Date Time Temp Pulse Resp B/P (MAP) Pulse Ox O2 Delivery O2 Flow Rate FiO2 05/25/19 11:02 97.5 89 19 119/56 (77) 98 Room Air Sp02 EP Interpretation: reviewed, normal General Appearance: no apparent distress Head: normocephalic, atraumatic Eyes: bilateral eye PERRL, bilateral eye EOMI ENT: EOM grossly intact, normal pharynx Neck: supple, thyroid normal Respiratory: lungs clear, no respiratory distress, no retraction Cardiovascular #1: regular rate, rhythm Gastrointestinal: non tender, soft Musculoskeletal: normal inspection - No obvious focal deficit Neurologic: oriented x3, sensory intact, other - Patient is somewhat confused, cannot provide significant input however does report being dizzy, appears oriented to self and is able to have conversation Psychiatric: normal inspection, mood/affect normal Skin: no rash Lymphatic: no adenopathy Medical Decision Making Diagnostic Impression: Primary Impression: Dizziness ER Course Multiple differentials including but not limited to cardiac, cardiopulmonary, neurological infectious process entertained, Patient blood work is at baseline levels She has had fairly extensive inpatient care including MRI as well just in the last several days This was not repeated Given the patient's repeat presentation to the ER Given the continued dizziness patient was requested for admission for further evaluation However at the time of admission patient reports that she wants to go home Understands that at this time it was recommended and requested for her to be admitted to the hospital to obtain further information Multiple diagnoses and differentials have not been ruled out leaving at this time can lead to worsening symptoms and possible , Patient at appropriate mental status, has full decision-making capacity and leaving AGAINST MEDICAL ADVICE Labs Test 05/25/19 11:20 White Blood Count 11.6 K/UL (4.8-10.8) Red Blood Count 3.77 M/UL (4.20-5.40) Hemoglobin 11.0 G/DL (12.0-16.0) Hematocrit 32.5 % (37.0-47.0) Mean Corpuscular Volume 86 FL (80-99) Mean Corpuscular Hemoglobin 29.2 PG (27.0-31.0) Mean Corpuscular Hemoglobin Concent 33.9 G/DL (32.0-36.0) Red Cell Distribution Width 10.4 % (11.6-14.8) Platelet Count 265 K/UL (150-450) Mean Platelet Volume 5.6 FL (6.5-10.1) Neutrophils (%) (Auto) 66.0 % (45.0-75.0) Lymphocytes (%) (Auto) 13.7 % (20.0-45.0) Monocytes (%) (Auto) 5.9 % (1.0-10.0) Eosinophils (%) (Auto) 13.9 % (0.0-3.0) Basophils (%) (Auto) 0.4 % (0.0-2.0) Sodium Level 134 MMOL/L (136-145) Potassium Level 3.6 MMOL/L (3.5-5.1) Chloride Level 98 MMOL/L (98-107) Carbon Dioxide Level 26 MMOL/L (21-32) Anion Gap 10 mmol/L (5-15) Blood Urea Nitrogen 19 mg/dL (7-18) Creatinine 0.7 MG/DL (0.55-1.30) Estimat Glomerular Filtration Rate mL/min (>60) Glucose Level 102 MG/DL (74-106) Calcium Level 8.2 MG/DL (8.5-10.1) Total Bilirubin 0.2 MG/DL (0.2-1.0) Aspartate Amino Transf (AST/SGOT) 19 U/L (15-37) Alanine Aminotransferase (ALT/SGPT) 25 U/L (12-78) Alkaline Phosphatase 66 U/L (46-116) Total Creatine Kinase 178 U/L (26-308) Troponin I 0.008 ng/mL (0.000-0.056) Total Protein 6.9 G/DL (6.4-8.2) Albumin 3.5 G/DL (3.4-5.0) Globulin 3.4 g/dL Albumin/Globulin Ratio 1.0 (1.0-2.7) Lipase 290 U/L (73-393) Rhythm Strip Diag. Results EP Interpretation: yes Rate: 88 Rhythm: NSR, no PVC's, no ectopy Last Vital Signs Date Time Temp Pulse Resp B/P (MAP) Pulse Ox O2 Delivery O2 Flow Rate FiO2 05/25/19 11:14 97.5 85 19 106/53 99 Room Air Status: improved Disposition: AGAINST MEDICAL ADVICE Condition: Improved Referrals: [facility],REFERRING (PCP) Compa Payton DO May 25, 2019 13:57
--- NOTE | 2019-05-25 14:50 | NUR ---
ED Nurse Note: pt wants to be discharged. LETI made aware.
--- NOTE | 2019-05-25 14:55 | NUR ---
ED Nurse Note: LETI and RN explained pt we are looking for SNF to transfer pt since pt came back to ER frequently for last 2 months for recurrent problems. pt refused. pt informed benefit and risk for leaving AMA. vs stable as documented. no s/s of cardiac or pulmonary distress noted at this time. pt ambulatory with steady gait. pt signed on AMA form with fully understanding. pt left with all her belongings. taxi provided per request.
[2019-05-25 15:07] VITALS: BP 107/68
== END 2019-05-25 16:43 | disposition home or self-care (01) ==
LOC: EDBD 11:07 → EMR 11:32 → CANBEDREQ 15:44 → EMR 16:43
DX: R42 Dizziness and giddiness (principal); Z88.0 Allergy status to penicillin; I10 Essential (primary) hypertension; Z85.3 Personal history of malignant neoplasm of breast; M81.0 Age-related osteoporosis without current pathological fracture
CPT/HCPCS: 36415; 80053; 82550; 83690; 84484; 85025; 87081; 93005; 99284; J7040